=== PATIENT | male | born 1970 | race Caucasian/White ===

== ENCOUNTER 2021-07-03 19:33 | Inpatient (IN) ==
[2021-07-03] MEDS ORDERED: CEFEPIME 2,000 MG/20 ML VIAL IV STA (19:50)
[2021-07-03] MEDS ORDERED: dexAMETHasone**PF** 10 MG/ML VIAL IV ONE (19:50)
[2021-07-03] MEDS ORDERED: SODIUM CHLORIDE 0.9% 1000ML 1,000 ML IV SCH (20:00)
--- NOTE | 2021-07-03 20:04 | Emergency Department Note ---
History of Present Illness General Chief complaint: Shortness of Breath/Dyspnea Stated complaint: SATS IN 80S, COVID+, NOT EATING, DIZZY, SOB Time Seen by Provider: 07/03/21 19:40 History of Present Illness Maximum Pain Intensity: 6 50-year-old male presents to the ED with a chief complaint of increasing shortness of breath as well as some hemoptysis. The patient states that he originally started having symptoms around the . His was diagnosed with Covid but he came to the emergency department and his Covid test at that time was negative. He was otherwise feeling fine and he had minimal symptoms. He came back to the hospital yesterday with worsening symptoms. He had a CT scan of the chest that showed bilateral infiltrates consistent with Covid pneumonia. He did have a positive home Covid test on the . Yesterday was discharged on Zofran and prednisone. He also had Tessalon Perles and albuterol inhaler previously prescribed on the . He has progressively worsened and returns today for further evaluation. The patient had pulse ox of 74% oxygen saturation in triage on room air. He has not been eating or drinking well and has been feeling lightheaded.He is increasingly weak. His shortness of breath is worse with exertion. Home Medications Medication Instructions Recorded Confirmed Type albuterol sulfate 90 mcg/actuation 2 inh INHALATION Q6H #18 g 06/22/21 07/03/21 Rx aerosol inhaler benzonatate 200 mg capsule 200 mg PO TID PRN #60 cap 06/22/21 07/03/21 Rx acetaminophen 500 mg tablet 500 - 1,000 mg PO Q6H PRN 07/02/21 07/03/21 History doxylamine-dextromethorphan 6.25 15 ml PO Q4H PRN 07/02/21 07/03/21 History mg-15 mg/15 mL oral solution (Vicks NyQuil Cough) hydrocodone-homatropine 5 mg-1.5 5 - 10 ml PO Q6H PRN #100 ml 07/02/21 07/03/21 Rx mg/5 mL (5 mL) oral syrup (Hycodan) ibuprofen 200 mg tablet 400 mg PO Q6H PRN 07/02/21 07/03/21 History multivitamin with minerals-folic 2 tab PO DAILY 07/02/21 07/03/21 History acid 200 mcg chewable tablet (Men's Daily Gummies) ondansetron 4 mg disintegrating 4 mg PO Q6H PRN #20 tab 07/02/21 07/03/21 Rx tablet prednisone 50 mg tablet 50 mg PO DAILY 5 Days #5 tab 07/02/21 07/03/21 Rx Allergies Allergy/AdvReac Type Severity Reaction Status Date / Time No Known Allergies Allergy Verified 07/02/21 11:25 Past Med/Surg History Medical History No significant medical problems Surgical History No history of previous surgery Social History Smoking Status: Never smoker Preferred Language: Kazakh marital status: Current Living Situation: Family current occupational status: employed Feels Safe at Home: Yes Review of Systems A total of 10 systems reviewed and were otherwise negative Physical Exam Vital Signs Vital Signs - 24 hr 07/03/21 19:35 07/03/21 19:47 07/03/21 19:55 Temperature 36.6 C Temperature Source Temporal Artery Scan Pulse Rate 84 58 L Pulse Rate [Right Finger] Pulse Rate from SpO2 Sensor 58 L Pulse Rhythm Regular Pulse Strength Normal Respiratory Rate 18 22 Respiratory Effort / Characteristics Non-Labored Spontaneous Respiratory Depth Normal Respiratory Pattern Regular Blood Pressure 100/60 Blood Pressure [Right Arm] Blood Pressure Mean 73 Blood Pressure Mean [Right Arm] Blood Pressure Position Sitting Blood Pressure Position [Right Arm] Pulse Oximetry 74 L 92 97 Oxygen Delivery Method Room Air Oxymask Oxymask Oxygen Flow Rate 10 5 Sepsis Recent Fever Within 48 Hours Yes Sepsis New/Unexplained Change in Mental Status N/A Sepsis Action Taken by Nursing No Action Required 07/03/21 19:58 07/03/21 20:00 07/03/21 20:10 Temperature Temperature Source Pulse Rate 57 L 58 L 64 Pulse Rate [Right Finger] 59 L Pulse Rate from SpO2 Sensor 58 L 65 Pulse Rhythm Pulse Strength Respiratory Rate 24 20 20 Respiratory Effort / Characteristics Spontaneous Respiratory Depth Respiratory Pattern Blood Pressure 105/67 Blood Pressure [Right Arm] 105/67 Blood Pressure Mean 79 Blood Pressure Mean [Right Arm] 79 Blood Pressure Position Blood Pressure Position [Right Arm] Sitting Pulse Oximetry 98 98 95 Oxygen Delivery Method Oxymask Oxymask Oxymask Oxygen Flow Rate 10 5 4 Sepsis Recent Fever Within 48 Hours Sepsis New/Unexplained Change in Mental Status Sepsis Action Taken by Nursing 07/03/21 20:20 07/03/21 20:30 07/03/21 20:40 Temperature Temperature Source Pulse Rate 59 L 69 76 Pulse Rate [Right Finger] Pulse Rate from SpO2 Sensor 59 L 70 74 Pulse Rhythm Pulse Strength Respiratory Rate 22 20 20 Respiratory Effort / Characteristics Spontaneous Spontaneous Respiratory Depth Respiratory Pattern Blood Pressure 115/65 Blood Pressure [Right Arm] Blood Pressure Mean 81 Blood Pressure Mean [Right Arm] Blood Pressure Position Blood Pressure Position [Right Arm] Pulse Oximetry 96 96 95 Oxygen Delivery Method Oxymask Oxymask Oxymask Oxygen Flow Rate 4 4 4 Sepsis Recent Fever Within 48 Hours Sepsis New/Unexplained Change in Mental Status Sepsis Action Taken by Nursing 07/03/21 20:50 07/03/21 21:00 07/03/21 21:10 Temperature Temperature Source Pulse Rate 70 78 84 Pulse Rate [Right Finger] Pulse Rate from SpO2 Sensor 70 77 82 Pulse Rhythm Pulse Strength Respiratory Rate 20 20 22 Respiratory Effort / Characteristics Spontaneous Respiratory Depth Respiratory Pattern Blood Pressure 88/60 L Blood Pressure [Right Arm] Blood Pressure Mean 69 Blood Pressure Mean [Right Arm] Blood Pressure Position Blood Pressure Position [Right Arm] Pulse Oximetry 98 90 90 Oxygen Delivery Method Oxymask Oxymask Oxymask Oxygen Flow Rate 4 4 4 Sepsis Recent Fever Within 48 Hours Sepsis New/Unexplained Change in Mental Status Sepsis Action Taken by Nursing 07/03/21 21:20 07/03/21 21:26 07/03/21 21:30 Temperature Temperature Source Pulse Rate 70 70 69 Pulse Rate [Right Finger] Pulse Rate from SpO2 Sensor 70 71 68 Pulse Rhythm Pulse Strength Respiratory Rate 22 20 22 Respiratory Effort / Characteristics Spontaneous Respiratory Depth Respiratory Pattern Blood Pressure 101/63 101/63 Blood Pressure [Right Arm] Blood Pressure Mean 75 75 Blood Pressure Mean [Right Arm] Blood Pressure Position Blood Pressure Position [Right Arm] Pulse Oximetry 95 93 93 Oxygen Delivery Method Oxymask Oxymask Oxymask Oxygen Flow Rate 4 4 4 Sepsis Recent Fever Within 48 Hours Sepsis New/Unexplained Change in Mental Status Sepsis Action Taken by Nursing 07/03/21 21:34 07/03/21 21:40 07/03/21 21:50 Temperature Temperature Source Pulse Rate 72 71 68 Pulse Rate [Right Finger] Pulse Rate from SpO2 Sensor 73 72 69 Pulse Rhythm Pulse Strength Respiratory Rate Respiratory Effort / Characteristics Respiratory Depth Respiratory Pattern Blood Pressure 106/53 L Blood Pressure [Right Arm] Blood Pressure Mean 70 Blood Pressure Mean [Right Arm] Blood Pressure Position Blood Pressure Position [Right Arm] Pulse Oximetry 93 93 93 Oxygen Delivery Method Oxymask Oxymask Oxymask Oxygen Flow Rate 4 4 4 Sepsis Recent Fever Within 48 Hours Sepsis New/Unexplained Change in Mental Status Sepsis Action Taken by Nursing 07/03/21 22:00 Temperature Temperature Source Pulse Rate 68 Pulse Rate [Right Finger] Pulse Rate from SpO2 Sensor 71 Pulse Rhythm Pulse Strength Respiratory Rate 20 Respiratory Effort / Characteristics Respiratory Depth Respiratory Pattern Blood Pressure 103/67 Blood Pressure [Right Arm] Blood Pressure Mean 79 Blood Pressure Mean [Right Arm] Blood Pressure Position Blood Pressure Position [Right Arm] Pulse Oximetry 91 Oxygen Delivery Method Oxymask Oxygen Flow Rate 4 Sepsis Recent Fever Within 48 Hours Sepsis New/Unexplained Change in Mental Status Sepsis Action Taken by Nursing CONSTITUTIONAL/VITAL SIGNS: Reviewed / noted above. GENERAL: Non-toxic in appearance. INTEGUMENTARY: Warm, dry, and [place]. HEAD: Normocephalic. EYES: without scleral icterus or trauma. ENT/OROPHARYNX: clear and moist. LYMPHADENOPATHY/NECK: Is supple without lymphadenopathy or meningismus. RESPIRATORY: Coarse bilateral left less than right to auscultation bilaterally. Mild increased work of breathing. CARDIOVASCULAR: Regular rate and rhythm. GI/ABDOMEN: Soft and nontender. No organomegaly or pulsatile mass. EXTREMITIES: Warm and well perfused. BACK: No CVA tenderness. NEUROLOGICAL: Intact without focal deficits. PSYCHIATRIC: normal affect. MUSCULOSKELETAL: Normally developed with good muscle tone. TRIAGE NURSING DOCUMENTATION REVIEWED. Course Administered Medications Sodium Chloride (Nss 1000ml) 1,000 mls @ 999 mls/hr IV .Q1H1M ONE Stop: 07/03/21 22:19 Last Admin: 07/03/21 21:31 Dose: 999 mls/hr Documented by: [id number] Discontinued Medications Dexamethasone Sodium Phosphate (DexamethasonePf 10 Mg/Ml Vial) 10 mg IV NOW ONE Stop: 07/03/21 19:51 Last Admin: 07/03/21 20:21 Dose: 10 mg Documented by: [id number] Sodium Chloride (Nss 1000ml) 1,000 mls @ 999 mls/hr IV .Q1H1M GABINO Stop: 07/03/21 21:00 Last Infusion: 07/03/21 21:21 Dose: 0 mls/hr Documented by: [id number] Admin: 07/03/21 20:20 Dose: 999 mls/hr Documented by: [id number] Cefepime HCl (Maxipime) 2,000 mg in 20 mls @ 5 mls/min IV NOW STA; Protocol Stop: 07/03/21 19:53 Last Admin: 07/03/21 20:21 Dose: 5 mls/min Documented by: [id number] Sodium Chloride (Nss) 500 mls @ 999 mls/hr IV .Q31M ONE Stop: 07/03/21 21:49 Last Infusion: 07/03/21 22:03 Dose: 0 mls/hr Documented by: [id number] Admin: 07/03/21 21:31 Dose: 999 mls/hr Documented by: [id number] Critical Care Time Critical Care Time: Yes Total Critical Care Time: 30 I have personally spent 30 minutes of critical care time in the direct management of this patient. This includes bedside care, interpretation of diagnostic studies, and testing, discussion with consultants, patient, and family members, and other required patient management activities. This 30 m inutes is in excess of all separately billable procedures. Medical Decision Making Differential Diagnosis The differential was considered includes acute myocardial infarction, acute coronary syndrome, myocarditis, pericarditis, pericardial effusions /tamponad, esophageal perforation, pulmonary embolism, pneumonia, pneumothorax, cardiomyopathy, congestive heart, anemia , COPD/asthma exacerbation. Medical Records Attestation: I reviewed the patient's medical records. Home Medications Current Medication List: was personally reviewed by me Laboratory Data Attestation: I reviewed the patient's lab results. Result diagrams: 07/03/21 20:14 07/03/21 20:14 Lab Results 07/03/21 07/03/21 07/03/21 Range/Units 20:14 20:14 20:14 WBC 11.86 H (4.8-10.8) K/uL RBC 4.52 L (4.7-6.1) M/uL Hgb 14.2 (14.0-18.0) g/dL Hct 41.1 L (42-52) % MCV 90.9 (80-100) fL MCH 31.4 (25-34) pg MCHC 34.5 (32-36) g/dL RDW Std Deviation 42.8 (36.4-46.3) fL RDW Coeff of Slim 12.7 (11.5-14.5) % Plt Count 171 (130-400) K/uL MPV 10.2 (7.4-10.4) fL Immature Gran % (Auto) 0.2 % Neut % (Auto) 91.7 % Lymph % (Auto) 5.7 % Moore % (Auto) 2.4 % Eos % (Auto) 0.0 % Baso % (Auto) 0.0 % Neut # (Auto) 10.87 H (1.4-6.5) K/uL Lymph # (Auto) 0.68 L (1.2-3.4) K/uL Moore # (Auto) 0.29 (0.11-0.59) K/uL Eos # (Auto) 0.00 (0-0.5) K/uL Baso # (Auto) 0.00 (0-0.2) K/uL Immature Gran # (Auto) 0.02 (0.00-0.02) K/uL PT 9.9 (9.0-12.0) Seconds INR 1.0 (0.9-1.1) APTT 28.6 (21.0-31.0) Seconds PTT Ratio 1.1 Sodium 137 (136-145) mmol/L Potassium 3.9 (3.5-5.1) mmol/L Chloride 105 (98-107) mmol/L Carbon Dioxide 24 (21-32) mmol/L Anion Gap 8 (3-11) BUN 19 (6-23) mg/dl Creatinine 1.10 (0.6-1.4) mg/dl Est Cr Clr Drug Dosing 80.4 ml/min Est GFR ( Amer) 90.9 ml/min Est GFR (Non-Af Amer) 78.4 ml/min BUN/Creatinine Ratio 17.3 (10-20) Glucose 174 H (70-99(Fasting)) mg/dl Lactate (0.4-2.0) mmol/L Calcium 8.6 (8.5-10.1) mg/dl Magnesium 2.0 (1.7-2.4) mg/dl Total Bilirubin 0.7 (0.2-1.0) mg/dl AST 51 H (13-39) U/L ALT 83 H (7-52) U/L Alkaline Phosphatase 127 H (34-104) U/L Troponin I 0.03 (0-0.04) ng/ml C-Reactive Protein (0-0.5) mg/dl Total Protein 6.4 (6.0-8.3) gm/dl Albumin 3.5 (3.4-5.0) gm/dl Globulin 2.9 (2.5-4.0) gm/dl Albumin/Globulin Ratio 1.2 (0.9-2) Procalcitonin (0-0.5) ng/ml Adenovirus (PCR) (NotDetected) B. pertussis DNA (PCR) (NotDetected) B.parapertussis DNA PCR (NotDetected) C. pneumoniae DNA (PCR) (NotDetected) Coronavirus OC43 (PCR) (NotDetected) Coronavirus HKU1 (PCR) (NotDetected) Coronavirus 229E (PCR) (NotDetected) SARS-CoV-2 (PCR) (NotDetected) Coronavirus NL63 (PCR) (NotDetected) Human Metapneumovir PCR (NotDetected) Influenza Type A (PCR) (NotDetected) Influenza Type B (PCR) (NotDetected) M. pneumoniae (PCR) (NotDetected) Parainfluenza 1 (PCR) (NotDetected) Parainfluenza 2 (PCR) (NotDetected) Parainfluenza 3 (PCR) (NotDetected) Parainfluenza 4 (PCR) (NotDetected) RSV (PCR) (NotDetected) Entero/Rhino (PCR) (NotDetected) 07/03/21 07/03/21 07/03/21 Range/Units 20:14 20:14 20:14 WBC (4.8-10.8) K/uL RBC (4.7-6.1) M/uL Hgb (14.0-18.0) g/dL Hct (42-52) % MCV (80-100) fL MCH (25-34) pg MCHC (32-36) g/dL RDW Std Deviation (36.4-46.3) fL RDW Coeff of Slim (11.5-14.5) % Plt Count (130-400) K/uL MPV (7.4-10.4) fL Immature Gran % (Auto) % Neut % (Auto) % Lymph % (Auto) % Moore % (Auto) % Eos % (Auto) % Baso % (Auto) % Neut # (Auto) (1.4-6.5) K/uL Lymph # (Auto) (1.2-3.4) K/uL Moore # (Auto) (0.11-0.59) K/uL Eos # (Auto) (0-0.5) K/uL Baso # (Auto) (0-0.2) K/uL Immature Gran # (Auto) (0.00-0.02) K/uL PT (9.0-12.0) Seconds INR (0.9-1.1) APTT (21.0-31.0) Seconds PTT Ratio Sodium (136-145) mmol/L Potassium (3.5-5.1) mmol/L Chloride (98-107) mmol/L Carbon Dioxide (21-32) mmol/L Anion Gap (3-11) BUN (6-23) mg/dl Creatinine (0.6-1.4) mg/dl Est Cr Clr Drug Dosing ml/min Est GFR ( Amer) ml/min Est GFR (Non-Af Amer) ml/min BUN/Creatinine Ratio (10-20) Glucose (70-99(Fasting)) mg/dl Lactate 1.5 (0.4-2.0) mmol/L Calcium (8.5-10.1) mg/dl Magnesium (1.7-2.4) mg/dl Total Bilirubin (0.2-1.0) mg/dl AST (13-39) U/L ALT (7-52) U/L Alkaline Phosphatase (34-104) U/L Troponin I (0-0.04) ng/ml C-Reactive Protein (0-0.5) mg/dl Total Protein (6.0-8.3) gm/dl Albumin (3.4-5.0) gm/dl Globulin (2.5-4.0) gm/dl Albumin/Globulin Ratio (0.9-2) Procalcitonin 0.23 (0-0.5) ng/ml Adenovirus (PCR) Not Detected (NotDetected) B. pertussis DNA (PCR) Not Detected (NotDetected) B.parapertussis DNA PCR Not Detected (NotDetected) C. pneumoniae DNA (PCR) Not Detected (NotDetected) Coronavirus OC43 (PCR) Not Detected (NotDetected) Coronavirus HKU1 (PCR) Not Detected (NotDetected) Coronavirus 229E (PCR) Not Detected (NotDetected) SARS-CoV-2 (PCR) DETECTED A* (NotDetected) Coronavirus NL63 (PCR) Not Detected (NotDetected) Human Metapneumovir PCR Not Detected (NotDetected) Influenza Type A (PCR) Not Detected (NotDetected) Influenza Type B (PCR) Not Detected (NotDetected) M. pneumoniae (PCR) Not Detected (NotDetected) Parainfluenza 1 (PCR) Not Detected (NotDetected) Parainfluenza 2 (PCR) Not Detected (NotDetected) Parainfluenza 3 (PCR) Not Detected (NotDetected) Parainfluenza 4 (PCR) Not Detected (NotDetected) RSV (PCR) Not Detected (NotDetected) Entero/Rhino (PCR) Not Detected (NotDetected) 07/03/21 Range/Units 20:14 WBC (4.8-10.8) K/uL RBC (4.7-6.1) M/uL Hgb (14.0-18.0) g/dL Hct (42-52) % MCV (80-100) fL MCH (25-34) pg MCHC (32-36) g/dL RDW Std Deviation (36.4-46.3) fL RDW Coeff of Slim (11.5-14.5) % Plt Count (130-400) K/uL MPV (7.4-10.4) fL Immature Gran % (Auto) % Neut % (Auto) % Lymph % (Auto) % Moore % (Auto) % Eos % (Auto) % Baso % (Auto) % Neut # (Auto) (1.4-6.5) K/uL Lymph # (Auto) (1.2-3.4) K/uL Moore # (Auto) (0.11-0.59) K/uL Eos # (Auto) (0-0.5) K/uL Baso # (Auto) (0-0.2) K/uL Immature Gran # (Auto) (0.00-0.02) K/uL PT (9.0-12.0) Seconds INR (0.9-1.1) APTT (21.0-31.0) Seconds PTT Ratio Sodium (136-145) mmol/L Potassium (3.5-5.1) mmol/L Chloride (98-107) mmol/L Carbon Dioxide (21-32) mmol/L Anion Gap (3-11) BUN (6-23) mg/dl Creatinine (0.6-1.4) mg/dl Est Cr Clr Drug Dosing ml/min Est GFR ( Amer) ml/min Est GFR (Non-Af Amer) ml/min BUN/Creatinine Ratio (10-20) Glucose (70-99(Fasting)) mg/dl Lactate (0.4-2.0) mmol/L Calcium (8.5-10.1) mg/dl Magnesium (1.7-2.4) mg/dl Total Bilirubin (0.2-1.0) mg/dl AST (13-39) U/L ALT (7-52) U/L Alkaline Phosphatase (34-104) U/L Troponin I (0-0.04) ng/ml C-Reactive Protein 13.36 H (0-0.5) mg/dl Total Protein (6.0-8.3) gm/dl Albumin (3.4-5.0) gm/dl Globulin (2.5-4.0) gm/dl Albumin/Globulin Ratio (0.9-2) Procalcitonin (0-0.5) ng/ml Adenovirus (PCR) (NotDetected) B. pertussis DNA (PCR) (NotDetected) B.parapertussis DNA PCR (NotDetected) C. pneumoniae DNA (PCR) (NotDetected) Coronavirus OC43 (PCR) (NotDetected) Coronavirus HKU1 (PCR) (NotDetected) Coronavirus 229E (PCR) (NotDetected) SARS-CoV-2 (PCR) (NotDetected) Coronavirus NL63 (PCR) (NotDetected) Human Metapneumovir PCR (NotDetected) Influenza Type A (PCR) (NotDetected) Influenza Type B (PCR) (NotDetected) M. pneumoniae (PCR) (NotDetected) Parainfluenza 1 (PCR) (NotDetected) Parainfluenza 2 (PCR) (NotDetected) Parainfluenza 3 (PCR) (NotDetected) Parainfluenza 4 (PCR) (NotDetected) RSV (PCR) (NotDetected) Entero/Rhino (PCR) (NotDetected) ECG Data Attestation: I personally reviewed and interpreted this ECG as follows: Additional Comments: Twelve-lead EKG: Per my interpretation shows a normal sinus rhythm at a rate of 62. No ST elevation. No PVCs. Normal QTC. MDM Narrative Patient presents to the ED with a chief complaint of increasing shortness of breath. Home Covid test was positive on the . CT scan yesterday showed bilateral infiltrates and no PE. His pulse ox today showed 74% on room air. He is saturating 98% on 10 L via facemask. Lung sounds coarse right greater than left. Chest x-ray shows bilateral pneumonia. CBC and chemistry panel was unremarkable. Lactic acid was normal. EKG shows a normal sinus rhythm. There is a transaminitis. Troponin was negative. Glucose is 171. CRP is 13. The patient was empirically given IV fluids, 30 cc/kg. He was given IV Decadron on IV cefepime as well as albuterol. The patient was told the results. Patient will be seen by the hospitalist. Impression & Plan Bilateral pneumonia, Hypoxia Discharge Plan Visit Data Chief Complaint: Shortness of Breath/Dyspnea Stated Complaint: SATS IN 80S, COVID+, NOT EATING, DIZZY, SOB ED Provider: Jose Mar Discharge Problem: Bilateral pneumonia, Hypoxia Forms Stand Alone Forms: My [facility] [employer] Prescriptions Prescriptions: No Action albuterol sulfate 90 mcg/actuation HFA aerosol inhaler 2 inh inhalation Q6H Qty: 18 RF: 2 benzonatate 200 mg capsule 200 mg PO TID PRN (Reason: cough) Qty: 60 RF: 0 acetaminophen 500 mg Tablet 500 - 1,000 mg PO Q6H PRN (Reason: Pain) RF: 0 ibuprofen 200 mg Tablet 400 mg PO Q6H PRN (Reason: Pain) RF: 0 Vicks NyQuil Cough 6.25-15 mg/15 mL Solution 15 ml PO Q4H PRN (Reason: Cough) RF: 0 Men's Daily Gummies 200 mcg Tablet,Chewable 2 tab PO DAILY RF: 0 prednisone 50 mg tablet 50 mg PO DAILY 5 Days Qty: 5 RF: 0 ondansetron 4 mg tablet,disintegrating 4 mg PO Q6H PRN (Reason: nausea and vomiting) Qty: 20 RF: 0 hydrocodone-homatropine [Hycodan] 5-1.5 mg/5 mL (5 mL) syrup 5 - 10 ml PO Q6H PRN (Reason: cough) Qty: 100 RF: 0 Referrals Referrals: PCP,NO [Primary Care Provider] -
[2021-07-03 20:27] LABS: Hematocrit (blood only) 41.1 % (42-52); Hemoglobin 14.2 g/dL (14.0-18.0); Immature Granulocytes # (auto) 0.02 K/uL (0.00-0.02); Immature Granulocytes % (auto) 0.2 %; Lymphocytes # (auto) 0.68 K/uL (1.2-3.4); Lymphocytes % (auto) 5.7 %; Mean Corpuscular Hemoglobin 31.4 pg (25-34); Mean Corpuscular Hgb Conc 34.5 g/dL (32-36); Mean Corpuscular Volume 90.9 fL (80-100); Mean Platelet Volume 10.2 fL (7.4-10.4); Monocytes # (auto) 0.29 K/uL (0.11-0.59); Monocytes % (auto) 2.4 %; Neutrophils # (auto) 10.87 K/uL (1.4-6.5); Neutrophils % (auto) 91.7 %; Platelet Count 171 K/uL (130-400); RDW Coefficient of Variation 12.7 % (11.5-14.5); RDW Standard Deviation 42.8 fL (36.4-46.3); Red Blood Count 4.52 M/uL (4.7-6.1); White Blood Count 11.86 K/uL (4.8-10.8)
[2021-07-03 20:37] LABS: Partial Thromboplastin Ratio 1.1; Partial Thromboplastin Time 28.6 Seconds (21.0-31.0); Prothrombin Time 9.9 Seconds (9.0-12.0)
[2021-07-03 20:46] LABS: Albumin Globulin Ratio 1.2 (0.9-2); Albumin Level 3.5 gm/dl (3.4-5.0); BUN Creatinine Ratio 17.3 (10-20); Bilirubin,Total 0.7 mg/dl (0.2-1.0); Calcium 8.6 mg/dl (8.5-10.1); Creatinine Clr Calc Pharmacy 80.4 ml/min; Est GFR (African American) 90.9 ml/min; Est GFR (Non-African American) 78.4 ml/min; Globulin 2.9 gm/dl (2.5-4.0); Potassium 3.9 mmol/L (3.5-5.1); Total Protein 6.4 gm/dl (6.0-8.3)
[2021-07-03 20:48] LABS: Troponin I 0.03 ng/ml (0-0.04)
[2021-07-03 21:16] LABS: Adenovirus PCR Not Detected (NotDetected); Bordetella parapertussis PCR Not Detected (NotDetected); Bordetella pertussis PCR Not Detected (NotDetected); Chlamydia pneumoniae PCR Not Detected (NotDetected); Coronavirus 229E PCR Not Detected (NotDetected); Coronavirus HKU1 PCR Not Detected (NotDetected); Coronavirus NL63 PCR Not Detected (NotDetected); Coronavirus OC43PCR Not Detected (NotDetected); Human Metapneumovirus PCR Not Detected (NotDetected); Influenza A PCR Not Detected (NotDetected); Influenza B PCR Not Detected (NotDetected); Mycoplasma pneumoniae PCR Not Detected (NotDetected); Parainfluenza Virus 1 PCR Not Detected (NotDetected); Parainfluenza Virus 2 PCR Not Detected (NotDetected); Parainfluenza Virus 3 PCR Not Detected (NotDetected); Parainfluenza Virus 4 PCR Not Detected (NotDetected); Respiratory Syncytial VirusPCR Not Detected (NotDetected); Rhinovirus/Enterovirus PCR Not Detected (NotDetected)
[2021-07-03] MEDS ORDERED: SODIUM CHLORIDE 0.9% 500 ML IV ONE (21:19)
[2021-07-03] MEDS ORDERED: SODIUM CHLORIDE 0.9% 1000ML 1,000 ML IV ONE (21:19)
[2021-07-03 21:29] LABS: Coronavirus CoV-2 (COVID19)PCR DETECTED (NotDetected)
[2021-07-03] MEDS ORDERED: ALBUTEROL HFA 8 GM INHALER INH ONE (22:02)
[2021-07-03] MEDS ORDERED: BENZONATATE 100 MG CAPSULE PO ONE (23:30)
[2021-07-03] MEDS ORDERED: hydrOXYzine HCl 10 MG TAB PO STA (23:30)
--- NOTE | 2021-07-03 23:30 | History & Physical Report ---
Date of Service July 03, 2021 Assessment & Plan (1) Acute hypoxemic respiratory failure: Plan: Secondary to severe COVID-19 pneumonia superimposed bacterial infection Transaminitis Steroid-induced hyperglycemia rule out DM Medical telemetry Supplemental O2 Decadron for severe COVID-19 pneumonia. Neb treatment for bronchospasm causing hypoxemia Azithromycin for superimposed bacterial infection. Antitussives for hemoptysis Follow LFTs, liver ultrasound if with progression Pulmonary consult if without improvement Check hemoglobin A1c DVT prophylaxis SCDs Re: Hemoptysis Full code Total critical care time was 40 minutes. Patient requests for his to be updated of his progress. Ms. Alyson Ceja, contact #[phone]. Text document was generated using InfoRemate voice recognition software. It may contain grammatical or spelling errors. Kindly contact undersigned for clarification of any documentation item in question. History of Present Illness Chief Complaint: Worsening shortness of breath Primary Care Provider: NO PCP History obtained from patient and records. No significant medical history. Two prior ER visits for the month of June,. 3 weeks ago, patient had flulike symptoms with stuffy nose, headache sore throat, body aches, fatigue and diarrhea. Some shortness of breath with right- sided chest pain with coughing. Recent COVID-19 contacts. Patient has not received COVID-19 vaccination. Patient consulted ER 10 days ago. COVID-19 test was negative. Patient sent home after unremarkable work-up. 2 days ago, patient noted worsening junky cough symptoms with shortness of breath. Patient consulted ER. COVID-[address] chest showed viral pneumonia. No pulmonary embolism. IV Decadron given at the ER. Patient sent home on prednisone course. Patient returned to ER for worsening cough with hemoptysis symptoms. Achy headache and upper abdominal pain symptoms from coughing as per patient. O2 sats upon arrival at the ER 80s on room air. Patient received Cefepime and Decadron at the ER. 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 Allergies Allergy/AdvReac Type Severity Reaction Status Date / Time No Known Allergies Allergy Verified 07/02/21 11:25 Home Medications Medication Instructions Recorded Confirmed Type albuterol sulfate 90 mcg/actuation 2 inh INHALATION Q6H #18 g 06/22/21 07/03/21 Rx aerosol inhaler benzonatate 200 mg capsule 200 mg PO TID PRN #60 cap 06/22/21 07/03/21 Rx acetaminophen 500 mg tablet 500 - 1,000 mg PO Q6H PRN 07/02/21 07/03/21 History doxylamine-dextromethorphan 6.25 15 ml PO Q4H PRN 07/02/21 07/03/21 History mg-15 mg/15 mL oral solution (Vicks NyQuil Cough) hydrocodone-homatropine 5 mg-1.5 5 - 10 ml PO Q6H PRN #100 ml 07/02/21 07/03/21 Rx mg/5 mL (5 mL) oral syrup (Hycodan) ibuprofen 200 mg tablet 400 mg PO Q6H PRN 07/02/21 07/03/21 History multivitamin with minerals-folic 2 tab PO DAILY 07/02/21 07/03/21 History acid 200 mcg chewable tablet (Men's Daily Gummies) ondansetron 4 mg disintegrating 4 mg PO Q6H PRN #20 tab 07/02/21 07/03/21 Rx tablet prednisone 50 mg tablet 50 mg PO DAILY 5 Days #5 tab 07/02/21 07/03/21 Rx Past Med/Surg History Medical History No significant medical problems Surgical History No history of previous surgery Social History Smoking Status: Never smoker Hx Alcohol Use: No Hx Substance Use: No Preferred Language: Emirati Communication Ability: 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 Beliefs That Will Affect Care: None marital status: Current Living Situation: Spouse current occupational status: employed Feels Safe at Home: Yes Safety Concerns: Feels Safe At This Time Assistive Devices: Contacts and Glasses Assistive Devices Comment: pt has 1 contact in Review of Systems Review of Systems: As per HPI, all 10 systems reviewed, all other ROS negative Physical Exam Physical Exam: GENERAL: uncomfortable, respiratory distress, incessant coughing SKIN: Normal color, warm HEENT: Cobb palpebral conjunctivae, no ptosis, dry buccal mucosa, O2 mask in place NECK : Supple, no tenderness CHEST : CTA, no tenderness HEART : RRR, no obvious murmurs ABDOMEN: Some distention, nontender EXTREMITIES : No LE swelling/tenderness, no other conspicuous deformities noted NEUROLOGIC : Coherent, no facial asymmetry, no other gross focality Results & Data Results & Data ([facility]) Vital Signs (Past 12 Hours) Vital Signs Temp Pulse Pulse Resp BP BP Pulse Ox 07/03/21 22:40 81 15 94 07/03/21 22:30 81 22 111/67 95 07/03/21 22:20 75 38 H 89 L 07/03/21 22:10 71 41 H 90 07/03/21 22:00 68 22 103/67 91 07/03/21 21:50 68 22 93 07/03/21 21:40 71 22 93 07/03/21 21:34 72 22 106/53 L 93 07/03/21 21:30 69 22 93 07/03/21 21:26 70 20 101/63 93 07/03/21 21:20 70 22 101/63 95 07/03/21 21:10 84 22 90 07/03/21 21:00 78 20 88/60 L 90 07/03/21 20:50 70 20 98 07/03/21 20:40 76 20 95 07/03/21 20:30 69 20 115/65 96 07/03/21 20:20 59 L 22 96 07/03/21 20:10 64 20 95 07/03/21 20:00 58 L 59 L 20 105/67 105/67 98 07/03/21 19:58 57 L 24 98 07/03/21 19:55 58 L 22 97 07/03/21 19:47 92 07/03/21 19:35 36.6 C 84 18 100/60 74 L Laboratory Results Laboratory Results WBC 11.86 K/uL (4.8-10.8) H 07/03/21 20:14 RBC 4.52 M/uL (4.7-6.1) L 07/03/21 20:14 Hgb 14.2 g/dL (14.0-18.0) 07/03/21 20:14 Hct 41.1 % (42-52) L 07/03/21 20:14 MCV 90.9 fL (80-100) 07/03/21 20:14 MCH 31.4 pg (25-34) 07/03/21 20:14 MCHC 34.5 g/dL (32-36) 07/03/21 20:14 RDW Std Deviation 42.8 fL (36.4-46.3) 07/03/21 20:14 RDW Coeff of Lsim 12.7 % (11.5-14.5) 07/03/21 20:14 Plt Count 171 K/uL (130-400) 07/03/21 20:14 MPV 10.2 fL (7.4-10.4) 07/03/21 20:14 Immature Gran % (Auto) 0.2 % 07/03/21 20:14 Neut % (Auto) 91.7 % 07/03/21 20:14 Lymph % (Auto) 5.7 % 07/03/21 20:14 [place] % (Auto) 2.4 % 07/03/21 20:14 Eos % (Auto) 0.0 % 07/03/21 20:14 Baso % (Auto) 0.0 % 07/03/21 20:14 Neut # (Auto) 10.87 K/uL (1.4-6.5) H 07/03/21 20:14 Lymph # (Auto) 0.68 K/uL (1.2-3.4) L 07/03/21 20:14 [place] # (Auto) 0.29 K/uL (0.11-0.59) 07/03/21 20:14 Eos # (Auto) 0.00 K/uL (0-0.5) 07/03/21 20:14 Baso # (Auto) 0.00 K/uL (0-0.2) 07/03/21 20:14 Immature Gran # (Auto) 0.02 K/uL (0.00-0.02) 07/03/21 20:14 PT 9.9 Seconds (9.0-12.0) 07/03/21 20:14 INR 1.0 (0.9-1.1) 07/03/21 20:14 APTT 28.6 Seconds (21.0-31.0) 07/03/21 20:14 PTT Ratio 1.1 07/03/21 20:14 Sodium 137 mmol/L (136-145) 07/03/21 20:14 Potassium 3.9 mmol/L (3.5-5.1) 07/03/21 20:14 Chloride 105 mmol/L (98-107) 07/03/21 20:14 Carbon Dioxide 24 mmol/L (21-32) 07/03/21 20:14 Anion Gap 8 (3-11) 07/03/21 20:14 BUN 19 mg/dl (6-23) 07/03/21 20:14 Creatinine 1.10 mg/dl (0.6-1.4) 07/03/21 20:14 Est Cr Clr Drug Dosing 80.4 ml/min 07/03/21 20:14 Est GFR ( Amer) 90.9 ml/min 07/03/21 20:14 Est GFR (Non-Af Amer) 78.4 ml/min 07/03/21 20:14 BUN/Creatinine Ratio 17.3 (10-20) 07/03/21 20:14 Glucose 174 mg/dl (70-99(Fasting)) H 07/03/21 20:14 Lactate 1.5 mmol/L (0.4-2.0) 07/03/21 20:14 Calcium 8.6 mg/dl (8.5-10.1) 07/03/21 20:14 Magnesium 2.0 mg/dl (1.7-2.4) 07/03/21 20:14 Total Bilirubin 0.7 mg/dl (0.2-1.0) 07/03/21 20:14 AST 51 U/L (13-39) H 07/03/21 20:14 ALT 83 U/L (7-52) H 07/03/21 20:14 Alkaline Phosphatase 127 U/L (34-104) H 07/03/21 20:14 Troponin I 0.03 ng/ml (0-0.04) 07/03/21 20:14 C-Reactive Protein 13.36 mg/dl (0-0.5) H 07/03/21 20:14 Total Protein 6.4 gm/dl (6.0-8.3) 07/03/21 20:14 Albumin 3.5 gm/dl (3.4-5.0) 07/03/21 20:14 Globulin 2.9 gm/dl (2.5-4.0) 07/03/21 20:14 Albumin/Globulin Ratio 1.2 (0.9-2) 07/03/21 20:14 Procalcitonin 0.23 ng/ml (0-0.5) 07/03/21 20:14 Adenovirus (PCR) Not Detected (NotDetected) 07/03/21 20:14 B. pertussis DNA (PCR) Not Detected (NotDetected) 07/03/21 20:14 B.parapertussis DNA PCR Not Detected (NotDetected) 07/03/21 20:14 C. pneumoniae DNA (PCR) Not Detected (NotDetected) 07/03/21 20:14 Coronavirus OC43 (PCR) Not Detected (NotDetected) 07/03/21 20:14 Coronavirus HKU1 (PCR) Not Detected (NotDetected) 07/03/21 20:14 Coronavirus 229E (PCR) Not Detected (NotDetected) 07/03/21 20:14 SARS-CoV-2 (PCR) DETECTED (NotDetected) A* 07/03/21 20:14 Coronavirus NL63 (PCR) Not Detected (NotDetected) 07/03/21 20:14 Human Metapneumovir PCR Not Detected (NotDetected) 07/03/21 20:14 Influenza Type A (PCR) Not Detected (NotDetected) 07/03/21 20:14 Influenza Type B (PCR) Not Detected (NotDetected) 07/03/21 20:14 M. pneumoniae (PCR) Not Detected (NotDetected) 07/03/21 20:14 Parainfluenza 1 (PCR) Not Detected (NotDetected) 07/03/21 20:14 Parainfluenza 2 (PCR) Not Detected (NotDetected) 07/03/21 20:14 Parainfluenza 3 (PCR) Not Detected (NotDetected) 07/03/21 20:14 Parainfluenza 4 (PCR) Not Detected (NotDetected) 07/03/21 20:14 RSV (PCR) Not Detected (NotDetected) 07/03/21 20:14 Entero/Rhino (PCR) Not Detected (NotDetected) 07/03/21 20:[address] chest initial read: Interval increase in severe diffuse patchyinfiltrates including areaswith a ground-glass appearance consistent with COVID-19 related pneumonia, greatest within the lower lobeswith dense consolidations and air bronchograms. No central pulmonaryarteryfilling defects to suggest pulmonaryarterythrombosis. No thoracic aortic aneurysmor dissection is present. Heart is normal in size. No pericardial fluid or thickening. No pleural effusion or pneumothorax. No acute fracture is identified. Limited images of the upper abdomen are unremarkable. CT abdomen pelvis initial read: No acute abnormality. No bowel obstruction or ileus. Moderate stool throughout the colon. No evidence for appendicitis. No evidence for diverticulitis. No free fluid. Liver is unremarkable. Gallbladder unremarkable without gallstones. No biliaryductal dilation. Pancreas is partiallyfattyreplaced.. Spleen is unremarkable. No obstructive uropathy. Kidneys are unremarkable. Urinarybladder is unremarkable. EKG as per my interpretation: Rate 60, NSR, RAD, no ischemia
[2021-07-03] MEDS ORDERED: AZITHROMYCIN 500 MG in DEXTROSE 5% 250 ML IV STA (23:32)
[2021-07-03] MEDS ORDERED: levoFLOXacin/D5W 750 MG/150 ML BAG IV STA (23:32)
[2021-07-03] MEDS ORDERED: ALBUT/IPRATROP 3MG/0.5MG NEB 3 ML VIAL NEB STA (23:37)
[2021-07-03] MEDS ORDERED: LACTATED RINGER'S 1,000 ML IV ONE (23:46)
[2021-07-04 00:17] LABS: Base Excess ABG -3.7 mEq/L (-9-1.8); HCO3 ABG 21 mmol/L (19-24); Oxygen Saturation ABG 93.7 % (90-95); PCO2 ABG 35 mmHg (35-46); PO2 ABG 66 mmHg (80-95); pH ABG 7.39 (7.35-7.45)
[2021-07-04 00:39] LABS: Allen Test Pos (Pos)
[2021-07-04] MEDS ORDERED: OPTIRAY 320 100ml IV ONE (01:56)
[2021-07-04] MEDS ORDERED: LEVALBUTEROL 1.25MG/0.5ML NEB INH PRN (02:03)
[2021-07-04] MEDS ORDERED: XOPENEX/ATROVENT 1.25mg/0.5MG NEB COMBO NEB PRN (02:03)
[2021-07-04] MEDS ORDERED: BENZONATATE 100 MG CAPSULE PO PRN (02:03)
[2021-07-04] MEDS ORDERED: IPRATROPIUM BROMIDE NEB SOLN 0.02% 2.5 ML VIAL INH PRN (02:43)
[2021-07-04] MEDS: ACETAMINOPHEN 325 MG TAB PO PRN ×2 (02:53→14:32)
[2021-07-04] MEDS ORDERED: FUROSEMIDE 40 MG/4 ML VIAL IV ONE (06:29)
[2021-07-04] MEDS ORDERED: dexAMETHasone 6 MG in SYRINGE 0 ML IV ONE (07:19)
[2021-07-04] MEDS ORDERED: XOPENEX/ATROVENT 1.25mg/0.5MG NEB COMBO NEB STA (07:33)
[2021-07-04] MEDS ORDERED: IPRATROPIUM BROMIDE NEB SOLN 0.02% 2.5 ML VIAL INH ONE (07:35)
[2021-07-04] MEDS ORDERED: LEVALBUTEROL 1.25MG/0.5ML NEB INH ONE (07:35)
[2021-07-04 07:39] LABS: Estimated Average Glucose 117 mg/dl; Hemoglobin A1C 5.7 % (4.5-5.6)
[2021-07-04] MEDS ORDERED: DEXTROMETHORPHAN POLYMR COMPLX 30 MG/5 ML UDP PO PRN (07:43)
--- NOTE | 2021-07-04 07:58 | XRay Report ---
XR chest 1V portable CLINICAL HISTORY: SEPSIS. Follow-up bilateral airspace opacities COMPARISON STUDY: 07/02/2021 TECHNIQUE: 1 view of the chest FINDINGS: Single frontal view of the chest demonstrates the cardiomediastinal silhouette to be within normal li mits. Compared to previous examination, there has been significant worsening of bilateral interstitia l and alveolar opacities characteristic of a viral type pneumonitis and Covid pneumonia. There is no evidence for pleural effusion. There is no evidence for vascular congestion. There is no acute osseou s pathology. IMPRESSION: Worsening bilateral interstitial and alveolar opacities most characteristic of Covid pneu monia. ACT 112: Negative or not required by law. Electronically signed by: Carlos Cruz M.D. 07/04/2021 7:56 AM
--- NOTE | 2021-07-04 08:02 | Pulmonary Consultation ---
Date of Consultation July 04, 2021 Assessment & Plan (1) Acute hypoxemic respiratory failure: (2) Bilateral pneumonia: (3) Pneumonia due to COVID-19 virus: (4) Hemoptysis: CT chest 07/03/2021 personally reviewed: Diffuse alveolar opacities appreciated bilaterally more on the right side Mild mediastinal lymphadenopathy Significantly worsened compared to the CT chest done on 07/02/2021 --Acute hypoxic respiratory failure Secondary to multilobar COVID-19 pneumonia COVID-19 PCR positive 07/03/2021 CRP 13.36 Procalcitonin 0.23 Continue with O2 supplementation to keep oxygen saturation between 90-92%. Awake proning will be helpful Continue with incentive spirometry Continue with flutter valve. Recommend patient to be kept euvolemic to negative balance --Hemoptysis Likely from chronic coughing and pneumonia Try to suppress the cough as much as possible Plan: Continue with high flow with CPAP/BiPAP rotation. Patient is very claustrophobic and unable to tolerate the CPAP/BiPAP. I did explain to the patient that BiPAP/CPAP is the bridge to prevent intubation if he is not able to tolerate that then he might need to be intubated in the near future given no improvement in his respiratory status. Try to keep the patient negative balance. DC IV fluids Dose of Tocilizumab to be given today Patient is critical and the possibility of him being intubated in the next 24-48 hours is high I have personally spent 51 minutes of critical care time in the direct management of this patient. This is a life/limb threatening event. This includes time spent evaluating patient, direct bedside care, chart review, placing orders, interpretation of diagnostic studies, discussion with consultants, patient, and family members, as well as other required patient management activities. This time is exclusive of all separately billable procedures, and teaching time and separate from and in addition to any other critical care service time. Please note the above document was generated using voice recognition software. It may contain grammatical, syntax or spelling errors. History of Present Illness Attending Physician: Graeme Parish MD History of Present Illness 50-year-old male admitted to the hospital because of hypoxic respiratory failure patient was found to have Covid-19 pneumonia Patient has been having symptoms for approximately 10 days progressively getting worse in the last 3-4 days He has been complaining of shortness of breath and cough. He is having blood- tinged phlegm since last 2 days. Patient is not vaccinated against COVID-19 Patient's also had Covid but she is vaccinated Denies any chest pain at the time of examination He was on 40 L, 100% FiO2 saturating 91-92% Complains of mild headache, mild nausea and vomiting. Poor appetite. Patient did have diarrhea back at home but it has resolved since coming to the hospital. No hematuria, no hematochezia. Social history: Lifetime non-smoker, no alcohol Allergies Allergy/AdvReac Type Severity Reaction Status Date / Time No Known Allergies Allergy Verified 07/02/21 11:25 Home Medications Medication Instructions Recorded Confirmed Type albuterol sulfate 90 mcg/actuation 2 inh INHALATION Q6H #18 g 06/22/21 07/03/21 Rx aerosol inhaler benzonatate 200 mg capsule 200 mg PO TID PRN #60 cap 06/22/21 07/03/21 Rx acetaminophen 500 mg tablet 500 - 1,000 mg PO Q6H PRN 07/02/21 07/03/21 History doxylamine-dextromethorphan 6.25 15 ml PO Q4H PRN 07/02/21 07/03/21 History mg-15 mg/15 mL oral solution (Vicks NyQuil Cough) hydrocodone-homatropine 5 mg-1.5 5 - 10 ml PO Q6H PRN #100 ml 07/02/21 07/03/21 Rx mg/5 mL (5 mL) oral syrup (Hycodan) ibuprofen 200 mg tablet 400 mg PO Q6H PRN 07/02/21 07/03/21 History multivitamin with minerals-folic 2 tab PO DAILY 07/02/21 07/03/21 History acid 200 mcg chewable tablet (Men's Daily Gummies) ondansetron 4 mg disintegrating 4 mg PO Q6H PRN #20 tab 07/02/21 07/03/21 Rx tablet prednisone 50 mg tablet 50 mg PO DAILY 5 Days #5 tab 07/02/21 07/03/21 Rx Patient History Medical History No significant medical problems Surgical History No history of previous surgery Social History Smoking Status: Never smoker Hx Alcohol Use: No Hx Substance Use: No Preferred Language: Lithuanian Communication Ability: Effective 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 Beliefs That Will Affect Care: None marital status: Current Living Situation: Spouse current occupational status: employed Feels Safe at Home: Yes Safety Concerns: Feels Safe At This Time Assistive Devices: Glasses and Oxygen - Continuous Assistive Devices Comment: pt has 1 contact in Review of Systems Review of Systems: All systems reviewed & are unremarkable except as noted in HPI & below Physical Exam Physical Exam: Constitutional: No acute distress HEENT: EOMI, PERRLA Respiratory system: Decreased air entry bilaterally, no wheeze, rhonchi, positiv e crackles bilaterally CVS: S1-S2 positive, no murmurs or gallops Abdomen: Soft, nontender, nondistended, positive bowel sounds x4 Extremities: +2 pulses bilaterally radialis/ dorsalis pedis, no cyanosis, no edema Neuro: Awake alert oriented x3 Psych: Normal mood and affect G/U: No Harris Skin: no rashes, warm and dry Lymphatic: no cervical or axillary lymphadenopathy Results & Data Results & Data ([facility]) Vital Signs (Past 12 Hours) Vital Signs Temp Pulse Pulse Resp BP BP Pulse Ox 07/04/21 07:57 69 28 H 93 07/04/21 07:12 36.6 C 66 20 122/50 L 90 07/04/21 06:10 78 30 H 85 L 07/04/21 04:36 61 34 H 92 07/04/21 03:08 36.9 C 78 20 115/57 L 94 07/04/21 02:03 86 07/04/21 02:00 70 26 H 92 07/04/21 01:50 36.7 C 82 25 H 113/66 88 L 07/04/21 00:55 72 18 107/66 91 07/04/21 00:27 74 18 105/58 L 91 07/03/21 23:39 68 20 105/66 96 07/03/21 22:40 81 15 94 07/03/21 22:30 81 22 111/67 95 07/03/21 22:20 75 38 H 89 L 07/03/21 22:10 71 41 H 90 07/03/21 22:00 68 22 103/67 91 07/03/21 21:50 68 22 93 07/03/21 21:40 71 22 93 07/03/21 21:34 72 22 106/53 L 93 07/03/21 21:30 69 22 93 07/03/21 21:26 70 20 101/63 93 07/03/21 21:20 70 22 101/63 95 07/03/21 21:10 84 22 90 07/03/21 21:00 78 20 88/60 L 90 07/03/21 20:50 70 20 98 07/03/21 20:40 76 20 95 07/03/21 20:30 69 20 115/65 96 07/03/21 20:20 59 L 22 96 07/03/21 20:10 64 20 95 07/03/21 20:14 07/03/21 20:14 PG Care Time/CCT Total # of Minutes Spent Total Time Spent with Patient: Total time spent is greater than 50% in coordination of care (as documented) at patient's floor/unit and/or counseling patient: Coding Level of Care Code Critical Care 1st 30-74 mins Diagnoses Acute hypoxemic respiratory failure J96.01 Bilateral pneumonia J18.9 Pneumonia due to COVID-19 virus U07.1; J12.82 Hemoptysis R04.2 Time Spent (min) 51
[2021-07-04] MEDS: CEROVITE ADV FORMULA TAB PO SCH (08:13)
[2021-07-04] MEDS: AZITHROMYCIN 250 MG TAB PO SCH (08:13)
[2021-07-04] MEDS: hydrOXYzine HCl 10 MG TAB PO PRN ×2 (08:13→17:27)
--- NOTE | 2021-07-04 08:14 | CT Scan Report ---
CT abd pelvis IV con only CLINICAL HISTORY: ABD PAIN . Covid positive. COMPARISON STUDY: No previous studies for comparison. CT DOSE: TECHNIQUE: Standard CT of the Abdomen and Pelvis was performed with IV contrast. A dose lowering gilles hnique was utilized adhering to the principles of ALARA. Contrast Volume: Optiray 320, 94 ml. The patient did not receive oral contrast. FINDINGS: Lung base: There are marked interstitial and alveolar opacities present at the lung bases representin g Covid pneumonia. Abdominal cavity: There is no evidence for abdominal mass, adenopathy or ascites. Liver: There is homogeneous attenuation of the liver parenchyma. There is no evidence for enhancing m ass lesion. Spleen: There is homogeneous attenuation of the splenic parenchyma. There is no enhancing mass lesion . Pancreas: There is homogeneous attenuation of the pancreatic parenchyma. There is no evidence for mas s lesion or peripancreatic fluid collection. Gall Bladder: The gallbladder is well distended with no evidence for intraluminal calculi, wall thick ening or pericholecystic edema. Adrenal glands: The adrenal glands are normal in size and attenuation. There is no evidence for enhan cing mass lesion. Kidneys: There is homogeneous attenuation of the renal parenchyma bilaterally. There is no evidence f or renal calculus or hydronephrosis. There is no evidence for enhancing mass. Bowel: There is evidence for small sliding-type hiatal hernia. The bowel loops are normally placed wi thin the abdomen and pelvis without evidence for dilatation or obstruction. There is mild to moderate fecal stasis without evidence for impaction or obstruction. There are no inflammatory changes presen t. There is no evidence for free air. There is a normal appendix in the right lower quadrant. Bladder: The bladder is mildly distended with no evidence for focal mass, calculus or diverticulum. : There is no evidence for pelvic mass or adenopathy. There is no evidence for pelvic ascites. Vasculature: There is no evidence for aneurysmal dilatation of the abdominal aorta. Osseous structures: There is no acute osseous pathology. IMPRESSION: 1. No acute intra-abdominal or pelvic abnormality. 2. Mild to moderate fecal stasis without evidence for impaction or obstruction. 3. Covid pneumonia. ACT 112: Negative or not required by law. Electronically signed by: Carlos Cruz M.D. 07/04/2021 8:12 AM
[2021-07-04] MEDS ORDERED: TOCILIZUMAB 400 MG, TOCILIZUMAB 200 MG in 0.9 % SODIUM CHLORIDE 70 ML IV ONE (08:15)
[2021-07-04] MEDS: BENZONATATE 100 MG CAPSULE PO SCH ×3 (08:15→19:55)
[2021-07-04] MEDS: dexAMETHasone 10 MG in SYRINGE 0 ML IV SCH (08:16)
--- NOTE | 2021-07-04 08:18 | CT Scan Report ---
CT chest diagnostic w con CLINICAL HISTORY: Increasing shortness of breath. Low oxygen saturation. Covid positive. COMPARISON STUDY: 07/02/2021 CT DOSE: 772.23 mGy.cm TECHNIQUE: Standard CT of the Chest was performed with IV contrast. A dose lowering technique was u tilized adhering to the principles of ALARA. Contrast Volume: Optiray 320, 94 ml FINDINGS: Airway: The airway is clear. No endobronchial lesion is identified. Lungs: Compared to the previous examination, there has been marked interval worsening of of interstit ial and alveolar groundglass opacities characteristic of Covid pneumonia. Pleura: There is no evidence for pleural effusion. There is no evidence for pneumothorax. Mediastinum: There is no evidence for pathologic adenopathy. The heart size is within normal limits. The thoracic aorta is within normal limits. There is no evidence for pericardial effusion. Upper abdomen: The adrenal glands are normal bilaterally. Osseous structures: There is no acute osseous pathology. IMPRESSION: Marked interval worsening of interstitial and alveolar groundglass opacities representing Covid pneumonia. ACT 112: Negative or not required by law. Electronically signed by: Carlos Cruz M.D. 07/04/2021 8:16 AM
[2021-07-04] MEDS ORDERED: DOCUSATE SODIUM 100 MG CAP PO PRN (08:20)
[2021-07-04] MEDS ORDERED: POLYETHYLENE (MIRALAX) 17 GM PACK PO PRN (08:20)
--- NOTE | 2021-07-04 08:43 | XRay Report ---
XR chest 1V portable HISTORY: Hypoxia. Pneumonia. Follow-up. COMPARISON: Chest 07/03/2021. FINDINGS: Interval progression of the bilateral airspace opacities, right greater than left. The hear t remains mildly enlarged. No pleural effusions. No pneumothorax. IMPRESSION: Interval progression of bilateral airspace opacities consistent with a worsening pneumonia. ACT 112: Negative or not required by law. Electronically signed by: Henrique Melendez M.D. 07/04/2021 8:42 AM
[2021-07-04 08:52] LABS: Basophils # (auto) 0.01 K/uL (0-0.2); Basophils % (auto) 0.1 %; Hemoglobin 14.2 g/dL (14.0-18.0); Immature Granulocytes # (auto) 0.03 K/uL (0.00-0.02); Immature Granulocytes % (auto) 0.2 %; Lymphocytes # (auto) 0.31 K/uL (1.2-3.4); Lymphocytes % (auto) 2.5 %; Mean Corpuscular Hemoglobin 31.3 pg (25-34); Mean Corpuscular Hgb Conc 34.6 g/dL (32-36); Mean Corpuscular Volume 90.5 fL (80-100); Mean Platelet Volume 10.4 fL (7.4-10.4); Monocytes # (auto) 0.69 K/uL (0.11-0.59); Monocytes % (auto) 5.5 %; Neutrophils % (auto) 91.7 %; Platelet Count 176 K/uL (130-400); RDW Coefficient of Variation 12.9 % (11.5-14.5); RDW Standard Deviation 42.9 fL (36.4-46.3); Red Blood Count 4.53 M/uL (4.7-6.1); White Blood Count 12.54 K/uL (4.8-10.8)
[2021-07-04 08:58] LABS: Base Excess ABG 0.8 mEq/L (-9-1.8); HCO3 ABG 24 mmol/L (19-24); Oxygen Saturation ABG 95.1 % (90-95); PCO2 ABG 36 mmHg (35-46); PO2 ABG 69 mmHg (80-95); pH ABG 7.45 (7.35-7.45)
[2021-07-04] MEDS ORDERED: dexAMETHasone 6 MG in SYRINGE 0 ML IV SCH (09:00)
[2021-07-04] MEDS: guaiFENesin/DEXTROM SYRUP 200MG/20MG 10ML UDC PO SCH ×4 (09:04→23:34)
[2021-07-04] MEDS: PROMETHAZINE HCL 12.5 MG in SODIUM CHLORIDE 0.9% 50 ML IV PRN (09:04)
[2021-07-04 09:06] LABS: Allen Test Pos (Pos)
--- NOTE | 2021-07-04 09:26 | Electrocardiogram Report ---
Test Reason : Blood Pressure : / mmHG Vent. Rate : 062 BPM Atrial Rate : 062 BPM P-R Int : 116 ms QRS Dur : 098 ms QT Int : 414 ms P-R-T Axes : 016 090 034 degrees QTc Int : 420 ms Normal sinus rhythm Rightward axis Borderline ECG When compared with ECG of 02-JUL-2021 11:34, No significant change was found Confirmed by Beau Knight ([id number]) on 07/04/2021 9:25:53 AM Referred By: REFERRED SELF Confirmed By:Beau Knight
[2021-07-04 09:51] LABS: Albumin Globulin Ratio 1.2 (0.9-2); Albumin Level 3.3 gm/dl (3.4-5.0); BUN Creatinine Ratio 17.9 (10-20); Bilirubin,Total 0.7 mg/dl (0.2-1.0); C Reactive Protein 14.4 mg/dl (0-0.5); Calcium 8.1 mg/dl (8.5-10.1); Creatinine Clr Calc Pharmacy 104.9 ml/min; Est GFR (African American) 119.2 ml/min; Est GFR (Non-African American) 102.8 ml/min; Globulin 2.8 gm/dl (2.5-4.0); Total Protein 6.1 gm/dl (6.0-8.3)
--- NOTE | 2021-07-04 16:34 | Hospitalist Progress Note ---
Date of Service July 04, 2021 Assessment & Plan (1) Acute hypoxemic respiratory failure: Plan: Acute respiratory failure with hypoxia Multifocal COVID pneumonia COVID Screen:Positive CT Chest:Marked interval worsening of interstitial and alveolar groundglass opacities representing Covid pneumonia. Unvaccinated State Symptoms Onset: 3 weeks ago Procalcitonin: 0.23 CRP:14.4 Sputum/Blood Cultures pending Received Tocilizumab Continue dexamethasone Also on azithromycin Appreciate pulmonology input Isolation precautions--Airborne/Contact Lasix, Nebs PRN Continue Supplemental Oxygen DVT prophylaxis: SCDs Re: Hemoptysis Antitussives as needed Constipation Continue bowel regimen Advance diet as tolerated Transaminitis Secondary to CVOID Monitor Steroid-induced hyperglycemia Prediabetes HbA1C:5.7 DVT Px:SCDs Re: Hemoptysis Code Status Full code Admission and Anticipated Discharge Date Admission Date: July 03, 2021 Subjective Patient is seen and examined at bedside States feeling better when compared to the time of admission Dyspnea improved Currently on 30 l, 70% FiO2 high flow oxygen Diuresed well earlier today Reports nausea but no vomiting Also has cough Offers no other complaints Review of Systems Review of Systems: All systems reviewed & are unremarkable except as noted in Subjective Physical Exam Physical Exam: Physical Exam: Vitals signs as noted above General Appearance:Moderately built and nourished, no apparent distress Head: normocephalic, Atraumatic Eyes: normal inspection, EOMI Neck: supple, Trachea midline Respiratory/Chest: Decreased breath sounds, CTA, No accessory muscle use Cardiovascular: S1, S2, No murmur Abdomen/GI:Soft, Non tender, Bowel sounds present Extremities/Musculoskeletal:normal inspection, no edema Neurologic/Psych:AAOX3, grossly no focal neurological deficits Skin: normal color, warm Results & Data Results & Data ([facility]) Vital Signs (Past 12 Hours) Vital Signs Temp Pulse Pulse Resp BP Pulse Ox 07/04/21 14:58 79 24 92 07/04/21 10:49 59 L 22 93 07/04/21 08:31 78 42 H 90 07/04/21 07:57 69 28 H 93 07/04/21 07:12 36.6 C 66 20 122/50 L 90 07/04/21 06:10 78 30 H 85 L 07/04/21 04:36 61 34 H 92 Laboratory Results Short CBC 07/03/21 07/04/21 Range/Units 20:14 08:21 WBC 11.86 H 12.54 H (4.8-10.8) K/uL Hgb 14.2 14.2 (14.0-18.0) g/dL Hct 41.1 L 41.0 L (42-52) % Plt Count 171 176 (130-400) K/uL BMP 07/03/21 07/04/21 20:14 08:21 Sodium 137 141 Potassium 3.9 4.0 Chloride 105 108 H Carbon Dioxide 24 24 BUN 19 15 Creatinine 1.10 0.84 Glucose 174 H 162 H Calcium 8.6 8.1 L Cardiac Enzymes 07/03/21 Range/Units 20:14 Troponin I 0.03 (0-0.04) ng/ml Liver Function 07/03/21 07/04/21 Range/Units 20:14 08:21 Total Bilirubin 0.7 0.7 (0.2-1.0) mg/dl AST 51 H 47 H (13-39) U/L ALT 83 H 76 H (7-52) U/L Alkaline Phosphatase 127 H 113 H (34-104) U/L Albumin 3.5 3.3 L (3.4-5.0) gm/dl
[2021-07-05] MEDS: hydrOXYzine HCl 10 MG TAB PO PRN ×4 (03:19→22:15)
[2021-07-05] MEDS: ACETAMINOPHEN 325 MG TAB PO PRN (06:15)
[2021-07-05] MEDS: ONDANSETRON INJ 2 MG/ML 2 ML VIAL IV PRN ×3 (06:16→21:46)
[2021-07-05] MEDS: guaiFENesin/DEXTROM SYRUP 200MG/20MG 10ML UDC PO SCH ×3 (06:16→18:19)
[2021-07-05 07:05] LABS: Basophils # (auto) 0.01 K/uL (0-0.2); Basophils % (auto) 0.1 %; Hematocrit (blood only) 40.9 % (42-52); Hemoglobin 14.2 g/dL (14.0-18.0); Immature Granulocytes # (auto) 0.05 K/uL (0.00-0.02); Immature Granulocytes % (auto) 0.5 %; Lymphocytes # (auto) 0.73 K/uL (1.2-3.4); Lymphocytes % (auto) 7.1 %; Mean Corpuscular Hemoglobin 31.8 pg (25-34); Mean Corpuscular Hgb Conc 34.7 g/dL (32-36); Mean Corpuscular Volume 91.5 fL (80-100); Mean Platelet Volume 10.3 fL (7.4-10.4); Monocytes # (auto) 0.37 K/uL (0.11-0.59); Monocytes % (auto) 3.6 %; Neutrophils # (auto) 9.19 K/uL (1.4-6.5); Neutrophils % (auto) 88.7 %; Platelet Count 198 K/uL (130-400); RDW Coefficient of Variation 12.8 % (11.5-14.5); Red Blood Count 4.47 M/uL (4.7-6.1); White Blood Count 10.35 K/uL (4.8-10.8)
[2021-07-05 08:12] LABS: Albumin Globulin Ratio 1.2 (0.9-2); Albumin Level 3.1 gm/dl (3.4-5.0); BUN Creatinine Ratio 26.3 (10-20); Bilirubin,Total 0.7 mg/dl (0.2-1.0); C Reactive Protein 11.66 mg/dl (0-0.5); Calcium 8.4 mg/dl (8.5-10.1); Creatinine Clr Calc Pharmacy 109.6 ml/min; Est GFR (African American) 121.6 ml/min; Est GFR (Non-African American) 104.9 ml/min; Globulin 2.6 gm/dl (2.5-4.0); Magnesium 2.2 mg/dl (1.7-2.4); Potassium 3.7 mmol/L (3.5-5.1); Total Protein 5.7 gm/dl (6.0-8.3)
--- NOTE | 2021-07-05 08:36 | XRay Report ---
XR chest 1V portable CLINICAL HISTORY: covid. Follow-up bilateral airspace opacities COMPARISON STUDY: 07/04/2021 TECHNIQUE: 1 view of the chest FINDINGS: Single frontal view of the chest demonstrates the cardiomediastinal silhouette to be within normal li mits. Compared to the previous examination, bilateral interstitial and alveolar opacities are again s een and accounting for technique are not significantly changed. No new confluent alveolar opacities o r air bronchograms are seen. There is no evidence for pleural effusion. There is no evidence for vasc ular congestion. There is no acute osseous pathology. IMPRESSION: No significant interval change in bilateral interstitial and alveolar opacities, right gr eater than left. ACT 112: Negative or not required by law. Electronically signed by: Carlos Cruz M.D. 07/05/2021 8:35 AM
[2021-07-05] MEDS ORDERED: dexAMETHasone 6 MG in SYRINGE 0 ML IV SCH (09:00)
[2021-07-05] MEDS: AZITHROMYCIN 250 MG TAB PO SCH (09:39)
[2021-07-05] MEDS: PANTOprazole 40 MG in SYRINGE 0 ML IV SCH (09:39)
[2021-07-05] MEDS: dexAMETHasone 10 MG in SYRINGE 0 ML IV SCH (09:39)
[2021-07-05] MEDS: CEROVITE ADV FORMULA TAB PO SCH (09:39)
[2021-07-05] MEDS: ENOXAPARIN INJ 40 MG/0.4 ML SYR SQ SCH (09:39)
[2021-07-05] MEDS: BENZONATATE 100 MG CAPSULE PO SCH ×3 (09:42→20:00)
--- NOTE | 2021-07-05 13:06 | Pulmonology Progress Note ---
Date of Service July 05, 2021 Assessment & Plan (1) Acute hypoxemic respiratory failure: (2) Bilateral pneumonia: (3) Pneumonia due to COVID-19 virus: (4) Hemoptysis: Plan: CT chest 07/03/2021 personally reviewed: Diffuse alveolar opacities appreciated bilaterally more on the right side Mild mediastinal lymphadenopathy Significantly worsened compared to the CT chest done on 07/02/2021 --Acute hypoxic respiratory failure Secondary to multilobar COVID-19 pneumonia COVID-19 PCR positive 07/03/2021 CRP 13.36 Procalcitonin 0.23 Continue with O2 supplementation to keep oxygen saturation between 90-92%. Awake proning will be helpful Continue with incentive spirometry No flutter valve use secondary to hemoptysis Recommend patient to be kept euvolemic to negative balance --Hemoptysis Likely from chronic coughing and pneumonia Try to suppress the cough as much as possible Plan: Patient's respiratory rate has mellowed down compared to yesterday He still requiring high flow Given the patient is having hemoptysis he is very high risk for DVT as well as PE given that he has COVID-19 pneumonia and he got Tocilizumab I will start the patient on Lovenox. Hold flutter valve. Continue with incentive spirometry Advised the patient to keep on moving his leg even while he is on his bed CPAP/BiPAP as needed Patient is still critical and might need intubated in the next 24 hours. I have personally spent 35 minutes of critical care time in the direct management of this patient. This is a life/limb threatening event. This includes time spent evaluating patient, direct bedside care, chart review, placing orders, interpretation of diagnostic studies, discussion with consultants, patient, and family members, as well as other required patient management activities. This time is exclusive of all separately billable procedures, and teaching time and separate from and in addition to any other critical care service time. Please note the above document was generated using voice recognition software. It may contain grammatical, syntax or spelling errors. Admission and Anticipated Discharge Date Admission Date: July 03, 2021 Subjective Patient seen and examined at bedside. No acute distress. Patient was on 100% FiO2, 40 L at the time of examination He was in right decubitus position Saturating 92% but when he woke up and talk to me it went up to 98% I was able to go down on FiO2 to 80% He did complain of mild nausea. Poor appetite. No vomiting. Mild headache Has been afebrile Review of Systems Review of Systems: All systems reviewed & are unremarkable except as noted in Subjective Physical Exam Physical Exam: Constitutional: No acute distress HEENT: EOMI, PERRLA Respiratory system: Decreased air entry bilaterally, no wheeze, rhonchi, positive crackles bilaterally CVS: S1-S2 positive, no murmurs or gallops Abdomen: Soft, nontender, nondistended, positive bowel sounds x4 Extremities: +2 pulses bilaterally radialis/ dorsalis pedis, no cyanosis, no edema Neuro: Awake alert oriented x3 Psych: Normal mood and affect G/U: No Harris Skin: no rashes, warm and dry Lymphatic: no cervical or axillary lymphadenopathy Results & Data Results & Data ([facility]) Vital Signs (Past 12 Hours) Vital Signs Temp Pulse Resp BP Pulse Ox Pulse Ox 07/05/21 11:34 54 L 18 91 07/05/21 11:22 36.8 C 57 L 20 104/52 L 92 07/05/21 07:45 60 20 85 L 07/05/21 07:24 37.0 C 65 20 99/56 L 88 L 07/05/21 03:55 67 19 90 07/05/21 02:03 96 Laboratory Results 07/05/21 06:37 07/05/21 06:37 PG Care Time/CCT Total # of Minutes Spent Total Time Spent with Patient: Total time spent is greater than 50% in coordination of care (as documented) at patient's floor/unit and/or counseling patient: Coding Level of Care Code Critical Care 1st 30-74 mins Diagnoses Acute hypoxemic respiratory failure J96.01 Bilateral pneumonia J18.9 Pneumonia due to COVID-19 virus U07.1; J12.82 Hemoptysis R04.2 Time Spent (min) 35
--- NOTE | 2021-07-05 14:13 | Hospitalist Progress Note ---
Date of Service July 05, 2021 Assessment & Plan (1) Acute hypoxemic respiratory failure: Plan: Acute respiratory failure with hypoxia Multifocal pneumonia due to COVID-19 virus COVID Screen:Positive CT Chest:Marked interval worsening of interstitial and alveolar groundglass opacities representing Covid pneumonia. Unvaccinated State Symptoms Onset: 3 weeks ago Procalcitonin: 0.23,CRP:14.4 Sputum culture is growing moderate normal ethel and blood cultures are negative Received Tocilizumab,Continue dexamethasone Also on azithromycin Appreciate pulmonology input and recommendation Lasix, Nebs PRN Continue Supplemental Oxygen Antitussives as needed Remains stable clinically Constipation Continue bowel regimen Advance diet as tolerated Transaminitis Secondary to CVOID Monitor -remains stable Steroid-induced hyperglycemia Prediabetes HbA1C:5.7 Anxiety/depression Has been on Lexapro at home Holding Lexapro to avoid any drug interaction and QT prolongation DVT Px:SCDs Re: Hemoptysis Code Status Full code Admission and Anticipated Discharge Date Admission Date: July 03, 2021 Subjective 07/05/2021 The patient was seen and examined in telemetry unit and in the COVID room He has been feeling a little better Still requiring high flow oxygen to maintain saturation at a rate of 40 L with 80% FiO2 Denies any fever and/or chills, any nausea and/or vomiting Review of Systems Review of Systems: All systems reviewed and are unremarkable except as noted below Respiratory: Shortness of breath at rest Neurologic: Alert, awake and oriented x3. Generally very weak and lethargic Physical Exam Physical Exam: Lying in bed in prone position Constitutional: well developed, well nourished, + ill appearing and + obese Eyes: PERRL, conjunctivae normal, anicteric sclerae ENMT: external ear and nose normal, oropharynx normal Neck: trachea midline, no thyromegaly Respiratory: no respiratory distress Auscultation: + diminished lung sounds Cardiovascular: Rate/Rhythm: regular rate and regular rhythm; not tachycardic Heart Sounds: normal S1 and normal S2; no murmur Extremities: + edema (Trace edema bilaterally) Gastrointestinal (Abdomen): Inspection/Auscultation: abdomen not distended Percussion/Palpation: abdomen soft; abdomen nontender Musculoskeletal: No acute arthritis in any joint Neurologic: Alert, awake and oriented x3. Generally very weak and lethargic Results & Data Results & Data ([place]) Vital Signs (Past 12 Hours) Vital Signs Temp Pulse Resp BP Pulse Ox 07/05/21 11:34 54 L 18 91 07/05/21 11:22 36.8 C 57 L 20 104/52 L 92 07/05/21 07:45 60 20 85 L 07/05/21 07:24 37.0 C 65 20 99/56 L 88 L 07/05/21 03:55 67 19 90 Laboratory Results Short CBC 07/05/21 Range/Units 06:37 WBC 10.35 (4.8-10.8) K/uL Hgb 14.2 (14.0-18.0) g/dL Hct 40.9 L (42-52) % Plt Count 198 (130-400) K/uL BMP 07/05/21 06:37 Sodium 141 Potassium 3.7 Chloride 105 Carbon Dioxide 28 BUN 21 Creatinine 0.80 Glucose 123 H Calcium 8.4 L Liver Function 07/05/21 Range/Units 06:37 Total Bilirubin 0.7 (0.2-1.0) mg/dl AST 84 H (13-39) U/L ALT 102 H (7-52) U/L Alkaline Phosphatase 99 (34-104) U/L Albumin 3.1 L (3.4-5.0) gm/dl Medications Administered Current Inpatient Medications Acetaminophen (Acetaminophen 325 Mg Tab) 325 mg PO Q6H PRN PRN Reason: Mild Pain Stop: 08/03/21 02:02 Last Admin: 07/05/21 06:15 Dose: 325 mg Documented by: Azithromycin (Azithromycin 250 Mg Tab) 250 mg PO QAM [facility] Stop: 07/08/21 08:59 Last Admin: 07/05/21 09:39 Dose: 250 mg Documented by: Benzonatate (Benzonatate 100 Mg Capsule) 100 mg PO TID [facility] Stop: 08/03/21 08:59 Last Admin: 07/05/21 09:42 Dose: 100 mg Documented by: Dextromethorphan Polymer Complex (Dextromethorphan Polymr Complx 30 Mg/5 Ml Udp) 30 mg PO Q6H PRN PRN Reason: Cough Stop: 08/03/21 07:42 Docusate Sodium (Docusate Sodium 100 Mg Cap) 100 mg PO BID PRN PRN Reason: Constipation Stop: 08/03/21 08:59 Enoxaparin Sodium (Enoxaparin Inj 40 Mg/0.4 Ml Syr) 40 mg SQ QAM [facility] Stop: 08/04/21 08:59 Last Admin: 07/05/21 09:39 Dose: 40 mg Documented by: Guaifenesin/Dextromethorphan (Guaifenesin/Dextrom Syrup 200mg/20mg 10ml Udc) 10 ml PO Q6 [facility] Stop: 08/03/21 08:29 Last Admin: 07/05/21 13:23 Dose: 10 ml Documented by: Hydroxyzine HCl (Hydroxyzine Hcl 10 Mg Tab) 10 mg PO QID PRN PRN Reason: anxiety Stop: 08/03/21 02:02 Last Admin: 07/05/21 10:52 Dose: 10 mg Documented by: Promethazine HCl 12.5 mg/ (Sodium Chloride) 50.5 mls @ 202 mls/hr IV Q6H PRN PRN Reason: Nausea And Vomiting Stop: 08/03/21 02:02 Last Infusion: 07/04/21 09:22 Dose: Infused Documented by: Dexamethasone 10 mg/ Syringe 2.5 mls @ 1 mls/min IV DAILY [facility] Stop: 08/03/21 08:59 Last Admin: 07/05/21 09:39 Dose: 1 mls/min Documented by: Pantoprazole Sodium 40 mg/ (Syringe) 10 mls @ 5 mls/min IV DAILY@1100 [facility] Stop: 08/04/21 10:59 Last Admin: 07/05/21 09:39 Dose: 5 mls/min Documented by: Ipratropium [place] (Ipratropium [place] Neb Soln 0.02% 2.5 Ml Vial) 0.5 mg INH Q4H PRN PRN Reason: SOB, WHEEZE Stop: 08/03/21 02:42 Last Admin: 07/04/21 06:09 Dose: 0.5 mg Documented by: Levalbuterol HCl (Levalbuterol 1.25mg/0.5ml Neb) 1.25 mg INH Q4H PRN PRN Reason: SOB, WHEEZE Stop: 08/03/21 02:02 Last Admin: 07/04/21 06:09 Dose: 1.25 mg Documented by: Multivitamins/Minerals (Cerovite Adv Formula Tab) 1 tab PO DAILY [facility] Stop: 08/03/21 08:59 Last Admin: 07/05/21 09:39 Dose: 1 tab Documented by: Ondansetron HCl (Ondansetron Inj 2 Mg/Ml 2 Ml Vial) 4 mg IV Q4H PRN PRN Reason: Nausea Stop: 08/04/21 06:07 Last Admin: 07/05/21 06:16 Dose: 4 mg Documented by: Polyethylene Glycol (Polyethylene (Miralax) 17 Gm Pack) 17 gm PO DAILY PRN PRN Reason: Constipation Stop: 08/03/21 08:19
[2021-07-06] MEDS: guaiFENesin/DEXTROM SYRUP 200MG/20MG 10ML UDC PO SCH ×4 (00:30→17:16)
[2021-07-06] MEDS: hydrOXYzine HCl 10 MG TAB PO PRN ×4 (04:59→21:51)
[2021-07-06] MEDS: ONDANSETRON INJ 2 MG/ML 2 ML VIAL IV PRN ×3 (05:04→23:53)
[2021-07-06 07:21] LABS: Basophils # (auto) 0.01 K/uL (0-0.2); Basophils % (auto) 0.2 %; Eosinophils # (auto) 0.04 K/uL (0-0.5); Eosinophils % (auto) 0.7 %; Hematocrit (blood only) 40.8 % (42-52); Hemoglobin 13.8 g/dL (14.0-18.0); Immature Granulocytes # (auto) 0.07 K/uL (0.00-0.02); Immature Granulocytes % (auto) 1.2 %; Lymphocytes # (auto) 0.77 K/uL (1.2-3.4); Lymphocytes % (auto) 12.8 %; Mean Corpuscular Hemoglobin 30.9 pg (25-34); Mean Corpuscular Hgb Conc 33.8 g/dL (32-36); Mean Corpuscular Volume 91.5 fL (80-100); Mean Platelet Volume 10.5 fL (7.4-10.4); Monocytes # (auto) 0.16 K/uL (0.11-0.59); Monocytes % (auto) 2.7 %; Neutrophils # (auto) 4.96 K/uL (1.4-6.5); Neutrophils % (auto) 82.4 %; Platelet Count 185 K/uL (130-400); RDW Coefficient of Variation 12.6 % (11.5-14.5); RDW Standard Deviation 42.7 fL (36.4-46.3); Red Blood Count 4.46 M/uL (4.7-6.1); White Blood Count 6.01 K/uL (4.8-10.8)
[2021-07-06 07:50] LABS: Calcium 8.2 mg/dl (8.5-10.1); Creatinine Clr Calc Pharmacy 107.5 ml/min; Est GFR (African American) 124.8 ml/min; Est GFR (Non-African American) 107.7 ml/min; Magnesium 2.3 mg/dl (1.7-2.4); Potassium 3.9 mmol/L (3.5-5.1)
[2021-07-06] MEDS: CEROVITE ADV FORMULA TAB PO SCH (08:52)
[2021-07-06] MEDS: dexAMETHasone 10 MG in SYRINGE 0 ML IV SCH (08:52)
[2021-07-06] MEDS: AZITHROMYCIN 250 MG TAB PO SCH (08:52)
[2021-07-06] MEDS: ENOXAPARIN INJ 40 MG/0.4 ML SYR SQ SCH (08:52)
[2021-07-06] MEDS: BENZONATATE 100 MG CAPSULE PO SCH ×3 (08:54→21:52)
[2021-07-06] MEDS: PANTOprazole 40 MG in SYRINGE 0 ML IV SCH (11:31)
[2021-07-06] MEDS ORDERED: FUROSEMIDE 40 MG/4 ML VIAL IV ONE (11:57)
--- NOTE | 2021-07-06 12:24 | Hospitalist Progress Note ---
Date of Service July 06, 2021 Assessment & Plan (1) Acute hypoxemic respiratory failure: Plan: Acute respiratory failure with hypoxia Multifocal pneumonia due to COVID-19 virus COVID Screen:Positive CT Chest:Marked interval worsening of interstitial and alveolar groundglass opacities representing Covid pneumonia. Unvaccinated State Symptoms Onset: 3 weeks ago Procalcitonin: 0.23,CRP:14.4 Sputum culture is growing moderate normal ethel and blood cultures are negative Received Tocilizumab,Continue dexamethasone Also on azithromycin Appreciate pulmonology input and recommendation Feels better but he still requires high flow oxygen to maintain saturation Remains in positive balance cannot keep Lasix regularly due to low blood pressure We will continue current management and Lasix will be given when the blood pressure was up systolic more than 100 And need to be intubated if the condition deteriorates Constipation Continue bowel regimen Advance diet as tolerated Transaminitis Secondary to CVOID Monitor -remains stable Steroid-induced hyperglycemia Prediabetes HbA1C:5.7 Anxiety/depression Has been on Lexapro at home Holding Lexapro to avoid any drug interaction and QT prolongation DVT Px:SCDs Re: Hemoptysis Code Status Full code Admission and Anticipated Discharge Date Admission Date: July 03, 2021 Subjective 07/05/2021 The patient was seen and examined in telemetry unit and in the COVID room He has been feeling a little better Still requiring high flow oxygen to maintain saturation at a rate of 40 L with 80% FiO2 Denies any fever and/or chills, any nausea and/or vomiting 07/06/2021 The patient was seen and examined in telemetry unit and in the COVID room He has been feeling better but he still requires 40 L at 70% FiO2 to maintain saturation Denies any significant cough and shortness of breath at rest Review of Systems Review of Systems: All systems reviewed and are unremarkable except as noted below Respiratory: Minimal shortness of breath at rest Neurologic: Alert, awake and oriented x3. Generally very weak and lethargic Physical Exam Physical Exam: Lying in bed in prone position Constitutional: well developed, well nourished, + ill appearing and + obese Eyes: PERRL, conjunctivae normal, anicteric sclerae ENMT: external ear and nose normal, oropharynx normal Neck: trachea midline, no thyromegaly Respiratory: no respiratory distress Auscultation: + diminished lung sounds Cardiovascular: Rate/Rhythm: regular rate and regular rhythm; not tachycardic Heart Sounds: normal S1 and normal S2; no murmur Extremities: + edema (Trace edema bilaterally) Gastrointestinal (Abdomen): Inspection/Auscultation: abdomen not distended Percussion/Palpation: abdomen soft; abdomen nontender Musculoskeletal: No acute arthritis in any joint Neurologic: Alert, awake and oriented x3. Generally weak and lethargic Results & Data Results & Data ([facility]) Vital Signs (Past 12 Hours) Vital Signs Temp Pulse Pulse Resp BP Pulse Ox 07/06/21 07:30 52 L 22 92 07/06/21 07:14 36.8 C 56 L 18 89/49 L 95 07/06/21 04:00 36.9 C 56 L 16 101/54 L 93 07/06/21 03:15 49 L 28 H 90 07/06/21 00:24 36.9 C 52 L 16 111/62 96 Laboratory Results Short CBC 07/06/21 Range/Units 06:37 WBC 6.01 (4.8-10.8) K/uL Hgb 13.8 L (14.0-18.0) g/dL Hct 40.8 L (42-52) % Plt Count 185 (130-400) K/uL BMP 07/06/21 06:37 Sodium 140 Potassium 3.9 Chloride 105 Carbon Dioxide 29 BUN 24 H Creatinine 0.75 Glucose 117 H Calcium 8.2 L Medications Administered Current Inpatient Medications Acetaminophen (Acetaminophen 325 Mg Tab) 325 mg PO Q6H PRN PRN Reason: Mild Pain Stop: 08/03/21 02:02 Last Admin: 07/05/21 06:15 Dose: 325 mg Documented by: Azithromycin (Azithromycin 250 Mg Tab) 250 mg PO QAM [facility] Stop: 07/08/21 08:59 Last Admin: 07/06/21 08:52 Dose: 250 mg Documented by: Benzonatate (Benzonatate 100 Mg Capsule) 100 mg PO TID [facility] Stop: 08/03/21 08:59 Last Admin: 07/06/21 08:54 Dose: 100 mg Documented by: Dextromethorphan Polymer Complex (Dextromethorphan Polymr Complx 30 Mg/5 Ml Udp) 30 mg PO Q6H PRN PRN Reason: Cough Stop: 08/03/21 07:42 Docusate Sodium (Docusate Sodium 100 Mg Cap) 100 mg PO BID PRN PRN Reason: Constipation Stop: 08/03/21 08:59 Enoxaparin Sodium (Enoxaparin Inj 40 Mg/0.4 Ml Syr) 40 mg SQ QAM [facility] Stop: 08/04/21 08:59 Last Admin: 07/06/21 08:52 Dose: 40 mg Documented by: Guaifenesin/Dextromethorphan (Guaifenesin/Dextrom Syrup 200mg/20mg 10ml Udc) 10 ml PO Q6 [facility] Stop: 08/03/21 08:29 Last Admin: 07/06/21 11:41 Dose: 10 ml Documented by: Hydroxyzine HCl (Hydroxyzine Hcl 10 Mg Tab) 10 mg PO QID PRN PRN Reason: anxiety Stop: 08/03/21 02:02 Last Admin: 07/06/21 11:31 Dose: 10 mg Documented by: Promethazine HCl 12.5 mg/ (Sodium Chloride) 50.5 mls @ 202 mls/hr IV Q6H PRN PRN Reason: Nausea And Vomiting Stop: 08/03/21 02:02 Last Infusion: 07/04/21 09:22 Dose: Infused Documented by: Dexamethasone 10 mg/ Syringe 2.5 mls @ 1 mls/min IV DAILY [facility] Stop: 08/03/21 08:59 Last Admin: 07/06/21 08:52 Dose: 1 mls/min Documented by: Pantoprazole Sodium 40 mg/ (Syringe) 10 mls @ 5 mls/min IV DAILY@1100 [facility] Stop: 08/04/21 10:59 Last Admin: 07/06/21 11:31 Dose: 5 mls/min Documented by: Ipratropium [place] (Ipratropium [place] Neb Soln 0.02% 2.5 Ml Vial) 0.5 mg INH Q4H PRN PRN Reason: SOB, WHEEZE Stop: 08/03/21 02:42 Last Admin: 07/04/21 06:09 Dose: 0.5 mg Documented by: Levalbuterol HCl (Levalbuterol 1.25mg/0.5ml Neb) 1.25 mg INH Q4H PRN PRN Reason: SOB, WHEEZE Stop: 08/03/21 02:02 Last Admin: 07/04/21 06:09 Dose: 1.25 mg Documented by: Multivitamins/Minerals (Cerovite Adv Formula Tab) 1 tab PO DAILY [facility] Stop: 08/03/21 08:59 Last Admin: 07/06/21 08:52 Dose: 1 tab Documented by: Ondansetron HCl (Ondansetron Inj 2 Mg/Ml 2 Ml Vial) 4 mg IV Q4H PRN PRN Reason: Nausea Stop: 08/04/21 06:07 Last Admin: 07/06/21 05:04 Dose: 4 mg Documented by: Polyethylene Glycol (Polyethylene (Miralax) 17 Gm Pack) 17 gm PO DAILY PRN PRN Reason: Constipation Stop: 08/03/21 08:19
--- NOTE | 2021-07-06 13:41 | Pulmonology Progress Note ---
Date of Service July 06, 2021 Assessment & Plan (1) Acute hypoxemic respiratory failure: (2) Bilateral pneumonia: (3) Pneumonia due to COVID-19 virus: (4) Hemoptysis: Plan: CT chest 07/03/2021 personally reviewed: Diffuse alveolar opacities appreciated bilaterally more on the right side Mild mediastinal lymphadenopathy Significantly worsened compared to the CT chest done on 07/02/2021 --Acute hypoxic respiratory failure Secondary to multilobar COVID-19 pneumonia COVID-19 PCR positive 07/03/2021 CRP 13.36 Procalcitonin 0.23 Continue with O2 supplementation to keep oxygen saturation between 90-92%. Awake proning will be helpful Continue with incentive spirometry No flutter valve use secondary to hemoptysis Recommend patient to be kept euvolemic to negative balance --Hemoptysis Likely from chronic coughing and pneumonia Try to suppress the cough as much as possible Plan: In/out: +310, urine output 500 continue with the current management I personally showed the patient how to use incentive spirometry. Patient has been getting hydroxyzine for his anxiety. He has not been using CPAP. If there is any worsening then CPAP/BiPAP would be the next day. Case was discussed with ADAM simmons Please note the above document was generated using voice recognition software. It may contain grammatical, syntax or spelling errors.Any formal questions or concerns about the content, text or information contained within the body of this dictation should be directly addressed to the provider for clarification. Admission and Anticipated Discharge Date Admission Date: July 03, 2021 Subjective Patient was saturating 91-92% on 40 L, 75% of the time of examination he stated that he is feeling the same. There is no worsening in his breathing he is coughing but not bringing up any more blood denies any chest pain occasional nausea but no vomiting poor appetite Review of Systems Review of Systems: All systems reviewed & are unremarkable except as noted in Subjective Physical Exam Physical Exam: Constitutional: No acute distress HEENT: EOMI, PERRLA Respiratory system: Decreased air entry bilaterally, no wheeze, rhonchi, positive crackles bilaterally CVS: S1-S2 positive, no murmurs or gallops Abdomen: Soft, nontender, nondistended, positive bowel sounds x4 Extremities: +2 pulses bilaterally radialis/ dorsalis pedis, no cyanosis, no edema Neuro: Awake alert oriented x3 Psych: Normal mood and affect G/U: No Harris Skin: no rashes, warm and dry Lymphatic: no cervical or axillary lymphadenopathy Results & Data Results & Data ([facility]) Vital Signs (Past 12 Hours) Vital Signs Temp Pulse Pulse Resp BP BP Pulse Ox 07/06/21 13:14 66 102/62 07/06/21 11:45 60 20 92 07/06/21 11:39 36.9 C 61 22 105/66 90 07/06/21 07:30 52 L 22 92 07/06/21 07:14 36.8 C 56 L 18 89/49 L 95 07/06/21 04:00 36.9 C 56 L 16 101/54 L 93 07/06/21 03:15 49 L 28 H 90 Laboratory Results 07/06/21 06:37 07/06/21 06:37 PG Care Time/CCT Total # of Minutes Spent Total Time Spent with Patient: Total time spent is greater than 50% in coordination of care (as documented) at patient's floor/unit and/or counseling patient: Coding Level of Care Code 37053 Subseq Hosp Care Lvl 3 Diagnoses Acute hypoxemic respiratory failure J96.01 Bilateral pneumonia J18.9 Pneumonia due to COVID-19 virus U07.1; J12.82 Hemoptysis R04.2
[2021-07-06] MEDS: PROMETHAZINE HCL 12.5 MG in SODIUM CHLORIDE 0.9% 50 ML IV PRN (19:12)
[2021-07-07] MEDS: guaiFENesin/DEXTROM SYRUP 200MG/20MG 10ML UDC PO SCH ×4 (00:15→17:36)
[2021-07-07] MEDS: ACETAMINOPHEN 325 MG TAB PO PRN (00:16)
[2021-07-07] MEDS: LORazepam 0.25 MG/0.5 ML VIAL IV STA ×2 (03:37→03:43)
[2021-07-07] MEDS: CEROVITE ADV FORMULA TAB PO SCH (08:55)
[2021-07-07] MEDS: AZITHROMYCIN 250 MG TAB PO SCH (08:55)
[2021-07-07] MEDS: ENOXAPARIN INJ 40 MG/0.4 ML SYR SQ SCH (08:55)
[2021-07-07] MEDS: dexAMETHasone 10 MG in SYRINGE 0 ML IV SCH (08:56)
[2021-07-07] MEDS: BENZONATATE 100 MG CAPSULE PO SCH ×3 (09:01→19:52)
[2021-07-07] MEDS: hydrOXYzine HCl 10 MG TAB PO PRN ×2 (10:00→18:18)
--- NOTE | 2021-07-07 12:03 | Pulmonology Progress Note ---
Date of Service July 07, 2021 Assessment & Plan (1) Acute hypoxemic respiratory failure: (2) Bilateral pneumonia: (3) Pneumonia due to COVID-19 virus: (4) Hemoptysis: Plan: CT chest 07/03/2021 personally reviewed: Diffuse alveolar opacities appreciated bilaterally more on the right side Mild mediastinal lymphadenopathy Significantly worsened compared to the CT chest done on 07/02/2021 --Acute hypoxic respiratory failure Secondary to multilobar COVID-19 pneumonia COVID-19 PCR positive 07/03/2021 CRP 13.36 Procalcitonin 0.23 S/p Tocilizumab 07/04/2021 Continue with O2 supplementation to keep oxygen saturation between 90-92%. Awake proning will be helpful Continue with incentive spirometry No flutter valve use secondary to hemoptysis Recommend patient to be kept euvolemic to negative balance --Hemoptysis Likely from chronic coughing and pneumonia Try to suppress the cough as much as possible Plan: In/out: -1.3 L, urine output 2000 Continue with high flow. Unfortunately patient is very claustrophobic and cannot tolerate CPAP/BiPAP I do think he will benefit from CPAP/BiPAP on an intermittent basis. Complete the course of azithromycin for 5 days. Continue with guaifenesin DM [id number] Case discussed with RN Please note the above document was generated using voice recognition software. It may contain grammatical, syntax or spelling errors.Any formal questions or concerns about the content, text or information contained within the body of this dictation should be directly addressed to the provider for clarification. Admission and Anticipated Discharge Date Admission Date: July 03, 2021 Subjective Patient seen and examined at bedside. No acute distress, Patient was laying on his right side. He was saturating 93% on 6 L, percent FiO2 I was able to go down to 90%. Appetite has been poor. Does complain of mild nausea but no vomiting Patient is anxious. I did encourage him to be optimistic and do what we recommend him to do Review of Systems Review of Systems: All systems reviewed & are unremarkable except as noted in Subjective Physical Exam Physical Exam: Constitutional: No acute distress HEENT: EOMI, PERRLA Respiratory system: Decreased air entry bilaterally, no wheeze, rhonchi, positive crackles bilaterally CVS: S1-S2 positive, no murmurs or gallops Abdomen: Soft, nontender, nondistended, positive bowel sounds x4 Extremities: +2 pulses bilaterally radialis/ dorsalis pedis, no cyanosis, no edema Neuro: Awake alert oriented x3 Psych: Normal mood and affect G/U: No Harris Skin: no rashes, warm and dry Lymphatic: no cervical or axillary lymphadenopathy Results & Data Results & Data ([facility]) Vital Signs (Past 12 Hours) Vital Signs Temp Pulse Resp BP BP Pulse Ox 07/07/21 11:26 37.4 C 58 L 24 101/55 L 90 07/07/21 11:23 62 26 H 88 L 07/07/21 07:50 79 20 90 07/07/21 07:49 37.2 C 73 28 H 89/56 L 90 07/07/21 03:38 37.2 C 58 L 24 94/60 L 93 07/07/21 03:20 64 22 90 07/07/21 00:30 93 Laboratory Results 07/06/21 06:37 07/06/21 06:37 PG Care Time/CCT Total # of Minutes Spent Total Time Spent with Patient: Total time spent is greater than 50% in coordination of care (as documented) at patient's floor/unit and/or counseling patient: Coding Level of Care Code 07103 Subseq Hosp Care Lvl 3 Diagnoses Acute hypoxemic respiratory failure J96.01 Bilateral pneumonia J18.9 Pneumonia due to COVID-19 virus U07.1; J12.82 Hemoptysis R04.2
[2021-07-07] MEDS: PANTOprazole 40 MG in SYRINGE 0 ML IV SCH (12:36)
[2021-07-07] MEDS ORDERED: FUROSEMIDE 40 MG/4 ML VIAL IV ONE (14:57)
--- NOTE | 2021-07-07 17:12 | Hospitalist Progress Note ---
Date of Service July 07, 2021 Assessment & Plan (1) Acute hypoxemic respiratory failure: Plan: Acute respiratory failure with hypoxia Multifocal pneumonia due to COVID-19 virus COVID Screen:Positive CT Chest:Marked interval worsening of interstitial and alveolar groundglass opacities representing Covid pneumonia. Unvaccinated [place] Symptoms Onset: 3 weeks ago Procalcitonin: 0.23,CRP:14.4 Sputum culture is growing moderate normal ethel and blood cultures are negative Received Tocilizumab,Continue dexamethasone Also on azithromycin Appreciate pulmonology input and recommendation Feels better but he still requires high flow oxygen to maintain saturation Remains in positive balance cannot keep Lasix regularly due to low blood pressure We will continue current management and Lasix will be given when the blood pressure was up systolic more than 100 Clinically stable and feels a little better but is still requiring high flow oxygen We will give another dose of intravenous Lasix today Constipation Continue bowel regimen Advance diet as tolerated Transaminitis Secondary to CVOID Monitor -remains stable Steroid-induced hyperglycemia Prediabetes HbA1C:5.7 Anxiety/depression Has been on Lexapro at home Holding Lexapro to avoid any drug interaction and QT prolongation Has been able to tolerate CPAP or BiPAP DVT Px:SCDs Re: Hemoptysis Code Status Full code Admission and Anticipated Discharge Date Admission Date: July 03, 2021 Subjective 07/05/2021 The patient was seen and examined in telemetry unit and in the COVID room He has been feeling a little better Still requiring high flow oxygen to maintain saturation at a rate of 40 L with 80% FiO2 Denies any fever and/or chills, any nausea and/or vomiting 07/06/2021 The patient was seen and examined in telemetry unit and in the COVID room He has been feeling better but he still requires 40 L at 70% FiO2 to maintain saturation Denies any significant cough and shortness of breath at rest 07/07/2021 The patient was seen and examined in telemetry unit and in the COVID room He remained stable and is still requiring high flow oxygen to maintain saturation We will continue current management including intravenous Lasix to avoid intubation Review of Systems Review of Systems: All systems reviewed and are unremarkable except as noted below Respiratory: Minimal shortness of breath at rest Neurologic: Alert, awake and oriented x3. Generally very weak and lethargic Physical Exam 2 Physical Exam: Lying in bed in prone position Constitutional: well developed, well nourished, + ill appearing and + obese Eyes: PERRL, conjunctivae normal, anicteric sclerae ENMT: external ear and nose normal, oropharynx normal Neck: trachea midline, no thyromegaly Respiratory: no respiratory distress Auscultation: + diminished lung sounds Cardiovascular: Rate/Rhythm: regular rate and regular rhythm; not tachycardic Heart Sounds: normal S1 and normal S2; no murmur Extremities: + edema (Trace edema bilaterally) Gastrointestinal (Abdomen): Inspection/Auscultation: abdomen not distended Percussion/Palpation: abdomen soft; abdomen nontender Musculoskeletal: No acute arthritis in any joint Neurologic: Alert and awake Results & Data Results & Data ([facility]) Vital Signs (Past 12 Hours) Vital Signs Temp Pulse Pulse Resp BP BP Pulse Ox 07/07/21 15:31 37.0 C 60 24 85/52 L 96 07/07/21 15:23 68 24 94 07/07/21 15:00 58 L 07/07/21 11:26 37.4 C 58 L 24 101/55 L 90 07/07/21 11:23 62 26 H 88 L 07/07/21 11:00 71 07/07/21 07:50 79 20 90 07/07/21 07:49 37.2 C 73 28 H 89/56 L 90 Medications Administered Current Inpatient Medications Acetaminophen (Acetaminophen 325 Mg Tab) 325 mg PO Q6H PRN PRN Reason: Mild Pain Stop: 08/03/21 02:02 Last Admin: 07/07/21 00:16 Dose: 325 mg Documented by: Azithromycin (Azithromycin 250 Mg Tab) 250 mg PO QAM [facility] Stop: 07/08/21 08:59 Last Admin: 07/07/21 08:55 Dose: 250 mg Documented by: Benzonatate (Benzonatate 100 Mg Capsule) 100 mg PO TID [facility] Stop: 08/03/21 08:59 Last Admin: 07/07/21 15:25 Dose: 100 mg Documented by: Docusate Sodium (Docusate Sodium 100 Mg Cap) 100 mg PO BID PRN PRN Reason: Constipation Stop: 08/03/21 08:59 Enoxaparin Sodium (Enoxaparin Inj 40 Mg/0.4 Ml Syr) 40 mg SQ QAM [facility] Stop: 08/04/21 08:59 Last Admin: 07/07/21 08:55 Dose: 40 mg Documented by: Guaifenesin/Dextromethorphan (Guaifenesin/Dextrom Syrup 200mg/20mg 10ml Udc) 10 ml PO Q6 [facility] Stop: 08/03/21 08:29 Last Admin: 07/07/21 12:36 Dose: 10 ml Documented by: Hydroxyzine HCl (Hydroxyzine Hcl 10 Mg Tab) 10 mg PO QID PRN PRN Reason: anxiety Stop: 08/03/21 02:02 Last Admin: 07/07/21 10:00 Dose: 10 mg Documented by: Promethazine HCl 12.5 mg/ (Sodium Chloride) 50.5 mls @ 202 mls/hr IV Q6H PRN PRN Reason: Nausea And Vomiting Stop: 08/03/21 02:02 Last Infusion: 07/06/21 19:27 Dose: Infused Documented by: Dexamethasone 10 mg/ Syringe 2.5 mls @ 1 mls/min IV DAILY [facility] Stop: 08/03/21 08:59 Last Admin: 07/07/21 08:56 Dose: 1 mls/min Documented by: Pantoprazole Sodium 40 mg/ (Syringe) 10 mls @ 5 mls/min IV DAILY@1100 [facility] Stop: 08/04/21 10:59 Last Admin: 07/07/21 12:36 Dose: 5 mls/min Documented by: Ipratropium [place] (Ipratropium [place] Neb Soln 0.02% 2.5 Ml Vial) 0.5 mg INH Q4H PRN PRN Reason: SOB, WHEEZE Stop: 08/03/21 02:42 Last Admin: 07/04/21 06:09 Dose: 0.5 mg Documented by: Levalbuterol HCl (Levalbuterol 1.25mg/0.5ml Neb) 1.25 mg INH Q4H PRN PRN Reason: SOB, WHEEZE Stop: 08/03/21 02:02 Last Admin: 07/04/21 06:09 Dose: 1.25 mg Documented by: Multivitamins/Minerals (Cerovite Adv Formula Tab) 1 tab PO DAILY [facility] Stop: 08/03/21 08:59 Last Admin: 07/07/21 08:55 Dose: 1 tab Documented by: Ondansetron HCl (Ondansetron Inj 2 Mg/Ml 2 Ml Vial) 4 mg IV Q4H PRN PRN Reason: Nausea Stop: 08/04/21 06:07 Last Admin: 07/06/21 23:53 Dose: 4 mg Documented by: Polyethylene Glycol (Polyethylene (Miralax) 17 Gm Pack) 17 gm PO DAILY PRN PRN Reason: Constipation Stop: 08/03/21 08:19
[2021-07-07] MEDS ORDERED: LORazepam 0.5 MG TAB PO STA (21:49)
[2021-07-08] MEDS: ACETAMINOPHEN 325 MG TAB PO PRN (02:23)
[2021-07-08] MEDS: guaiFENesin/DEXTROM SYRUP 200MG/20MG 10ML UDC PO SCH ×2 (03:58→06:28)
[2021-07-08] MEDS ORDERED: LORazepam 0.5 MG TAB PO PRN (07:01)
[2021-07-08] MEDS: ENOXAPARIN INJ 40 MG/0.4 ML SYR SQ SCH (07:46)
[2021-07-08] MEDS: CEROVITE ADV FORMULA TAB PO SCH (07:46)
[2021-07-08] MEDS: dexAMETHasone 10 MG in SYRINGE 0 ML IV SCH (07:47)
[2021-07-08] MEDS: ONDANSETRON INJ 2 MG/ML 2 ML VIAL IV PRN (07:52)
[2021-07-08] MEDS: BENZONATATE 100 MG CAPSULE PO SCH ×3 (07:52→20:13)
[2021-07-08 08:13] LABS: BUN Creatinine Ratio 31.3 (10-20); Calcium 8.1 mg/dl (8.5-10.1); Creatinine Clr Calc Pharmacy 97.2 ml/min; Est GFR (African American) 119.7 ml/min; Est GFR (Non-African American) 103.3 ml/min; Magnesium 2.3 mg/dl (1.7-2.4); Potassium 3.7 mmol/L (3.5-5.1)
[2021-07-08] MEDS ORDERED: RAPID SEQUENCE INDUCTION BAG ONE (09:00)
[2021-07-08] MEDS ORDERED: PROPOFOL IV EMULSION 10 MG/ML 100 ML VIAL IV ONE (09:00)
[2021-07-08] MEDS ORDERED: NOREPINEPHRINE/D5W 8 MG/508 ML IV ONE (09:01)
--- NOTE | 2021-07-08 09:03 | Procedure Note ---
Procedure Note Date of Service July 08, 2021 Note INTUBATION PROCEDURE NOTE: Attending: Dr Zack Holliday MD Patient was evaluated and plan to intubate was made for ventilatory failure. Sedative agent used: Etomidate 20 mg, lidocaine 100 mg Paralysis agent used: Rocuronium 50 mg Emergent consent was implied given patients rapidly declining clinical status and need for airway protection. The patient was prepared in the appropriate fashion. The patient was easily pre-oxygenated by using [id number] ventilation. With help of CMAC grade 1 vocal cords were visualized and 8 [place] ETT was introduced on first attempt to 24 cm at the lip. The stylette was removed and balloon was inflated with 10mL of air. Appropriate Colorimetric change was appreciated for at least 10 breaths. Bilateral chest rise and breath sounds were appreciated without air sounds in the epigastrium. Patient tolerated the procedure well and there were no immediate complications. Chest Xray to follow for confirming placement. Coding CPT Codes Resuscitation - Resuscitation: 67532 Endotracheal Intubation, emergency ([id number]) [facility] [place] Codes (Charges) Resuscitation Resuscitation: 68426 Endotracheal Intubation, emergency
--- NOTE | 2021-07-08 09:04 | Procedure Note ---
Procedure Note Date of Service July 08, 2021 Note ARTERIAL LINE PROCEDURE NOTE: Procedure: Arterial Line Placement Attending: Dr. Zack Holliday MD Indication: ARDS Anesthesia: General anesthesia Emergent consent was applied A time-out was completed verifying correct patient, procedure, site, positioning, and implant(s) or special equipment if applicable. Allens test was performed to ensure adequate perfusion. Patients left wrist was prepped and draped in the usual sterile fashion. Ultrasound guidance was used to aid needle placement. A 20g Arrow arterial line was introduced into the left radial artery. Catheter was threaded, and the needle was removed with appropriate pulsatile blood return. Good waveform was observed on the monitor. The patient tolerated the procedure well. Confirmation of placement with ultrasound. Images saved to medical record. Complications: None Blood Loss: Less than 1 cc Coding CPT Codes Tubes, Drains, and Vasc Access - Tubes, Drains, and Vasc Access: [id number] Place Catheter In Artery ([id number]) Tubes, Drains, and Vasc Access - Tubes, Drains, and Vasc Access: [id number] Ultrasound Guidance For Vascular ([id number]) [facility] [place]Charges) Tubes, Drains, and Vasc Access Procedure 1: Tubes, Drains, and Vasc Access: [id number] Place Catheter In Artery Procedure 2: Tubes, Drains, and Vasc Access: [id number] Ultrasound Guidance For Vascular
--- NOTE | 2021-07-08 09:04 | Procedure Note ---
Procedure Note Date of Service July 08, 2021 Note Procedure: Inserting ultrasound-guided central fisher trot line: Dr. Zack Holliday Indication: ARDS Consent: Emergent consent was applied Anesthesia: 1% lidocaine without epinephrine local. Procedure: Consent was verified and timeout performed. Appropriate imaging studies were reviewed prior to the procedure. Under aseptic and sterile condition, right IJ vein was accessed under direct ultrasound guidance. Guidewire was confirmed to be within the lumen of vein with the help of ultrasound. Catheter was introduced via Seldinger technique. Guide a wire was removed. Good non-pulsatile blood flow was appreciated from all the ports. The catheter was placed at 16 cm and [address] in place. BioPatch was applied to the catheter and a sterile Tegaderm dressing was applied over the catheter with careful attention to sterility. Lung sliding was appreciated post procedure with the help ultrasound. Chest x-ray to follow Patient tolerated the procedure well. Blood loss: Less than 2 cc Complications: None Coding CPT Codes Tubes, Drains, and Vasc Access - Tubes, Drains, and Vasc Access: [id number] Place catheter in vein superior or inferior vena cava ([id number]) Tubes, Drains, and Vasc Access - Tubes, Drains, and Vasc Access: [id number] Ultrasound Guidance For Vascular ([id number]) [facility] [place] (Charges) Tubes, Drains, and Vasc Access Procedure 1: Tubes, Drains, and Vasc Access: [id number] Place catheter in vein superior or inferior vena cava Procedure 2: Tubes, Drains, and Vasc Access: [id number] Ultrasound Guidance For Vascular
[2021-07-08] MEDS ORDERED: fentaNYL citrate 2,500 MCG/250 ML BAG IV ONE (09:19)
[2021-07-08] MEDS ORDERED: STAT IV Infusion **Titration per Protocol STA ×4 (09:33→18:20)
[2021-07-08] MEDS: CISATRACURIUM BESYLATE 40 MG in DEXTROSE 5% 80 ML IV SCH ×5 (09:45→23:51)
--- NOTE | 2021-07-08 10:28 | Critical Care Progress Note ---
Date of Service July 08, 2021 Assessment & Plan (1) Acute hypoxemic respiratory failure: (2) Bilateral pneumonia: (3) Pneumonia due to COVID-19 virus: (4) Hemoptysis: Plan: CT chest 07/03/2021 personally reviewed: Diffuse alveolar opacities appreciated bilaterally more on the right side Mild mediastinal lymphadenopathy Significantly worsened compared to the CT chest done on 07/02/2021 Reason Critically Ill: 50-year-old male presented to the hospital with complaints of shortness of breath. Was found to be COVID-19 positive Was on high flow and required more noninvasive support. To intubation on 07/08/2021 Neuro - Anesthetic: Fentanyl Sedatives: Propofol Paralytics: Nimbex Cardiac - --Bradycardia Likely from hydroxyzine Need to be careful with propofol Respiratory - --Acute hypoxic respiratory failure Secondary to multilobar COVID-19 pneumonia COVID-19 PCR positive 07/03/2021 CRP 13.36 Procalcitonin 0.23 S/p Tocilizumab 07/04/2021 --Hemoptysis Likely from chronic coughing and pneumonia H&H stable GI - --Transaminitis Likely from COVID-19 Trending down Continue to monitor RENAL/LYTES - Monitor BUN/creatinine Replace electrolytes as per protocol ENDO - ICU hypoglycemia protocol HEME - No acute events ID - --COVID-19 pneumonia Continue with dexamethasone S/p Tocilizumab 07/04/2021 Complete the course of antibiotics --Prophylaxis VTE: Lovenox GI: Protonix Lines: Right IJ, left radial, positive ETT Diet: N.p.o. Plan: Follow-up ABG and chest x-ray We will start the patient on paralytics Patient will likely need to be proned We will see how he responds in the next couple of hours If there is no improvement in his oxygenation patient will benefit from ECMO Patient's blood pressure is on the lower side. I will start the patient on Levophed to keep MAP greater than 65 Patient's Alyson [phone] was called and updated regarding patient's current condition. I have personally spent 68 minutes of critical care time in the direct management of this patient. This is a life/limb threatening event. This includes time spent evaluating patient, direct bedside care, chart review, placing orders, interpretation of diagnostic studies, discussion with consultants, patient, and family members, as well as other required patient management activities. This time is exclusive of all separately billable procedures, and teaching time and separate from and in addition to any other critical care service time. Please note the above document was generated using voice recognition software. It may contain grammatical, syntax or spelling errors. Admission and Anticipated Discharge Date Admission Date: July 03, 2021 Subjective Patient seen and examined at bedside. Patient was on BiPAP at the time of examination breathing 38-39 100% FiO2 saturation 88-89 I changed to CPAP of 8 his respiratory rate went down to 35 but he was still in distress There has been progressive worsening in patient's need for oxygen. He did complain of mild chest tightness. He was anxious. I did consult him I discussed with the patient regarding intubation he was agreeable to it if need be Review of Systems Review of Systems: All systems reviewed & are unremarkable except as noted in Subjective Physical Exam Physical Exam: Constitutional: Respiratory distress HEENT: EOMI, PERRLA Respiratory system: Decreased air entry bilaterally, no wheeze, rhonchi, positive crackles bilaterally CVS: S1-S2 positive, no murmurs or gallops Abdomen: Soft, nontender, nondistended, positive bowel sounds x4 Extremities: +2 pulses bilaterally radialis/ dorsalis pedis, no cyanosis, no edema Neuro: Awake alert oriented x3 Psych: Normal mood and affect G/U: No Harris Skin: no rashes, warm and dry Lymphatic: no cervical or axillary lymphadenopathy Results & Data Results & Data ([facility]) Vital Signs (Past 12 Hours) Vital Signs Temp Pulse Pulse Pulse Resp BP Pulse Ox 07/08/21 09:24 109 H 30 H 90 07/08/21 08:44 74 34 H 90/49 L 89 L 07/08/21 07:41 75 22 86 L 07/08/21 03:26 36.9 C 59 L 24 88/51 L 93 07/08/21 03:25 68 22 92 07/07/21 23:25 60 24 90 07/07/21 23:01 36.9 C 56 L 22 95/56 L 93 Laboratory Results 07/06/21 06:37 07/08/21 07:10 Coding Level of Care Code Critical Care 1st 30-74 mins Diagnoses Acute hypoxemic respiratory failure J96.01 Bilateral pneumonia J18.9 Pneumonia due to COVID-19 virus U07.1; J12.82 Hemoptysis R04.2 Time Spent (min) 65
[2021-07-08] MEDS: ARTIFICIAL TEARS OP OINT 3.5 GM TUBE OP SCH ×4 (10:34→20:14)
--- NOTE | 2021-07-08 10:36 | XRay Report ---
SINGLE VIEW CHEST CLINICAL HISTORY: Respiratory failure. Intubation. FINDINGS: 2 AP, portable, semierect chest radiographs are compared to study dated 07/05/2021 a right in ternal jugular central venous catheter has been placed. The tip projects over the SVC. An endotrachea l tube has been placed. The tip projects approximately 5 cm above the vitaly.. An enteric tube has be en placed. The tip projects below the diaphragm over the mid to distal stomach. The cardiomediastinal silhouette is unremarkable. Multifocal airspace consolidation has not appreciably changed as compare d to 07/05/2021. No large pleural effusion or pneumothorax is seen. The bony thorax is grossly intact. There is minimal thoracic scoliosis. IMPRESSION: 1. Line and tube placement as above. 2. No pneumothorax is seen post procedure. 3. Multifocal airspace consolidation has not appreciably changed as compared to 07/05/2021. ACT 112: Negative or not required by law. Electronically signed by: Tony Varner M.D. 07/08/2021 10:35 AM
[2021-07-08] MEDS ORDERED: PROPOFOL BOLUS FROM BAG IV PRN (10:59)
[2021-07-08] MEDS ORDERED: ACETAMINOPHEN 1,000 MG/100 ML VIAL IV PRN (10:59)
[2021-07-08] MEDS: propofoL 1,000 MG/100 ML VIAL IV SCH ×2 (11:00→16:24)
[2021-07-08 11:08] LABS: iSTAT Arterial Blood Gas HCO3 27 meg/L (19-24); iSTAT Arterial Blood Gas pCO2 42 mmHg (35-46); iSTAT Arterial Blood Gas pH 7.41 (7.35-7.45); iSTAT Arterial Blood Gas pO2 119 mmHg (80-95); iSTAT Carbon Dioxide 28 mmol/L (24-31); iSTAT FiO2 100 %; iSTAT Site Art Line
[2021-07-08] MEDS: fentaNYL citrate 2,500 MCG/250 ML BAG IV SCH (11:51)
[2021-07-08] MEDS: PANTOprazole 40 MG in SYRINGE 0 ML IV SCH (12:17)
--- NOTE | 2021-07-08 13:08 | Hospitalist Progress Note ---
Date of Service July 08, 2021 Assessment & Plan (1) Acute hypoxemic respiratory failure: Plan: Acute respiratory failure with hypoxia Multifocal pneumonia due to COVID-19 virus COVID Screen:Positive CT Chest:Marked interval worsening of interstitial and alveolar groundglass opacities representing Covid pneumonia. Unvaccinated State Symptoms Onset: 3 weeks ago Procalcitonin: 0.23,CRP:14.4 Sputum culture is growing moderate normal ethel and blood cultures are negative Received Tocilizumab,Continue dexamethasone Also on azithromycin Appreciate pulmonology input and recommendation Feels better but he still requires high flow oxygen to maintain saturation Remains in positive balance cannot keep Lasix regularly due to low blood pressure We will continue current management and Lasix will be given when the blood pressure was up systolic more than 100 Clinically stable and feels a little better but is still requiring high flow oxygen We will give another dose of intravenous Lasix today Condition deteriorated and required urgent mechanical ventilation Remains stable on ventilator we will transfer the patient to ICU for continued care Constipation Continue bowel regimen Advance diet as tolerated Transaminitis Secondary to CVOID Monitor -remains stable Steroid-induced hyperglycemia Prediabetes HbA1C:5.7 Anxiety/depression Has been on Lexapro at home Holding Lexapro to avoid any drug interaction and QT prolongation Has been able to tolerate CPAP or BiPAP DVT Px:SCDs Re: Hemoptysis Has been on Lovenox Code Status Full code Discussed with the in detail Admission and Anticipated Discharge Date Admission Date: July 03, 2021 Subjective 07/05/2021 The patient was seen and examined in telemetry unit and in the COVID room He has been feeling a little better Still requiring high flow oxygen to maintain saturation at a rate of 40 L with 80% FiO2 Denies any fever and/or chills, any nausea and/or vomiting 07/06/2021 The patient was seen and examined in telemetry unit and in the COVID room He has been feeling better but he still requires 40 L at 70% FiO2 to maintain saturation Denies any significant cough and shortness of breath at rest 07/07/2021 The patient was seen and examined in telemetry unit and in the COVID room He remained stable and is still requiring high flow oxygen to maintain saturation We will continue current management including intravenous Lasix to avoid intubation 07/08/2021 The patient was seen and examined in telemetry unit and in the COVID room His condition deteriorated this morning and required urgent mechanical ventilation He remains sedated on ventilator during examination Review of Systems Review of Systems: Unobtainable due to endotracheal tube Physical Exam Physical Exam: Remains sedated on mechanical ventilator Constitutional: well developed, well nourished, + ill appearing and + obese Eyes: PERRL, conjunctivae normal, anicteric sclerae ENMT: external ear and nose normal, oropharynx normal Neck: trachea midline, no thyromegaly Respiratory: no respiratory distress Auscultation: + diminished lung sounds Cardiovascular: Rate/Rhythm: regular rate and regular rhythm; not tachycardic Heart Sounds: normal S1 and normal S2; no murmur Extremities: + edema (Trace edema bilaterally) Gastrointestinal (Abdomen): Inspection/Auscultation: abdomen not distended Percussion/Palpation: abdomen soft; abdomen nontender Neurologic: Remains sedated on mechanical ventilator Results & Data Results & Data ([facility]) Vital Signs (Past 12 Hours) Vital Signs Temp Pulse Pulse Pulse Resp BP BP 07/08/21 12:30 37.0 C 62 26 H 113/73 07/08/21 12:00 37.2 C 71 26 H 122/69 07/08/21 11:30 37.3 C 62 26 H 07/08/21 11:00 37.4 C 61 26 H 113/71 07/08/21 10:30 66 30 H 116/72 07/08/21 10:00 65 30 H 120/80 07/08/21 09:53 93 H 36 H 126/89 07/08/21 09:50 83 30 H 67/39 L 07/08/21 09:48 83 30 H 79/47 L 07/08/21 09:46 88 30 H 95/79 L 07/08/21 09:38 93 H 30 H 113/73 07/08/21 09:28 109 H 30 H 126/100 07/08/21 09:24 109 H 30 H 139/90 07/08/21 09:20 98 H 30 H 123/80 07/08/21 09:18 99 H 26 H 132/95 07/08/21 09:15 140/110 H 07/08/21 08:44 74 34 H 90/49 L 07/08/21 07:41 75 22 07/08/21 03:26 36.9 C 59 L 24 88/51 L 07/08/21 03:25 68 22 Pulse Ox 07/08/21 12:30 89 L 07/08/21 12:00 89 L 07/08/21 11:30 94 07/08/21 11:00 95 07/08/21 10:30 94 07/08/21 10:00 90 07/08/21 09:53 07/08/21 09:50 88 L 07/08/21 09:48 88 L 07/08/21 09:46 88 L 07/08/21 09:38 91 07/08/21 09:28 90 07/08/21 09:24 87 L 07/08/21 09:20 85 L 07/08/21 09:18 84 L 07/08/21 09:15 88 L 07/08/21 08:44 89 L 07/08/21 07:41 86 L 07/08/21 03:26 93 07/08/21 03:25 92 Laboratory Results BMP 07/08/21 07:10 Sodium 137 Potassium 3.7 Chloride 99 Carbon Dioxide 31 BUN 26 H Creatinine 0.83 Glucose 114 H Calcium 8.1 L Medications Administered Current Inpatient Medications Benzonatate (Benzonatate 100 Mg Capsule) 100 mg PO TID [facility] Stop: 08/03/21 08:59 Last Admin: 07/08/21 12:52 Dose: Not Given Documented by: Docusate Sodium (Docusate Sodium 100 Mg Cap) 100 mg PO BID PRN PRN Reason: Constipation Stop: 08/03/21 08:59 Enoxaparin Sodium (Enoxaparin Inj 40 Mg/0.4 Ml Syr) 40 mg SQ QAM [facility] Stop: 08/04/21 08:59 Last Admin: 07/08/21 07:46 Dose: 40 mg Documented by: Fentanyl Citrate (Fentanyl Bolus From Bag) 50 mcg IV Q60M PRN PRN Reason: Pain or Agitation Stop: 07/22/21 10:58 Dexamethasone 10 mg/ Syringe 2.5 mls @ 1 mls/min IV DAILY [facility] Stop: 08/03/21 08:59 Last Admin: 07/08/21 07:47 Dose: 1 mls/min Documented by: Pantoprazole Sodium 40 mg/ (Syringe) 10 mls @ 5 mls/min IV DAILY@1100 [facility] Stop: 08/04/21 10:59 Last Admin: 07/08/21 12:17 Dose: 5 mls/min Documented by: Cisatracurium Besylate 40 mg/ (Dextrose) 100 mls @ 28.71 mls/hr IV .Q3H29M [facility]; Protocol Stop: 08/07/21 09:44 Last Admin: 07/08/21 12:52 Dose: 3 mcg/kg/min, 28.7 mls/hr Documented by: Propofol (Diprivan) 1,000 mg in 100 mls @ 9.036 mls/hr IV .Q11H5M [facility]; Protocol Stop: 07/11/21 10:59 Last Admin: 07/08/21 11:00 Dose: 20 mcg/kg/min, 9 mls/hr Documented by: Acetaminophen (Ofirmev) 1,000 mg in 100 mls @ 400 mls/hr IV Q8H PRN PRN Reason: Fever/Mild Pain (Pain 1,2,3) Stop: 07/11/21 10:58 Fentanyl Citrate (Fentanyl Citrate) 2,500 mcg in 250 mls @ 2.5 mls/hr IV .Q96H [facility]; Protocol Stop: 07/22/21 10:59 Last Admin: 07/08/21 11:51 Dose: 100 mcg/hr, 10 mls/hr Documented by: Ipratropium [place] (Ipratropium [place] Neb Soln 0.02% 2.5 Ml Vial) 0.5 mg INH Q4H PRN PRN Reason: SOB, WHEEZE Stop: 08/03/21 02:42 Last Admin: 07/04/21 06:09 Dose: 0.5 mg Documented by: Levalbuterol HCl (Levalbuterol 1.25mg/0.5ml Neb) 1.25 mg INH Q4H PRN PRN Reason: SOB, WHEEZE Stop: 08/03/21 02:02 Last Admin: 07/04/21 06:09 Dose: 1.25 mg Documented by: Multi-Ingredient Cream (Artificial Tears Op Oint 3.5 Gm Tube) 1 appln OP Q4H [facility] Stop: 08/07/21 09:44 Last Admin: 07/08/21 12:17 Dose: 1 appln Documented by: Multivitamins/Minerals (Cerovite Adv Formula Tab) 1 tab PO DAILY [facility] Stop: 08/03/21 08:59 Last Admin: 07/08/21 07:46 Dose: 1 tab Documented by: Ondansetron HCl (Ondansetron Inj 2 Mg/Ml 2 Ml Vial) 4 mg IV Q4H PRN PRN Reason: Nausea Stop: 08/04/21 06:07 Last Admin: 07/08/21 07:52 Dose: 4 mg Documented by: Polyethylene Glycol (Polyethylene (Miralax) 17 Gm Pack) 17 gm PO DAILY PRN PRN Reason: Constipation Stop: 08/03/21 08:19 Propofol (Propofol Bolus From Bag) 20 mg IV Q5M PRN PRN Reason: Sedation Stop: 07/11/21 10:58
[2021-07-08] MEDS: NOREPINEPHRINE/D5W 8 MG/508 ML BAG IV SCH (13:15)
[2021-07-08] MEDS: MIDAZOLAM HCL 125 MG/250 ML BAG IV SCH (18:29)
[2021-07-08] MEDS ORDERED: ETOMIDATE 2 MG/ML 20 ML VIAL IV ONE (19:11)
[2021-07-08] MEDS ORDERED: ROCURONIUM BROMIDE 10 MG/ML 5 ML VIAL IV ONE (19:11)
[2021-07-08] MEDS ORDERED: LIDOCAINE 2% 20 MG/ML 5 ML SYR IV ONE (19:11)
[2021-07-09] MEDS: CISATRACURIUM BESYLATE 40 MG in DEXTROSE 5% 80 ML IV SCH ×6 (03:03→21:28)
[2021-07-09] MEDS: ARTIFICIAL TEARS OP OINT 3.5 GM TUBE OP SCH ×6 (03:04→21:55)
[2021-07-09] MEDS: fentaNYL citrate 2,500 MCG/250 ML BAG IV SCH ×2 (03:38→20:28)
[2021-07-09 04:12] LABS: iSTAT Arterial Blood Gas HCO3 26 meg/L (19-24); iSTAT Arterial Blood Gas pCO2 35 mmHg (35-46); iSTAT Arterial Blood Gas pH 7.48 (7.35-7.45); iSTAT Arterial Blood Gas pO2 59 mmHg (80-95); iSTAT Carbon Dioxide 27 mmol/L (24-31); iSTAT FiO2 60 %; iSTAT Site Art Line
[2021-07-09 08:17] LABS: Basophils # (auto) 0.01 K/uL (0-0.2); Basophils % (auto) 0.1 %; Eosinophils # (auto) 0.31 K/uL (0-0.5); Eosinophils % (auto) 3.5 %; Hematocrit (blood only) 43.3 % (42-52); Hemoglobin 14.9 g/dL (14.0-18.0); Immature Granulocytes # (auto) 0.07 K/uL (0.00-0.02); Immature Granulocytes % (auto) 0.8 %; Lymphocytes # (auto) 0.86 K/uL (1.2-3.4); Lymphocytes % (auto) 9.6 %; Mean Corpuscular Hemoglobin 30.7 pg (25-34); Mean Corpuscular Hgb Conc 34.4 g/dL (32-36); Mean Corpuscular Volume 89.1 fL (80-100); Mean Platelet Volume 10.2 fL (7.4-10.4); Monocytes # (auto) 0.11 K/uL (0.11-0.59); Monocytes % (auto) 1.2 %; Neutrophils # (auto) 7.57 K/uL (1.4-6.5); Neutrophils % (auto) 84.8 %; Platelet Count 188 K/uL (130-400); RDW Coefficient of Variation 12.4 % (11.5-14.5); RDW Standard Deviation 40.1 fL (36.4-46.3); Red Blood Count 4.86 M/uL (4.7-6.1); White Blood Count 8.93 K/uL (4.8-10.8)
[2021-07-09 08:36] LABS: Albumin Globulin Ratio 1.2 (0.9-2); Albumin Level 3.1 gm/dl (3.4-5.0); BUN Creatinine Ratio 43.3 (10-20); Bilirubin,Total 0.8 mg/dl (0.2-1.0); Creatinine Clr Calc Pharmacy 134.4 ml/min; Est GFR (African American) 136.8 ml/min; Est GFR (Non-African American) 118.1 ml/min; Globulin 2.5 gm/dl (2.5-4.0); Magnesium 2.4 mg/dl (1.7-2.4); Phosphorus 3.2 mg/dl (2.5-4.9); Potassium 3.9 mmol/L (3.5-5.1); Total Protein 5.6 gm/dl (6.0-8.3)
--- NOTE | 2021-07-09 08:50 | XRay Report ---
XR chest 1V portable CLINICAL HISTORY: Follow-up alveolar opacities. COMPARISON STUDY: 07/08/2021 TECHNIQUE: 1 view of the chest FINDINGS: Single frontal view of the chest demonstrates the cardiomediastinal silhouette to be within normal li mits. Tubes and catheters are unchanged. Compared to the previous examination, there has been partial resolution of bilateral alveolar opacities, right greater than left. There is no evidence for pleura l effusion. There is no evidence for vascular congestion. There is no acute osseous pathology. IMPRESSION: Interval improvement of bilateral interstitial and alveolar opacities, right greater than left. ACT 112: Negative or not required by law. Electronically signed by: Carlos Cruz M.D. 07/09/2021 8:49 AM
[2021-07-09] MEDS: dexAMETHasone 10 MG in SYRINGE 0 ML IV SCH (08:57)
[2021-07-09] MEDS: BENZONATATE 100 MG CAPSULE PO SCH ×3 (09:00→20:28)
[2021-07-09] MEDS: ENOXAPARIN INJ 40 MG/0.4 ML SYR SQ SCH (09:01)
--- NOTE | 2021-07-09 09:23 | Electrocardiogram Report ---
Test Reason : Blood Pressure : / mmHG Vent. Rate : 052 BPM Atrial Rate : 052 BPM P-R Int : 120 ms QRS Dur : 080 ms QT Int : 486 ms P-R-T Axes : -01 093 046 degrees QTc Int : 451 ms Sinus bradycardia Rightward axis Cannot rule out Anteroseptal infarct , age undetermined Abnormal ECG When compared with ECG of 03-JUL-2021 20:03, Minimal criteria for Anteroseptal infarct are now Present Confirmed by Rayo Hurtado ([id number]) on 07/09/2021 9:23:18 AM Referred By: REFERRED SELF Confirmed By:Rayo Hurtado
[2021-07-09] MEDS: CEROVITE ADV FORMULA TAB PO SCH (10:43)
[2021-07-09] MEDS: PANTOprazole 40 MG in SYRINGE 0 ML IV SCH (10:44)
--- NOTE | 2021-07-09 12:59 | Critical Care Progress Note ---
Date of Service July 09, 2021 Assessment & Plan (1) Acute hypoxemic respiratory failure: (2) Bilateral pneumonia: (3) Pneumonia due to COVID-19 virus: (4) Hemoptysis: Plan: CT chest 07/03/2021 personally reviewed: Diffuse alveolar opacities appreciated bilaterally more on the right side Mild mediastinal lymphadenopathy Significantly worsened compared to the CT chest done on 07/02/2021 Reason Critically Ill: 50-year-old male presented to the hospital with complaints of shortness of breath. Was found to be COVID-19 positive Was on high flow and required more noninvasive support. To intubation on 07/08/2021 Neuro - Anesthetic: Fentanyl Sedatives: Midazolam, propofol had to be discontinued because of bradycardic episodes Paralytics: Nimbex Cardiac - --Bradycardia Likely from hydroxyzine Need to be careful with propofol Respiratory - --Acute hypoxic respiratory failure Secondary to multilobar COVID-19 pneumonia Intubated 07/08/2021 COVID-19 PCR positive 07/03/2021 CRP 13.36 Procalcitonin 0.23 S/p Tocilizumab 07/04/2021 --Hemoptysis --> resolved Likely from chronic coughing and pneumonia H&H stable GI - --Transaminitis Likely from COVID-19 Trending down Continue to monitor RENAL/LYTES - Monitor BUN/creatinine Replace electrolytes as per protocol ENDO - ICU hypoglycemia protocol HEME - No acute events ID - --COVID-19 pneumonia Continue with dexamethasone S/p Tocilizumab 07/04/2021 Complete the course of antibiotics --Prophylaxis VTE: Lovenox GI: Protonix Lines: Right IJ, left radial, positive ETT Diet: N.p.o. Plan: In/out: +50, urine output 995 AB.48/35/59 on 10 of PEEP, 60% I decreased the respirated to 22 I did go up on PEEP to 12 and FiO2 60% while the patient was prone Continue with paralytics Patient's Alyson [phone] I have personally spent 38 minutes of critical care time in the direct manage ment of this patient. This is a life/limb threatening event. This includes time spent evaluating pa tient, direct bedside care, chart review, placing orders, interpretation of diagnostic studies, discussion with consultants, patient, and family members, as well as other required patient management activities. This time is exclusive of all separately billable procedures, and teaching time and separate from and in addition to any other critical care service time. Please note the above document was generated using voice recognition software. It may contain grammatical, syntax or spelling errors. Admission and Anticipated Discharge Date Admission Date: July 03, 2021 Subjective Patient seen and examined at bedside. No acute distress, no events overnight Patient was on 10 of PEEP, 50% of the time of examination saturating 87% I went up the PEEP to 12 Is on low-dose Levophed On midazolam 1 mg, fentanyl 150 Review of Systems Review of Systems: Unobtainable due to endotracheal tube Physical Exam Physical Exam: Constitutional: No acute distress HEENT: EOMI, PERRLA Respiratory system: Decreased air entry bilaterally, no wheeze, rhonchi, positive crackles bilaterally CVS: S1-S2 positive, no murmurs or gallops Abdomen: Soft, nontender, nondistended, positive bowel sounds x4 Extremities: +2 pulses bilaterally radialis/ dorsalis pedis, no cyanosis, no edema Neuro: Sedated and paralyzed Psych: Unable to assess G/U: Positive Harris Skin: no rashes, warm and dry Lymphatic: no cervical or axillary lymphadenopathy Results & Data Results & Data ([facility]) Vital Signs (Past 12 Hours) Vital Signs Temp Pulse Resp BP Pulse Ox Pulse Ox 07/09/21 12:30 75 22 118/68 07/09/21 12:15 73 22 119/67 07/09/21 12:00 65 22 108/60 07/09/21 11:45 67 22 105/64 07/09/21 11:30 70 22 107/61 07/09/21 11:15 75 22 07/09/21 11:00 80 24 88 L 07/09/21 10:55 67 26 H 93 07/09/21 10:45 37.1 C 66 26 H 97/61 L 91 07/09/21 10:30 37.1 C 69 26 H 91/54 L 88 L 07/09/21 10:15 37.1 C 66 26 H 95/58 L 90 07/09/21 10:00 37.1 C 74 26 H 108/79 91 07/09/21 09:45 37.1 C 72 26 H 93/59 L 89 L 07/09/21 09:30 37.1 C 80 26 H 100/66 91 07/09/21 09:15 37.0 C 75 26 H 102/64 93 07/09/21 09:00 37.0 C 73 26 H 103/70 92 07/09/21 08:45 37.0 C 67 26 H 90/57 L 89 L 07/09/21 08:30 36.9 C 71 26 H 92/61 L 89 L 07/09/21 08:15 36.9 C 70 26 H 95/59 L 91 07/09/21 08:00 36.9 C 63 26 H 96/65 L 90 07/09/21 07:45 36.9 C 70 26 H 104/70 92 07/09/21 07:31 36.9 C 73 26 H 86/60 L 92 07/09/21 07:30 36.9 C 71 26 H 93 07/09/21 07:24 67 26 H 95 07/09/21 07:15 36.9 C 68 26 H 92 07/09/21 07:00 36.9 C 69 26 H 89/61 L 93 07/09/21 05:15 26 H 07/09/21 05:00 36.7 C 61 26 H 120/71 95 07/09/21 04:00 36.8 C 63 26 H 115/75 94 07/09/21 03:30 57 L 26 H 91 07/09/21 03:00 36.8 C 57 L 26 H 114/74 93 07/09/21 02:00 36.8 C 55 L 25 H 114/76 94 93 07/09/21 01:00 36.8 C 54 L 26 H 110/72 93 Laboratory Results 07/09/21 07:28 07/09/21 07:28 Coding Level of Care Code Critical Care 1st 30-74 mins Diagnoses Acute hypoxemic respiratory failure J96.01 Bilateral pneumonia J18.9 Pneumonia due to COVID-19 virus U07.1; J12.82 Hemoptysis R04.2 Time Spent (min) 38
[2021-07-09] MEDS: MIDAZOLAM BOLUS FROM BAG IV PRN (13:25)
--- NOTE | 2021-07-09 13:32 | Hospitalist Progress Note ---
Date of Service July 09, 2021 Assessment & Plan (1) Acute hypoxemic respiratory failure: Plan: Acute respiratory failure with hypoxia Multifocal pneumonia due to COVID-19 virus COVID Screen:Positive CT Chest:Marked interval worsening of interstitial and alveolar groundglass opacities representing Covid pneumonia. Unvaccinated State Symptoms Onset: 3 weeks ago Procalcitonin: 0.23,CRP:14.4 Sputum culture is growing moderate normal ethel and blood cultures are negative Received Tocilizumab,Continue dexamethasone Also on azithromycin Appreciate pulmonology input and recommendation Feels better but he still requires high flow oxygen to maintain saturation Remains in positive balance cannot keep Lasix regularly due to low blood pressure We will continue current management and Lasix will be given when the blood pressure was up systolic more than 100 Clinically stable and feels a little better but is still requiring high flow oxygen We will give another dose of intravenous Lasix today Condition deteriorated and required urgent mechanical ventilation Remains stable on ventilator we will transfer the patient to ICU for continued care Remains ventilated and sedated-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 Requiring intravenous pressors to maintain blood pressure Constipation Continue bowel regimen Advance diet as tolerated Transaminitis Secondary to CVOID Monitor -remains stable on recheck Steroid-induced hyperglycemia Prediabetes HbA1C:5.7 Anxiety/depression Has been on Lexapro at home Holding Lexapro to avoid any drug interaction and QT prolongation Has been able to tolerate CPAP or BiPAP Medications on hold DVT Px:SCDs Re: Hemoptysis Has been on Lovenox Code Status Full code Discussed with the in detail on 07/08/2021 Admission and Anticipated Discharge Date Admission Date: July 03, 2021 Subjective 07/05/2021 The patient was seen and examined in telemetry unit and in the COVID room He has been feeling a little better Still requiring high flow oxygen to maintain saturation at a rate of 40 L with 80% FiO2 Denies any fever and/or chills, any nausea and/or vomiting 07/06/2021 The patient was seen and examined in telemetry unit and in the COVID room He has been feeling better but he still requires 40 L at 70% FiO2 to maintain saturation Denies any significant cough and shortness of breath at rest 07/07/2021 The patient was seen and examined in telemetry unit and in the COVID room He remained stable and is still requiring high flow oxygen to maintain saturation We will continue current management including intravenous Lasix to avoid intubation 07/08/2021 The patient was seen and examined in telemetry unit and in the COVID room His condition deteriorated this morning and required urgent mechanical ventilation He remains sedated on ventilator during examination 07/09/2021 The patient was seen and examined in telemetry unit and in the COVID room He remains intubated and on prone position during examination Remains stable and sedated Review of Systems Review of Systems: Unobtainable due to endotracheal tube Physical Exam Physical Exam: Remains sedated on mechanical ventilator Constitutional: well developed, well nourished, + ill appearing and + obese Eyes: PERRL, conjunctivae normal, anicteric sclerae ENMT: external ear and nose normal, oropharynx normal Neck: trachea midline, no thyromegaly Respiratory: no respiratory distress Auscultation: + diminished lung sounds Cardiovascular: Rate/Rhythm: regular rate and regular rhythm; not tachycardic Heart Sounds: normal S1 and normal S2; no murmur Extremities: + edema (Trace edema bilaterally) Gastrointestinal (Abdomen): Inspection/Auscultation: abdomen not distended Percussion/Palpation: abdomen soft; abdomen nontender Neurologic: Remains on mechanical ventilator Results & Data Results & Data ([facility]) Vital Signs (Past 12 Hours) Vital Signs Temp Pulse Resp BP Pulse Ox Pulse Ox 07/09/21 12:30 75 22 118/68 07/09/21 12:15 73 22 119/67 07/09/21 12:00 65 22 108/60 07/09/21 11:45 67 22 105/64 07/09/21 11:30 70 22 107/61 07/09/21 11:15 75 22 07/09/21 11:00 80 24 88 L 07/09/21 10:55 67 26 H 93 07/09/21 10:45 37.1 C 66 26 H 97/61 L 91 07/09/21 10:30 37.1 C 69 26 H 91/54 L 88 L 07/09/21 10:15 37.1 C 66 26 H 95/58 L 90 07/09/21 10:00 37.1 C 74 26 H 108/79 91 07/09/21 09:45 37.1 C 72 26 H 93/59 L 89 L 07/09/21 09:30 37.1 C 80 26 H 100/66 91 07/09/21 09:15 37.0 C 75 26 H 102/64 93 07/09/21 09:00 37.0 C 73 26 H 103/70 92 07/09/21 08:45 37.0 C 67 26 H 90/57 L 89 L 07/09/21 08:30 36.9 C 71 26 H 92/61 L 89 L 07/09/21 08:15 36.9 C 70 26 H 95/59 L 91 07/09/21 08:00 36.9 C 63 26 H 96/65 L 90 07/09/21 07:45 36.9 C 70 26 H 104/70 92 07/09/21 07:31 36.9 C 73 26 H 86/60 L 92 07/09/21 07:30 36.9 C 71 26 H 93 07/09/21 07:24 67 26 H 95 07/09/21 07:15 36.9 C 68 26 H 92 07/09/21 07:00 36.9 C 69 26 H 89/61 L 93 07/09/21 05:15 26 H 07/09/21 05:00 36.7 C 61 26 H 120/71 95 07/09/21 04:00 36.8 C 63 26 H 115/75 94 07/09/21 03:30 57 L 26 H 91 07/09/21 03:00 36.8 C 57 L 26 H 114/74 93 07/09/21 02:00 36.8 C 55 L 25 H 114/76 94 93 Laboratory Results Short CBC 07/09/21 Range/Units 07:28 WBC 8.93 (4.8-10.8) K/uL Hgb 14.9 (14.0-18.0) g/dL Hct 43.3 (42-52) % Plt Count 188 (130-400) K/uL BMP 07/09/21 07:28 Sodium 135 L Potassium 3.9 Chloride 100 Carbon Dioxide 26 BUN 26 H Creatinine 0.60 Glucose 109 H Calcium 8.0 L Liver Function 07/09/21 Range/Units 07:28 Total Bilirubin 0.8 (0.2-1.0) mg/dl AST 52 H (13-39) U/L ALT 89 H (7-52) U/L Alkaline Phosphatase 80 (34-104) U/L Albumin 3.1 L (3.4-5.0) gm/dl Medications Administered Current Inpatient Medications Benzonatate (Benzonatate 100 Mg Capsule) 100 mg PO TID [facility] Stop: 08/03/21 08:59 Last Admin: 07/09/21 09:00 Dose: Not Given Documented by: Docusate Sodium (Docusate Sodium 100 Mg Cap) 100 mg PO BID PRN PRN Reason: Constipation Stop: 08/03/21 08:59 Enoxaparin Sodium (Enoxaparin Inj 40 Mg/0.4 Ml Syr) 40 mg SQ QAM [facility] Stop: 08/04/21 08:59 Last Admin: 07/09/21 09:01 Dose: 40 mg Documented by: Fentanyl Citrate (Fentanyl Bolus From Bag) 50 mcg IV Q60M PRN PRN Reason: Pain or Agitation Stop: 07/22/21 10:58 Dexamethasone 10 mg/ Syringe 2.5 mls @ 1 mls/min IV DAILY [facility] Stop: 08/03/21 08:59 Last Admin: 07/09/21 08:57 Dose: 1 mls/min Documented by: Pantoprazole Sodium 40 mg/ (Syringe) 10 mls @ 5 mls/min IV DAILY@1100 [facility] Stop: 08/04/21 10:59 Last Admin: 07/09/21 10:44 Dose: 5 mls/min Documented by: Cisatracurium Besylate 40 mg/ (Dextrose) 100 mls @ 19.14 mls/hr IV .Q5H14M [facility]; Protocol Stop: 08/07/21 09:44 Last Admin: 07/09/21 11:07 Dose: 2 mcg/kg/min, 19.1 mls/hr Documented by: Acetaminophen (Ofirmev) 1,000 mg in 100 mls @ 400 mls/hr IV Q8H PRN PRN Reason: Fever/Mild Pain (Pain 1,2,3) Stop: 07/11/21 10:58 Fentanyl Citrate (Fentanyl Citrate) 2,500 mcg in 250 mls @ 15 mls/hr IV .R42O16H [facility]; Protocol Stop: 07/22/21 10:59 Last Titration: 07/09/21 07:20 Dose: 150 mcg/hr, 15 mls/hr Documented by: Norepinephrine Bitartrate (Levophed/D5w) 8 mg in 508 mls @ 0 mls/hr IV .Q0M [facility]; Protocol Stop: 08/07/21 13:14 Last Titration: 07/08/21 20:00 Dose: 0 mcg/kg/min, 0 mls/hr Documented by: Midazolam HCl (Versed) 125 mg in 250 mls @ 2 mls/hr IV .Q96H [facility]; Protocol Stop: 08/07/21 18:29 Last Titration: 07/09/21 07:20 Dose: 1 mg/hr, 2 mls/hr Documented by: Ipratropium [place] (Ipratropium [place] Neb Soln 0.02% 2.5 Ml Vial) 0.5 mg INH Q4H PRN PRN Reason: SOB, WHEEZE Stop: 08/03/21 02:42 Last Admin: 07/04/21 06:09 Dose: 0.5 mg Documented by: Levalbuterol HCl (Levalbuterol 1.25mg/0.5ml Neb) 1.25 mg INH Q4H PRN PRN Reason: SOB, WHEEZE Stop: 08/03/21 02:02 Last Admin: 07/04/21 06:09 Dose: 1.25 mg Documented by: Midazolam HCl (Midazolam Bolus From Bag) 2 mg IV Q60M PRN PRN Reason: Sedation Stop: 08/07/21 18:19 Multi-Ingredient Cream (Artificial Tears Op Oint 3.5 Gm Tube) 1 appln OP Q4H [facility] Stop: 08/07/21 09:44 Last Admin: 07/09/21 10:43 Dose: 1 appln Documented by: Multivitamins/Minerals (Cerovite Adv Formula Tab) 1 tab PO DAILY [facility] Stop: 08/03/21 08:59 Last Admin: 07/09/21 10:43 Dose: 1 tab Documented by: Ondansetron HCl (Ondansetron Inj 2 Mg/Ml 2 Ml Vial) 4 mg IV Q4H PRN PRN Reason: Nausea Stop: 08/04/21 06:07 Last Admin: 07/08/21 07:52 Dose: 4 mg Documented by: Polyethylene Glycol (Polyethylene (Miralax) 17 Gm Pack) 17 gm PO DAILY PRN PRN Reason: Constipation Stop: 08/03/21 08:19 Propofol (Propofol Bolus From Bag) 20 mg IV Q5M PRN PRN Reason: Sedation Stop: 07/11/21 10:58
[2021-07-10] MEDS: CISATRACURIUM BESYLATE 40 MG in DEXTROSE 5% 80 ML IV SCH ×6 (00:12→07:35)
[2021-07-10] MEDS: ARTIFICIAL TEARS OP OINT 3.5 GM TUBE OP SCH ×6 (03:14→21:38)
[2021-07-10 03:40] LABS: iSTAT Art Bld Gas pCO2 Correct 43 mmHg (35-46); iSTAT Art Bld Gas pH Corrected 7.427 (7.35-7.45); iSTAT Arterial Blood Gas HCO3 29 meg/L (19-24); iSTAT Arterial Blood Gas pCO2 44 mmHg (35-46); iSTAT Arterial Blood Gas pH 7.42 (7.35-7.45); iSTAT Arterial Blood Gas pO2 78 mmHg (80-95); iSTAT Arterial Blood Gas pO2 C 75; iSTAT Carbon Dioxide 30 mmol/L (24-31); iSTAT FiO2 45 %; iSTAT Hematocrit 39 % (42-52); iSTAT Hemoglobin 13.3 g/dl (14.0-18.0); iSTAT Potassium 4.1 mmol/L (3.3-5.0); iSTAT Site Art Line; iSTAT Sodium 134 mmol/L (135-144)
[2021-07-10] MEDS: fentaNYL citrate 2,500 MCG/250 ML BAG IV SCH ×5 (04:00→21:37)
[2021-07-10 06:26] LABS: Basophils # (auto) 0.01 K/uL (0-0.2); Basophils % (auto) 0.1 %; Eosinophils # (auto) 0.31 K/uL (0-0.5); Eosinophils % (auto) 3.5 %; Hematocrit (blood only) 41.7 % (42-52); Hemoglobin 14.5 g/dL (14.0-18.0); Immature Granulocytes # (auto) 0.09 K/uL (0.00-0.02); Lymphocytes # (auto) 0.57 K/uL (1.2-3.4); Lymphocytes % (auto) 6.4 %; Mean Corpuscular Hgb Conc 34.8 g/dL (32-36); Mean Corpuscular Volume 89.3 fL (80-100); Mean Platelet Volume 10.1 fL (7.4-10.4); Monocytes # (auto) 0.17 K/uL (0.11-0.59); Monocytes % (auto) 1.9 %; Neutrophils # (auto) 7.82 K/uL (1.4-6.5); Neutrophils % (auto) 87.1 %; Platelet Count 171 K/uL (130-400); RDW Coefficient of Variation 12.4 % (11.5-14.5); Red Blood Count 4.67 M/uL (4.7-6.1); White Blood Count 8.97 K/uL (4.8-10.8)
[2021-07-10 06:40] LABS: Calcium 7.8 mg/dl (8.5-10.1); Creatinine Clr Calc Pharmacy 158.1 ml/min; Est GFR (African American) 146.3 ml/min; Est GFR (Non-African American) 126.2 ml/min; Magnesium 2.3 mg/dl (1.7-2.4); Phosphorus 2.7 mg/dl (2.5-4.9); Potassium 3.8 mmol/L (3.5-5.1)
--- NOTE | 2021-07-10 07:29 | XRay Report ---
XR chest 1V portable HISTORY: Respiratory distress. Follow-up pneumonia. COMPARISON: Chest 07/09/2021. FINDINGS: Lines and tubes remain unchanged in position. No pneumothorax. No pleural effusions. The he art is normal in size. Patchy bilateral airspace opacities, right greater than left, persists. No horace dence for pulmonary edema. IMPRESSION: 1. Satisfactory support line placement. 2. No change in the patchy bilateral airspace opacities consistent with a pneumonia. ACT 112: Negative or not required by law. Electronically signed by: Henrique Melendez M.D. 07/10/2021 7:28 AM
[2021-07-10] MEDS: BENZONATATE 100 MG CAPSULE PO SCH (08:04)
[2021-07-10] MEDS: dexAMETHasone 10 MG in SYRINGE 0 ML IV SCH (08:04)
[2021-07-10] MEDS: CEROVITE ADV FORMULA TAB PO SCH (08:05)
[2021-07-10] MEDS: ENOXAPARIN INJ 40 MG/0.4 ML SYR SQ SCH (08:05)
[2021-07-10] MEDS ORDERED: VECURONIUM BROMIDE 10 MG VIAL IV PRN (10:04)
[2021-07-10] MEDS ORDERED: POTASSIUM CHLORIDE 20 MEQ/15 ML UDC NG ONE (10:15)
[2021-07-10] MEDS: MIDAZOLAM BOLUS FROM BAG IV PRN ×3 (10:33→14:51)
[2021-07-10] MEDS: PANTOprazole 40 MG in SYRINGE 0 ML IV SCH (10:52)
--- NOTE | 2021-07-10 10:56 | Critical Care Progress Note ---
Date of Service July 10, 2021 Assessment & Plan (1) Acute hypoxemic respiratory failure: (2) Bilateral pneumonia: (3) Pneumonia due to COVID-19 virus: (4) Hemoptysis: Plan: CT chest 07/03/2021 personally reviewed: Diffuse alveolar opacities appreciated bilaterally more on the right side Mild mediastinal lymphadenopathy Significantly worsened compared to the CT chest done on 07/02/2021 Reason Critically Ill: 50-year-old male presented to the hospital with complaints of shortness of breath. Was found to be COVID-19 positive Was on high flow and required more noninvasive support. To intubation on 07/08/2021 Neuro - Anesthetic: Fentanyl Sedatives: Low-dose Versed Paralytics: Nimbex discontinued. We will continue vecuronium pushes every 2 as needed for ventilator synchrony. Cardiac - --no further issues of bradycardia today. Respiratory - --Acute hypoxic respiratory failure with ARDS Secondary to multilobar COVID-19 pneumonia Intubated 07/08/2021 COVID-19 PCR positive 07/03/2021 CRP 13.36 Procalcitonin 0.23 S/p Tocilizumab 07/04/2021 --Hemoptysis --> resolved Likely from chronic coughing and pneumonia H&H stable GI - --Transaminitis Likely from COVID-19 Trending down Continue to monitor RENAL/LYTES - Monitor BUN/creatinine Replace electrolytes as per protocol ENDO - ICU hypoglycemia protocol HEME - No acute events ID - --COVID-19 pneumonia Continue with dexamethasone S/p Tocilizumab 07/04/2021 Complete the course of antibiotics --Prophylaxis VTE: Lovenox GI: Protonix Lines: Right IJ, left radial, positive ETT Diet: N.p.o. CRITICAL CARE TIME - I have personally spent 34 minutes of critical care time in the direct management of this patient. This is a life/limb threatening event. This includes time spent evaluating patient, direct bedside care, chart review, placing orders, interpretation of diagnostic studies, discussion with consultants, patient, and family members, as well as other required patient management activities. This time is exclusive of all separately billable procedures, and teaching time and separate from and in addition to any other critical care service time. Admission and Anticipated Discharge Date Admission Date: July 03, 2021 Subjective Patient seen and examined. Continues on continuous Versed, fentanyl and Nimbex infusions. Currently in a supine position. No significant events overnight. Place from prone to supine positioning around 5 AM. Currently on 40% FiO2 and a PEEP of 8 with saturations of 89%. Review of Systems Review of Systems: Unobtainable due to endotracheal tube Physical Exam Physical Exam: Constitutional: No acute distress HEENT: ET tube in place. No obvious deformities. Respiratory system: Decreased air entry bilaterally, no wheeze, rhonchi, positive crackles bilaterally CVS: S1-S2 positive, no murmurs or gallops Abdomen: Soft, nontender, nondistended, positive bowel sounds x4 Extremities: +2 pulses bilaterally radialis/ dorsalis pedis, no cyanosis, no edema Neuro: Sedated and paralyzed Psych: Unable to assess G/U: Positive Harris Skin: no rashes, warm and dry Results & Data Results & Data ([facility]) Vital Signs (Past 12 Hours) Vital Signs Temp Pulse Resp BP Pulse Ox 07/10/21 07:47 74 22 95 07/10/21 04:00 71 136/64 07/10/21 03:26 65 22 97 07/10/21 00:00 36.8 C 56 L 22 103/61 07/09/21 23:43 63 22 92 07/09/21 23:00 36.8 C 59 L 22 103/64 93 Coding Level of Care Code Critical Care 1st 30-74 mins Diagnoses Acute hypoxemic respiratory failure J96.01 Bilateral pneumonia J18.9 Pneumonia due to COVID-19 virus U07.1; J12.82 Hemoptysis R04.2 Time Spent (min) 34
[2021-07-10] MEDS: PEPTAMEN INTENSE VHP 1.0 CAL 1,000 ML BAG OG SCH (13:18)
[2021-07-10] MEDS: TUBE FEEDING WATER FLUSH OG SCH ×3 (13:19→21:37)
--- NOTE | 2021-07-10 13:55 | Hospitalist Progress Note ---
Date of Service July 10, 2021 Assessment & Plan (1) Acute hypoxemic respiratory failure: Plan: Acute respiratory failure with hypoxia Multifocal pneumonia due to COVID-19 virus COVID Screen:Positive CT Chest:Marked interval worsening of interstitial and alveolar groundglass opacities representing Covid pneumonia. Unvaccinated State Symptoms Onset: 3 weeks ago Procalcitonin: 0.23,CRP:14.4 Sputum culture is growing moderate normal ethel and blood cultures are negative Received Tocilizumab,Continue dexamethasone Also on azithromycin Appreciate pulmonology input and recommendation Feels better but he still requires high flow oxygen to maintain saturation Remains in positive balance cannot keep Lasix regularly due to low blood pressure We will continue current management and Lasix will be given when the blood pressure was up systolic more than 100 Clinically stable and feels a little better but is still requiring high flow oxygen We will give another dose of intravenous Lasix today Condition deteriorated and required urgent mechanical ventilation Remains stable on ventilator we will transfer the patient to ICU for continued care Remains ventilated and sedated-management as per barrel raiser helper Requiring intravenous pressors to maintain blood pressure Remains stable on mechanical vent-management as per barrel raiser helper Constipation Continue bowel regimen Advance diet as tolerated Transaminitis Secondary to CVOID Monitor -remains stable on recheck Steroid-induced hyperglycemia Prediabetes HbA1C:5.7 Anxiety/depression Has been on Lexapro at home Holding Lexapro to avoid any drug interaction and QT prolongation Has been able to tolerate CPAP or BiPAP Medications on hold DVT Px:SCDs Re: Hemoptysis Has been on Lovenox Code Status Full code Discussed with the in detail on 07/08/2021 Admission and Anticipated Discharge Date Admission Date: July 03, 2021 Subjective 07/05/2021 The patient was seen and examined in telemetry unit and in the COVID room He has been feeling a little better Still requiring high flow oxygen to maintain saturation at a rate of 40 L with 80% FiO2 Denies any fever and/or chills, any nausea and/or vomiting 07/06/2021 The patient was seen and examined in telemetry unit and in the COVID room He has been feeling better but he still requires 40 L at 70% FiO2 to maintain saturation Denies any significant cough and shortness of breath at rest 07/07/2021 The patient was seen and examined in telemetry unit and in the COVID room He remained stable and is still requiring high flow oxygen to maintain saturation We will continue current management including intravenous Lasix to avoid intubation 07/08/2021 The patient was seen and examined in telemetry unit and in the COVNY room His condition deteriorated this morning and required urgent mechanical ventilation He remains sedated on ventilator during examination 07/09/2021 The patient was seen and examined in telemetry unit and in the COVNY room He remains intubated and on prone position during examination Remains stable and sedated 07/10/2021 The patient was seen and examined in telemetry unit and in the COVNY room He remains intubated and sedated Review of Systems Review of Systems: All systems reviewed and are unremarkable except as noted below Respiratory: Minimal shortness of breath at rest Neurologic: Alert, awake and oriented x3. Generally very weak and lethargic Physical Exam Physical Exam: Remains sedated on mechanical ventilator Constitutional: well developed, well nourished, + ill appearing and + obese Eyes: PERRL, conjunctivae normal, anicteric sclerae ENMT: external ear and nose normal, oropharynx normal Neck: trachea midline, no thyromegaly Respiratory: no respiratory distress Auscultation: + diminished lung sounds Cardiovascular: Rate/Rhythm: regular rate and regular rhythm; not tachycardic Heart Sounds: normal S1 and normal S2; no murmur Extremities: + edema (Trace edema bilaterally) Gastrointestinal (Abdomen): Inspection/Auscultation: abdomen not distended Percussion/Palpation: abdomen soft; abdomen nontender Results & Data Results & Data ([facility]) Vital Signs (Past 12 Hours) Vital Signs Temp Pulse Resp BP Pulse Ox 07/10/21 11:30 65 22 92 07/10/21 11:15 37.2 C 65 22 101/64 92 07/10/21 11:00 37.2 C 71 22 119/75 91 07/10/21 10:45 37.2 C 77 21 113/64 90 07/10/21 10:30 37.2 C 76 21 124/78 92 07/10/21 10:15 37.1 C 76 22 129/78 91 07/10/21 10:00 37.1 C 60 22 101/62 90 07/10/21 09:45 37.1 C 59 L 22 104/66 90 07/10/21 09:30 37.1 C 62 22 103/63 90 07/10/21 09:15 37.1 C 66 22 99/65 L 90 07/10/21 09:00 37.1 C 75 22 117/83 91 07/10/21 08:45 37.1 C 68 22 101/63 89 L 07/10/21 08:30 37.0 C 81 22 113/76 91 07/10/21 08:15 37.0 C 77 22 113/69 91 07/10/21 08:00 36.9 C 73 22 114/75 94 07/10/21 07:47 74 22 95 07/10/21 07:45 36.8 C 75 22 142/93 H 97 07/10/21 07:30 36.9 C 56 L 22 155/86 H 93 07/10/21 07:15 36.9 C 62 22 115/77 92 07/10/21 07:10 36.9 C 86 22 104/65 87 L 07/10/21 07:09 36.9 C 84 22 79/53 L 89 L 07/10/21 07:00 36.9 C 63 22 86/49 L 88 L 07/10/21 06:45 36.9 C 68 22 88/56 L 88 L 07/10/21 06:30 37.0 C 69 22 87/54 L 91 07/10/21 06:15 37.0 C 66 22 101/67 92 07/10/21 06:00 37.0 C 73 22 106/69 92 07/10/21 05:45 36.9 C 85 22 105/63 93 07/10/21 04:00 71 136/64 07/10/21 03:26 65 22 97 Laboratory Results Short CBC 07/10/21 Range/Units 06:00 WBC 8.97 (4.8-10.8) K/uL Hgb 14.5 (14.0-18.0) g/dL Hct 41.7 L (42-52) % Plt Count 171 (130-400) K/uL BMP 07/10/21 06:00 Sodium 134 L Potassium 3.8 Chloride 99 Carbon Dioxide 27 BUN 26 H Creatinine 0.51 L Glucose 121 H Calcium 7.8 L Medications Administered Current Inpatient Medications Benzonatate (Benzonatate 100 Mg Capsule) 100 mg PO TID GABINO Stop: 08/03/21 08:59 Last Admin: 07/10/21 08:04 Dose: Not Given Documented by: Docusate Sodium (Docusate Sodium 100 Mg Cap) 100 mg PO BID PRN PRN Reason: Constipation Stop: 08/03/21 08:59 Enoxaparin Sodium (Enoxaparin Inj 40 Mg/0.4 Ml Syr) 40 mg SQ QAM GABINO Stop: 08/04/21 08:59 Last Admin: 07/10/21 08:05 Dose: 40 mg Documented by: Fentanyl Citrate (Fentanyl Bolus From Bag) 50 mcg IV Q60M PRN PRN Reason: Pain or Agitation Stop: 07/22/21 10:58 Last Admin: 07/10/21 11:53 Dose: 50 mcg Documented by: Dexamethasone 10 mg/ Syringe 2.5 mls @ 1 mls/min IV DAILY [facility] Stop: 08/03/21 08:59 Last Admin: 07/10/21 08:04 Dose: 1 mls/min Documented by: Pantoprazole Sodium 40 mg/ (Syringe) 10 mls @ 5 mls/min IV DAILY@1100 [facility] Stop: 08/04/21 10:59 Last Admin: 07/10/21 10:52 Dose: 5 mls/min Documented by: Acetaminophen (Ofirmev) 1,000 mg in 100 mls @ 400 mls/hr IV Q8H PRN PRN Reason: Fever/Mild Pain (Pain 1,2,3) Stop: 07/11/21 10:58 Fentanyl Citrate (Fentanyl Citrate) 2,500 mcg in 250 mls @ 15 mls/hr IV .[id number] [facility]; Protocol Stop: 07/22/21 10:59 Last Titration: 07/10/21 11:53 Dose: 150 mcg/hr, 15 mls/hr Documented by: Norepinephrine Bitartrate (Levophed/D5w) 8 mg in 508 mls @ 5.738 mls/hr IV .Q24H [facility]; Protocol Stop: 08/07/21 13:14 Last Titration: 07/10/21 07:35 Dose: 0.02 mcg/kg/min, 5.7 mls/hr Documented by: Midazolam HCl (Versed) 125 mg in 250 mls @ 8 mls/hr IV .[id number] [facility]; Protocol Stop: 08/07/21 18:29 Last Titration: 07/10/21 11:47 Dose: 4 mg/hr, 8 mls/hr Documented by: Ipratropium [place] (Ipratropium [place] Neb Soln 0.02% 2.5 Ml Vial) 0.5 mg INH Q4H PRN PRN Reason: SOB, WHEEZE Stop: 08/03/21 02:42 Last Admin: 07/04/21 06:09 Dose: 0.5 mg Documented by: Levalbuterol HCl (Levalbuterol 1.25mg/0.5ml Neb) 1.25 mg INH Q4H PRN PRN Reason: SOB, WHEEZE Stop: 08/03/21 02:02 Last Admin: 07/04/21 06:09 Dose: 1.25 mg Documented by: Midazolam HCl (Midazolam Bolus From Bag) 2 mg IV Q60M PRN PRN Reason: Sedation Stop: 08/07/21 18:19 Last Admin: 07/10/21 11:48 Dose: 2 mg Documented by: Miscellaneous (Icu Electrolyte Replacement Protocol) 1 ea N/A BID@18 [facility]; Protocol Stop: 07/17/21 17:59 Multi-Ingredient Cream (Artificial Tears Op Oint 3.5 Gm Tube) 1 appln OP Q4H [facility] Stop: 08/07/21 09:44 Last Admin: 07/10/21 10:44 Dose: Not Given Documented by: Multivitamins/Minerals (Multi Vit W/Minerals Liquid 15 Ml Udp) 15 ml NG QAM [facility] Stop: 08/10/21 08:59 Nutritional Formula (Peptamen Intense Vhp 1.0 Keo 1,000 Ml Bag) 1,000 ml OG UD [facility]; Protocol Stop: 08/09/21 11:59 Last Admin: 07/10/21 13:18 Dose: 1,000 ml Documented by: Ondansetron HCl (Ondansetron Inj 2 Mg/Ml 2 Ml Vial) 4 mg IV Q4H PRN PRN Reason: Nausea Stop: 08/04/21 06:07 Last Admin: 07/08/21 07:52 Dose: 4 mg Documented by: Polyethylene Glycol (Polyethylene (Miralax) 17 Gm Pack) 17 gm PO DAILY PRN PRN Reason: Constipation Stop: 08/03/21 08:19 Sterile Water (Tube Feeding Water Flush) 30 ml OG Q4H [facility] Stop: 08/09/21 11:59 Last Admin: 07/10/21 13:19 Dose: Not Given Documented by: Vecuronium [place] (Vecuronium [place] 10 Mg Vial) 6.4 mg 0.1 mg/kg (6.4 mg) IV Q2H PRN PRN Reason: SEE LABEL COMMENTS Stop: 08/09/21 10:14
[2021-07-10] MEDS: MIDAZOLAM HCL 125 MG/250 ML BAG IV SCH (15:17)
[2021-07-10] MEDS: ICU ELECTROLYTE REPLACEMENT PROTOCOL SCH (17:57)
[2021-07-11] MEDS: TUBE FEEDING WATER FLUSH OG SCH ×6 (03:41→19:39)
[2021-07-11] MEDS: ARTIFICIAL TEARS OP OINT 3.5 GM TUBE OP SCH ×6 (03:41→21:45)
[2021-07-11] MEDS: MIDAZOLAM HCL 125 MG/250 ML BAG IV SCH ×2 (03:41→18:33)
[2021-07-11 03:42] LABS: iSTAT Art Bld Gas pCO2 Correct 43 mmHg (35-46); iSTAT Art Bld Gas pH Corrected 7.449 (7.35-7.45); iSTAT Arterial Blood Gas HCO3 30 meg/L (19-24); iSTAT Arterial Blood Gas pCO2 43 mmHg (35-46); iSTAT Arterial Blood Gas pH 7.45 (7.35-7.45); iSTAT Arterial Blood Gas pO2 85 mmHg (80-95); iSTAT Arterial Blood Gas pO2 C 86; iSTAT Carbon Dioxide 31 mmol/L (24-31); iSTAT FiO2 50 %; iSTAT Hematocrit 38 % (42-52); iSTAT Hemoglobin 12.9 g/dl (14.0-18.0); iSTAT Potassium 4.5 mmol/L (3.3-5.0); iSTAT Site Art Line; iSTAT Sodium 133 mmol/L (135-144)
[2021-07-11 06:42] LABS: BUN Creatinine Ratio 48.1 (10-20); Calcium 7.9 mg/dl (8.5-10.1); Creatinine Clr Calc Pharmacy 161.4 ml/min; Est GFR (African American) 142.9 ml/min; Est GFR (Non-African American) 123.3 ml/min; Magnesium 2.3 mg/dl (1.7-2.4); Phosphorus 2.4 mg/dl (2.5-4.9); Potassium 4.2 mmol/L (3.5-5.1)
[2021-07-11] MEDS: fentaNYL citrate 2,500 MCG/250 ML BAG IV SCH ×4 (06:45→21:33)
[2021-07-11] MEDS ORDERED: SODIUM PHOSPHATE 3 MMOL/1 ML INFUSION IV STA (07:56)
--- NOTE | 2021-07-11 08:34 | XRay Report ---
XR chest 1V portable HISTORY: Respiratory distress. Follow-up. COMPARISON: Chest 07/10/2021. FINDINGS: No pneumothorax. No pleural effusions. Cardiac silhouette remains top normal in size. Lines and tubes remain unchanged in position. Patchy bilateral airspace opacities persist and are consiste nt with a viral pneumonia. IMPRESSION: 1. Satisfactory support line placement. 2. No change in the patchy bilateral airspace opacities consistent with a viral pneumonia. ACT 112: Negative or not required by law. Electronically signed by: Henrique Melendez M.D. 07/11/2021 8:33 AM
[2021-07-11] MEDS: ICU ELECTROLYTE REPLACEMENT PROTOCOL SCH ×2 (08:35→16:55)
[2021-07-11] MEDS: dexAMETHasone 10 MG in SYRINGE 0 ML IV SCH (08:35)
[2021-07-11] MEDS: ENOXAPARIN INJ 40 MG/0.4 ML SYR SQ SCH (08:38)
[2021-07-11] MEDS: MULTI VIT W/MINERALS LIQUID 15 ML UDP NG SCH (08:38)
[2021-07-11] MEDS ORDERED: SODIUM PHOSPHATE 15 MMOL in DEXTROSE 5% 250 ML IV ONE (09:00)
[2021-07-11] MEDS: PANTOprazole 40 MG in SYRINGE 0 ML IV SCH (11:33)
--- NOTE | 2021-07-11 12:07 | Critical Care Progress Note ---
Date of Service July 11, 2021 Assessment & Plan (1) Acute hypoxemic respiratory failure: (2) Bilateral pneumonia: (3) Pneumonia due to COVID-19 virus: (4) Hemoptysis: Plan: CT chest 07/03/2021 personally reviewed: Diffuse alveolar opacities appreciated bilaterally more on the right side Mild mediastinal lymphadenopathy Significantly worsened compared to the CT chest done on 07/02/2021 Reason Critically Ill: 50-year-old male presented to the hospital with complaints of shortness of breath. Was found to be COVID-19 positive Was on high flow and required more noninvasive support. Intubated 07/08 Neuro - Anesthetic: Fentanyl Sedatives: Low-dose Versed Paralytics: Nimbex discontinued. We will continue vecuronium pushes every 2 as needed for ventilator synchrony. Cardiac - Continue to maintain mean arterial pressures above 65 mmHg with as needed Levophed. Respiratory - --Acute hypoxic respiratory failure with ARDS Secondary to multilobar COVID-19 pneumonia Intubated 07/08/2021 COVID-19 PCR positive 07/03/2021 CRP 13.36 Procalcitonin 0.23 S/p Tocilizumab 07/04/2021 GI - --Transaminitis Likely from COVID-19 Trending down Continue to monitor Tube feeds initiated. RENAL/LYTES - Monitor BUN/creatinine Replace electrolytes as per protocol ENDO - ICU hyperglycemia protocol HEME - No acute events ID - --COVID-19 pneumonia Continue with dexamethasone S/p Tocilizumab 07/04/2021 No signs of bacterial infection at this time, but will repeat sputum cultures and procal --Prophylaxis VTE: Lovenox GI: Protonix Lines: Right IJ, left radial, positive ETT CRITICAL CARE TIME - I have personally spent 36 minutes of critical care time in the direct management of this patient. This is a life/limb threatening event. This includes time spent evaluating patient, direct bedside care, chart review, placing orders, interpretation of diagnostic studies, discussion with consultants, patient, and family members, as well as other required patient management activities. This time is exclusive of all separately billable procedures, and teaching time and separate from and in addition to any other critical care service time. Admission and Anticipated Discharge Date Admission Date: July 03, 2021 Subjective Patient seen and examined. Per nursing, he does follow commands intermittently when fentanyl and Versed infusions are decreased. No significant events overnight. Remains on low doses of Levophed to maintain mean arterial pressures above 65 mmHg. Currently on 50% FiO2 and a PEEP of 5. Review of Systems Review of Systems: Unobtainable due to endotracheal tube Physical Exam Physical Exam: Constitutional: No acute distress HEENT: ET tube in place. No obvious deformities. Respiratory system: Decreased air entry bilaterally, no wheeze, rhonchi, positive crackles bilaterally CVS: S1-S2 positive, no murmurs or gallops Abdomen: Soft, nontender, nondistended, positive bowel sounds x4 Extremities: +2 pulses bilaterally radialis/ dorsalis pedis, no cyanosis, no edema Neuro: Sedated Psych: Unable to assess G/U: Positive Harris Skin: no rashes, warm and dry Results & Data Results & Data ([facility]) Vital Signs (Past 12 Hours) Vital Signs Temp Pulse Resp BP Pulse Ox 07/11/21 10:41 60 22 89 L 07/11/21 07:22 73 23 90 07/11/21 06:00 37.3 C 60 22 104/64 93 07/11/21 05:00 37.5 C 62 22 125/80 90 07/11/21 04:00 37.4 C 60 22 114/68 93 07/11/21 03:30 62 28 H 89 L 07/11/21 03:00 37.3 C 61 97/84 L 93 07/11/21 02:00 37.4 C 61 22 112/67 93 07/11/21 01:00 37.4 C 59 L 22 109/67 93 Coding Level of Care Code Critical Care 1st 30-74 mins Diagnoses Acute hypoxemic respiratory failure J96.01 Bilateral pneumonia J18.9 Pneumonia due to COVID-19 virus U07.1; J12.82 Hemoptysis R04.2 Time Spent (min) 36
--- NOTE | 2021-07-11 16:36 | Hospitalist Progress Note ---
Date of Service July 11, 2021 Assessment & Plan (1) Acute hypoxemic respiratory failure: Plan: Acute respiratory failure with hypoxia Multifocal pneumonia due to COVID-19 virus COVID Screen:Positive CT Chest:Marked interval worsening of interstitial and alveolar groundglass opacities representing Covid pneumonia. Unvaccinated State Symptoms Onset: 3 weeks ago Procalcitonin: 0.23,CRP:14.4 Sputum culture is growing moderate normal ethel and blood cultures are negative Received Tocilizumab,Continue dexamethasone Also on azithromycin Appreciate pulmonology input and recommendation Feels better but he still requires high flow oxygen to maintain saturation Remains in positive balance cannot keep Lasix regularly due to low blood pressure We will continue current management and Lasix will be given when the blood pressure was up systolic more than 100 Clinically stable and feels a little better but is still requiring high flow oxygen We will give another dose of intravenous Lasix today Condition deteriorated and required urgent mechanical ventilation Remains stable on ventilator we will transfer the patient to ICU for continued care Remains ventilated and sedated-management as per general science teacher Condition remains stable and requiring very minimal dose of pressor present to maintain blood pressure Likely to be transferred to ICU Constipation Continue bowel regimen Advance diet as tolerated Transaminitis Secondary to CVOID Monitor -remains stable on recheck Steroid-induced hyperglycemia Prediabetes HbA1C:5.7 Anxiety/depression Has been on Lexapro at home Holding Lexapro to avoid any drug interaction and QT prolongation Has been able to tolerate CPAP or BiPAP Medications on hold DVT Px:SCDs Re: Hemoptysis Has been on Lovenox Code Status Full code Discussed with the in detail on 07/08/2021 Call the without any response but she has been updated by the nursing staff Admission and Anticipated Discharge Date Admission Date: July 03, 2021 Subjective 07/05/2021 The patient was seen and examined in telemetry unit and in the COVID room He has been feeling a little better Still requiring high flow oxygen to maintain saturation at a rate of 40 L with 80% FiO2 Denies any fever and/or chills, any nausea and/or vomiting 07/06/2021 The patient was seen and examined in telemetry unit and in the COVID room He has been feeling better but he still requires 40 L at 70% FiO2 to maintain saturation Denies any significant cough and shortness of breath at rest 07/07/2021 The patient was seen and examined in telemetry unit and in the COVID room He remained stable and is still requiring high flow oxygen to maintain saturation We will continue current management including intravenous Lasix to avoid intubation 07/08/2021 The patient was seen and examined in telemetry unit and in the [facility] room His condition deteriorated this morning and required urgent mechanical ventilati on He remains sedated on ventilator during examination 07/09/2021 The patient was seen and examined in telemetry unit and in the [facility] room He remains intubated and on prone position during examination Remains stable and sedated 07/10/2021 The patient was seen and examined in telemetry unit and in the [facility] room He remains intubated and sedated 07/11/2021 The patient was seen and examined in telemetry unit and in the [facility] room He remains intubated and sedated Review of Systems Review of Systems: All systems reviewed and are unremarkable except as noted below Respiratory: Minimal shortness of breath at rest Neurologic: Alert, awake and oriented x3. Generally very weak and lethargic Physical Exam Physical Exam: Remains sedated on mechanical ventilator Constitutional: well developed, well nourished, + ill appearing and + obese Eyes: PERRL, conjunctivae normal, anicteric sclerae ENMT: external ear and nose normal, oropharynx normal Neck: trachea midline, no thyromegaly Respiratory: no respiratory distress Auscultation: + diminished lung sounds Cardiovascular: Rate/Rhythm: regular rate and regular rhythm; not tachycardic Heart Sounds: normal S1 and normal S2; no murmur Extremities: + edema (Trace edema bilaterally) Gastrointestinal (Abdomen): Inspection/Auscultation: abdomen not distended Percussion/Palpation: abdomen soft; abdomen nontender Neurologic: Remains sedated Results & Data Results & Data ([facility]) Vital Signs (Past 12 Hours) Vital Signs Temp Pulse Resp BP Pulse Ox 07/11/21 14:29 88 24 91 07/11/21 14:15 70 07/11/21 10:41 60 22 89 L 07/11/21 08:00 62 07/11/21 07:22 73 23 90 07/11/21 06:00 37.3 C 60 22 104/64 93 07/11/21 05:00 37.5 C 62 22 125/80 90 Laboratory Results [facility] 07/11/21 05:20 Sodium 133 L Potassium 4.2 Chloride 99 Carbon Dioxide 29 BUN 26 H Creatinine 0.54 L Glucose 108 H Calcium 7.9 L Medications Administered Current Inpatient Medications Benzonatate (Benzonatate 100 Mg Capsule) 100 mg PO TID [facility] Stop: 08/03/21 08:59 Last Admin: 07/10/21 08:04 Dose: Not Given Documented by: Docusate Sodium (Docusate Sodium 100 Mg Cap) 100 mg PO BID PRN PRN Reason: Constipation Stop: 08/03/21 08:59 Enoxaparin Sodium (Enoxaparin Inj 40 Mg/0.4 Ml Syr) 40 mg SQ QAM [facility] Stop: 08/04/21 08:59 Last Admin: 07/11/21 08:38 Dose: 40 mg Documented by: Fentanyl Citrate (Fentanyl Bolus From Bag) 50 mcg IV Q60M PRN PRN Reason: Pain or Agitation Stop: 07/22/21 10:58 Last Admin: 07/10/21 14:51 Dose: 50 mcg Documented by: Pantoprazole Sodium 40 mg/ (Syringe) 10 mls @ 5 mls/min IV DAILY@1100 [facility] Stop: 08/04/21 10:59 Last Admin: 07/11/21 11:33 Dose: 5 mls/min Documented by: Fentanyl Citrate (Fentanyl Citrate) 2,500 mcg in 250 mls @ 17.5 mls/hr IV .[id number] [facility]; Protocol Stop: 07/22/21 10:59 Last Admin: 07/11/21 06:45 Dose: 175 mcg/hr, 17.5 mls/hr Documented by: Norepinephrine Bitartrate (Levophed/D5w) 8 mg in 508 mls @ 0 mls/hr IV .Q0M [facility]; Protocol Stop: 08/07/21 13:14 Last Titration: 07/11/21 11:55 Dose: 0 mcg/kg/min, 0 mls/hr Documented by: Midazolam HCl (Versed) 125 mg in 250 mls @ 6 mls/hr IV .[id number] [facility]; Protocol Stop: 08/07/21 18:29 Last Titration: 07/11/21 08:45 Dose: 3 mg/hr, 6 mls/hr Documented by: Dexamethasone 6 mg/ Syringe 1.5 mls @ 1 mls/min IV DAILY [facility] Stop: 07/13/21 09:02 Ipratropium Sumner (Ipratropium Sumner Neb Soln 0.02% 2.5 Ml Vial) 0.5 mg INH Q4H PRN PRN Reason: SOB, WHEEZE Stop: 08/03/21 02:42 Last Admin: 07/04/21 06:09 Dose: 0.5 mg Documented by: Levalbuterol HCl (Levalbuterol 1.25mg/0.5ml Neb) 1.25 mg INH Q4H PRN PRN Reason: SOB, WHEEZE Stop: 08/03/21 02:02 Last Admin: 07/04/21 06:09 Dose: 1.25 mg Documented by: Midazolam HCl (Midazolam Bolus From Bag) 2 mg IV Q60M PRN PRN Reason: Sedation Stop: 08/07/21 18:19 Last Admin: 07/10/21 14:51 Dose: 2 mg Documented by: Miscellaneous (Icu Electrolyte Replacement Protocol) 1 ea N/A BID@ [facility]; Protocol Stop: 07/17/21 17:59 Last Admin: 07/11/21 08:35 Dose: 1 ea Documented by: Multi-Ingredient Cream (Artificial Tears Op Oint 3.5 Gm Tube) 1 appln OP Q4H [facility] Stop: 08/07/21 09:44 Last Admin: 07/11/21 13:56 Dose: Not Given Documented by: Multivitamins/Minerals (Multi Vit W/Minerals Liquid 15 Ml Udp) 15 ml NG QAM [facility] Stop: 08/10/21 08:59 Last Admin: 07/11/21 08:38 Dose: 15 ml Documented by: Nutritional Formula (Peptamen Intense Vhp 1.0 Keo 1,000 Ml Bag) 1,000 ml OG UD [facility]; Protocol Stop: 08/09/21 11:59 Last Admin: 07/10/21 13:18 Dose: 1,000 ml Documented by: Ondansetron HCl (Ondansetron Inj 2 Mg/Ml 2 Ml Vial) 4 mg IV Q4H PRN PRN Reason: Nausea Stop: 08/04/21 06:07 Last Admin: 07/08/21 07:52 Dose: 4 mg Documented by: Polyethylene Glycol (Polyethylene (Miralax) 17 Gm Pack) 17 gm PO DAILY PRN PRN Reason: Constipation Stop: 08/03/21 08:19 Sterile Water (Tube Feeding Water Flush) 30 ml OG Q4H [facility] Stop: 08/09/21 11:59 Last Admin: 07/11/21 13:24 Dose: 30 ml Documented by: Vecuronium Sumner (Vecuronium Sumner 10 Mg Vial) 6.4 mg 0.1 mg/kg (6.4 mg) IV Q2H PRN PRN Reason: SEE LABEL COMMENTS Stop: 08/09/21 10:14
[2021-07-11] MEDS: PEPTAMEN INTENSE VHP 1.0 CAL 1,000 ML BAG OG SCH (18:34)
[2021-07-12] MEDS: TUBE FEEDING WATER FLUSH OG SCH ×5 (00:21→13:57)
[2021-07-12] MEDS: NOREPINEPHRINE/D5W 8 MG/508 ML BAG IV SCH ×2 (00:27→07:09)
[2021-07-12] MEDS: ARTIFICIAL TEARS OP OINT 3.5 GM TUBE OP SCH ×4 (01:45→13:57)
[2021-07-12 03:44] LABS: iSTAT Art Bld Gas pCO2 Correct 43 mmHg (35-46); iSTAT Art Bld Gas pH Corrected 7.441 (7.35-7.45); iSTAT Arterial Blood Gas HCO3 29 meg/L (19-24); iSTAT Arterial Blood Gas pCO2 42 mmHg (35-46); iSTAT Arterial Blood Gas pH 7.45 (7.35-7.45); iSTAT Arterial Blood Gas pO2 54 mmHg (80-95); iSTAT Arterial Blood Gas pO2 C 56; iSTAT Carbon Dioxide 30 mmol/L (24-31); iSTAT FiO2 45 %; iSTAT Hematocrit 40 % (42-52); iSTAT Hemoglobin 13.6 g/dl (14.0-18.0); iSTAT Site Art Line; iSTAT Sodium 134 mmol/L (135-144)
[2021-07-12 06:36] LABS: BUN Creatinine Ratio 43.6 (10-20); Calcium 7.7 mg/dl (8.5-10.1); Creatinine Clr Calc Pharmacy 158.8 ml/min; Est GFR (African American) 141.8 ml/min; Est GFR (Non-African American) 122.4 ml/min; Magnesium 2.2 mg/dl (1.7-2.4); Phosphorus 2.2 mg/dl (2.5-4.9); Potassium 3.9 mmol/L (3.5-5.1)
[2021-07-12] MEDS: ICU ELECTROLYTE REPLACEMENT PROTOCOL SCH ×2 (06:40→18:15)
--- NOTE | 2021-07-12 07:32 | XRay Report ---
XR chest 1V portable CLINICAL HISTORY: Follow-up airspace opacities. COMPARISON STUDY: 07/11/2021 TECHNIQUE: 1 view of the chest FINDINGS: Single frontal view of the chest demonstrates the cardiomediastinal silhouette to be within normal li mits. Tubes and catheters are unchanged. Compared to previous examination, there is slight interval i mprovement of bilateral interstitial and alveolar opacities. No new confluent alveolar opacities or a ir bronchograms are seen. There is no evidence for pleural effusion. There is no evidence for vascula r congestion. There is no acute osseous pathology. IMPRESSION: Slight interval improvement in bilateral interstitial and alveolar opacities. ACT 112: Negative or not required by law. Electronically signed by: Carlos Cruz M.D. 07/12/2021 7:31 AM
[2021-07-12] MEDS: dexAMETHasone 6 MG in SYRINGE 0 ML IV SCH (08:16)
[2021-07-12] MEDS: PANTOprazole 40 MG in SYRINGE 0 ML IV SCH (08:16)
[2021-07-12] MEDS: MULTI VIT W/MINERALS LIQUID 15 ML UDP NG SCH (08:17)
[2021-07-12] MEDS ORDERED: VANCOMYCIN HCL 1,500 MG in SODIUM CHLORIDE 0.9% 500 ML IV ONE (09:11)
[2021-07-12] MEDS ORDERED: VANCOMYCIN CONSULT ACTIVE PRN ×2 (09:11→09:12)
[2021-07-12] MEDS ORDERED: VANCOMYCIN HCL 1,250 MG in SODIUM CHLORIDE 0.9% 500 ML IV SCH (09:15)
--- NOTE | 2021-07-12 10:17 | Critical Care Progress Note ---
Date of Service July 12, 2021 Assessment & Plan (1) Acute hypoxemic respiratory failure: (2) Bilateral pneumonia: (3) Pneumonia due to COVID-19 virus: (4) Hemoptysis: Plan: Reason Critically Ill: 50-year-old male presented to the hospital with complaints of shortness of breath. Was found to be COVID-19 positive. Was on high flow and required more noninvasive support. Intubated 07/08 Neuro - Extubated. Will minimize sedation as able. Cardiac - No hemodynamic issues while off sedation. Respiratory - --Acute hypoxic respiratory failure with ARDS Secondary to multilobar COVID-19 pneumonia Intubated 07/08/2021. Extubated 07/12/2021. COVID-19 PCR positive 07/03/2021 S/p Tocilizumab 07/04/2021 GI - We will need swallow evaluation by speech. Mild transaminitis seen which is improving. RENAL/LYTES - Monitor BUN/creatinine Replace electrolytes as per protocol ENDO - ICU hyperglycemia protocol HEME - Stable ID - --COVID-19 pneumonia Continue with dexamethasone S/p Tocilizumab 07/04/2021 Staph species growing from sputum. Vancomycin started 07/12. MRSA screen pending. --Prophylaxis VTE: Lovenox GI: Protonix Lines: Right IJ, left radial. Can remove IJ and radial arterial line. Discussed on multidisciplinary rounds. CRITICAL CARE TIME - I have personally spent 32 minutes of critical care time in the direct management of this patient. This is a life/limb threatening event. This includes time spent evaluating patient, direct bedside care, chart review, placing orders, interpretation of diagnostic studies, discussion with consultants, patient, and family members, as well as other required patient management activities. This time is exclusive of all separately billable procedures, and teaching time and separate from and in addition to any other critical care service time. Admission and Anticipated Discharge Date Admission Date: July 03, 2021 Subjective Patient following commands today on spontaneous breathing trial. Very well with sedation vacation. Patient was extubated to high flow oxygen mask. Review of Systems Review of Systems: All systems reviewed & are unremarkable except as noted in HPI & below Physical Exam Physical Exam: Constitutional: No acute distress HEENT: ET tube in place. No obvious deformities. Respiratory system: Decreased air entry bilaterally, no wheeze, rhonchi, positive crackles bilaterally CVS: S1-S2 positive, no murmurs or gallops Abdomen: Soft, nontender, nondistended, positive bowel sounds x4 Extremities: +2 pulses bilaterally radialis/ dorsalis pedis, no cyanosis, no edema Neuro: Following commands. Moves all limbs spontaneously. Psych: Unable to assess G/U: Positive Harris Skin: no rashes, warm and dry Results & Data Results & Data ([facility]) Vital Signs (Past 12 Hours) Vital Signs Temp Pulse Resp BP Pulse Ox 07/12/21 08:41 14 90 07/12/21 07:45 64 22 94 07/12/21 04:00 139/69 07/12/21 03:30 91 H 24 90 07/12/21 01:00 37.3 C 57 L 22 135/82 92 07/12/21 00:00 37.3 C 63 22 104/57 L 90 07/11/21 23:00 37.2 C 66 22 114/61 88 L 07/11/21 22:25 57 L 22 91 Coding Level of Care Code Critical Care 1st 30-74 mins Diagnoses Acute hypoxemic respiratory failure J96.01 Bilateral pneumonia J18.9 Pneumonia due to COVID-19 virus U07.1; J12.82 Hemoptysis R04.2 Time Spent (min) 32
--- NOTE | 2021-07-12 10:23 | Pharmacy Report ---
Pharmacy Vanc AUC Short Note - Date of Service July 12, 2021 - Assessment & Plan Assessment 50 year old M receiving vancomycin for treatment of pulmonary infection. 07/11 sputum culture (+) Staph spp. MRSA nasal pending. Extubated this AM. Renal function stable. Day #1 of antimicrobial therapy. Plan Vancomycin * AUC/HERNANDO is the preferred PK/PD target for vancomycin * AUC guided dosing is effective and associated with decreased risk of nephrotoxicity compared to traditional trough targets * Trough level of 16.2 mcg/mL is predicted to achieve target AUC/HERNANDO of 400-600 mg/L.hr and may be associated with a 12 % risk of nephrotoxicity * Begin vancomycin 1500mg IV q12h * Will obtain trough level around steady state for AUC correlation if vancomycin continued. Pharmacy will continue to follow and will adjust dose/frequency as necessary. Thank you.
[2021-07-12] MEDS: ENOXAPARIN INJ 40 MG/0.4 ML SYR SQ SCH (10:55)
[2021-07-12] MEDS: VANCOMYCIN HCL 1,500 MG in SODIUM CHLORIDE 0.9% 500 ML IV SCH (15:44)
[2021-07-12] MEDS: CISATRACURIUM BESYLATE 40 MG in DEXTROSE 5% 80 ML IV SCH ×2 (16:26→16:27)
--- NOTE | 2021-07-12 18:07 | Hospitalist Progress Note ---
Date of Service July 12, 2021 Assessment & Plan (1) Acute hypoxemic respiratory failure: Plan: Acute hypoxic respiratory failure with ARDS Multifocal pneumonia due to COVID-19 virus COVID Screen:Positive CT Chest:Marked interval worsening of interstitial and alveolar groundglass opacities representing Covid pneumonia. Unvaccinated State Symptoms Onset: 3 weeks ago Procalcitonin: 0.23,CRP:14.4 Received Tocilizumab Condition deteriorated and required mechanical ventilation 07/08/21 S/P mechanical ventilation and extubated this morning (07/12/21) Sputum culture grew staphylococcus species. MRSA testing positive Started on Vancomycin Will consider ID consult Continue dexamethasone He has been off pressors and sedation Ok from hr assistant to transfer out of the ICU Constipation Continue bowel regimen Advance diet as tolerated Transaminitis Secondary to COVID 19 LFT are trending down Steroid-induced hyperglycemia Prediabetes HbA1C:5.7 Anxiety/depression Has been on Lexapro at home Holding Lexapro to avoid any drug interaction and QT prolongation Has been able to tolerate CPAP or BiPAP Medications on hold DVT Px:SCDs Re: Hemoptysis Has been on Lovenox Code Status Full code Disposition Will transfer out of the ICU Admission and Anticipated Discharge Date Admission Date: July 03, 2021 Subjective Patient was seen and examined for follow-up of shortness of breath status post extubation this morning, currently on 4L NC oxygen Pt said that he is afraid because he has MRSA Denies any chest pain, palpitation, dizziness and fever Review of Systems Review of Systems: All systems reviewed & are unremarkable except as noted in Subjective Physical Exam Physical Exam: General- No acute distress Head- atraumatic Eyes- PERRL, EOMI, ENT- oropharynx clear Neck- supple, no JVD Lungs +diminished BS Heart- regular rhythm; no murmur Abdomen- normal bowel sounds, soft, nontender Extremities- no calf tenderness Neuro- alert, oriented,PERRL, EOMI; no facial palsy; no dysarthria Skin- warm & dry Results & Data Results & Data ([facility]) Vital Signs (Past 12 Hours) Vital Signs Temp Pulse Resp BP Pulse Ox 07/12/21 15:00 37.5 C 94 H 25 H 94 07/12/21 14:52 37.5 C 97 H 21 117/74 92 07/12/21 14:00 37.5 C 102 H 31 H 93 07/12/21 13:52 37.5 C 105 H 17 123/78 90 07/12/21 13:00 37.6 C H 95 H 22 92 07/12/21 12:52 37.6 C H 97 H 30 H 126/82 96 07/12/21 12:00 37.6 C H 99 H 37 H 95 07/12/21 11:52 37.6 C H 99 H 16 123/76 96 07/12/21 11:27 126 H 125/62 07/12/21 11:00 37.6 C H 100 H 23 94 07/12/21 10:52 37.6 C H 117 H 23 122/75 91 07/12/21 10:00 37.6 C H 126 H 21 89 L 07/12/21 09:52 37.5 C 111 H 24 120/70 89 L 07/12/21 09:00 37.3 C 101 H 21 91 07/12/21 08:52 37.2 C 100 H 15 113/72 91 07/12/21 08:41 14 90 07/12/21 08:33 37.2 C 107 H 18 126/79 89 L 07/12/21 08:00 37.1 C 72 19 99/53 L 91 07/12/21 07:52 37.1 C 90 26 H 117/84 92 07/12/21 07:45 64 22 94 07/12/21 07:00 37.1 C 59 L 22 93 07/12/21 06:52 37.2 C 60 22 120/72 94 07/12/21 06:45 37.2 C 65 22 94
[2021-07-12] MEDS ORDERED: ACETAMINOPHEN 1,000 MG/100 ML VIAL IV STA (20:32)
[2021-07-13] MEDS: VANCOMYCIN HCL 1,500 MG in SODIUM CHLORIDE 0.9% 500 ML IV SCH ×2 (04:03→16:23)
[2021-07-13 05:49] LABS: Albumin Level 3.2 gm/dl (3.4-5.0); BUN Creatinine Ratio 39.6 (10-20); Bilirubin Direct 0.3 mg/dl (0-0.2); Calcium 8.3 mg/dl (8.5-10.1); Est GFR (Non-African American) 129.4 ml/min; Magnesium 2.3 mg/dl (1.7-2.4); Phosphorus 3.4 mg/dl (2.5-4.9); Potassium 4.3 mmol/L (3.5-5.1); Total Protein 5.6 gm/dl (6.0-8.3)
[2021-07-13] MEDS ORDERED: KETOROLAC TROMETHAMINE 15 MG/ML VIAL IV ONE (08:38)
[2021-07-13] MEDS: dexAMETHasone 6 MG in SYRINGE 0 ML IV SCH (09:06)
[2021-07-13] MEDS: ENOXAPARIN INJ 40 MG/0.4 ML SYR SQ SCH (09:06)
[2021-07-13] MEDS: MULTI VIT W/MINERALS LIQUID 15 ML UDP NG SCH ×2 (09:06→09:23)
[2021-07-13] MEDS: PANTOprazole 40 MG in SYRINGE 0 ML IV SCH (11:26)
[2021-07-13] MEDS: ONDANSETRON INJ 2 MG/ML 2 ML VIAL IV PRN (14:54)
[2021-07-13] MEDS: traMADol HCL 50 MG TABLET PO PRN ×2 (16:23→22:30)
--- NOTE | 2021-07-13 18:16 | Hospitalist Progress Note ---
Date of Service July 13, 2021 Assessment & Plan (1) Acute hypoxemic respiratory failure: Plan: Acute hypoxic respiratory failure with ARDS Multifocal pneumonia due to COVID-19 virus COVID Screen:Positive CT Chest:Marked interval worsening of interstitial and alveolar groundglass opacities representing Covid pneumonia. Unvaccinated [place] Symptoms Onset: 3 weeks ago Procalcitonin: 0.23,CRP:14.4 Received Tocilizumab Condition deteriorated and required mechanical ventilation 07/08/21 S/P mechanical ventilation and extubated on 07/12/21 Sputum culture grew staphylococcus species. MRSA testing positive Pt was starting on Vancomycin ID was consulted and recommended to PO Bactrim and Doxycycline to complete a total of 7 days course Completed 10 days course dexamethasone He has been off pressors and sedation Incentive spirometry and flutter valve Clinically stable Constipation Continue bowel regimen Advance diet as tolerated Transaminitis Secondary to COVID 19 LFT worsening with AST 80 and ALT 247 If LFT continue to get worst, will get an U/S Steroid-induced hyperglycemia Prediabetes HbA1C:5.7 Anxiety/depression Has been on Lexapro at home Holding Lexapro to avoid any drug interaction and QT prolongation Has been able to tolerate CPAP or BiPAP Medications on hold Will resume lexapro Consider to add a low dose Benzo DVT Px:SCDs Re: Hemoptysis Has been on Lovenox Code Status Full code Disposition Will discharge once medically stable Admission and Anticipated Discharge Date Admission Date: July 03, 2021 Subjective Patient was seen and examined for follow-up of shortness of breath Lying in bed with no acute distress Pt said that he feels his breathing seems to get a little worst because he is on 6L oxygen from 4L yesterday Spoke to outside his room and provided with update Denies any chest pain, palpitation, dizziness and fever Review of Systems Review of Systems: All systems reviewed & are unremarkable except as noted in Subjective Physical Exam Physical Exam: General- No acute distress Head- atraumatic Eyes- PERRL, EOMI, ENT- oropharynx clear Neck- supple, no JVD Lungs +diminished BS Heart- regular rhythm; no murmur Abdomen- normal bowel sounds, soft, nontender Extremities- no calf tenderness Neuro- alert, oriented,PERRL, EOMI; no facial palsy; no dysarthria Skin- warm & dry Results & Data Results & Data ([facility]) Vital Signs (Past 12 Hours) Vital Signs Temp Pulse Resp BP Pulse Ox 07/13/21 15:30 95 H 07/13/21 08:00 36.2 C L 96 H 33 H 118/75 93 07/13/21 07:00 36.3 C L 90 32 H 118/75 93
[2021-07-13] MEDS: MELATONIN 3 MG TAB PO PRN (21:52)
[2021-07-13] MEDS ORDERED: LORazepam 0.5 MG TAB PO PRN ×2 (23:47→23:49)
[2021-07-14] MEDS: ACETAMINOPHEN 325 MG TAB PO PRN (01:43)
[2021-07-14] MEDS ORDERED: COUGH DROP (SUGAR FREE) LOZ 24 LOZ/1 BOX BUCCAL ONE (01:48)
[2021-07-14] MEDS ORDERED: COUGH DROP (SUGAR FREE) LOZ 24 LOZ/1 BOX BUCCAL PRN ×2 (02:06→02:34)
[2021-07-14] MEDS ORDERED: VANCOMYCIN TROUGH ONE (03:30)
[2021-07-14] MEDS: VANCOMYCIN HCL 1,500 MG in SODIUM CHLORIDE 0.9% 500 ML IV SCH ×3 (04:21→20:41)
[2021-07-14 04:24] LABS: Albumin Globulin Ratio 1.3 (0.9-2); Albumin Level 3.2 gm/dl (3.4-5.0); Calcium 8.4 mg/dl (8.5-10.1); Creatinine Clr Calc Pharmacy 146.6 ml/min; Est GFR (African American) 141.8 ml/min; Est GFR (Non-African American) 122.4 ml/min; Globulin 2.5 gm/dl (2.5-4.0); Magnesium 2.4 mg/dl (1.7-2.4); Phosphorus 3.8 mg/dl (2.5-4.9); Potassium 4.1 mmol/L (3.5-5.1); Total Protein 5.7 gm/dl (6.0-8.3)
[2021-07-14] MEDS: ENOXAPARIN INJ 40 MG/0.4 ML SYR SQ SCH (07:49)
[2021-07-14] MEDS: MULTI VIT W/MINERALS LIQUID 15 ML UDP NG SCH (07:49)
[2021-07-14] MEDS: LORazepam 0.5 MG TAB PO PRN (12:29)
--- NOTE | 2021-07-14 12:42 | Pharmacy Report ---
Pharmacy [facility] Short Note - Date of Service July 14, 2021 - Assessment & Plan Assessment 50 year old M receiving vancomycin for treatment of MRSA pneumonia. Sputum culture (+) MRSA, MRSA nasal (+). Renal function stable (UOP not excessively high). Day # 3 of antimicrobial therapy. Plan Vancomycin * Trough level this AM drawn appropriately (~ 12hr level), and significantly subtherapeutic (less than 3mcg/mL). All previous doses charted as administered. * Unclear why level virtually undetectable while receiving 1500mg IV q12h (possible dose prepared incorrectly?). Will order a random level prior to this evening's dose to assess if there is a rise (and not to unsafe level), and plan for true trough in AM. * Dose adjusted to 1500mg IV q8h (Insight predicts 1250 q6h for 98% probability AUC 400-600mg/L.hr.) * Trough level of 12.2 mcg/mL is predicted to achieve target AUC/HERNANDO of 400- 600 mg/L.hr and may be associated with a 7 % risk of nephrotoxicity * Random level prior to this evening's dose AND trough tomorrow AM. * IF tonight's random level is rising (but still subtherapeutic), plan to cont. current dosing w/ a trough in AM. IF random level is >15mcg/mL, re-evaluate dosing regimen. * Vancomycin HERNANDO reported as 2 on sputum culture. Discussed with lab today -- requested sample re-run using turbidity method given that microscan over estimates vancomycin MICs. Will follow up on turbidity results tomorrow. Pharmacy will continue to follow and will adjust dose/frequency as necessary. Thank you.
[2021-07-14] MEDS: ESCITALOPRAM OXALATE 10 MG TAB PO SCH (15:18)
[2021-07-14] MEDS ORDERED: FUROSEMIDE INJ 20 MG/2 ML VIAL IV ONE (17:37)
[2021-07-14] MEDS: MELATONIN 3 MG TAB PO PRN (20:40)
[2021-07-14] MEDS: traMADol HCL 50 MG TABLET PO PRN (20:40)
--- NOTE | 2021-07-14 20:49 | Pharmacy Report ---
Pharmacy [facility] Short Note - Date of Service July 14, 2021 - Assessment & Plan Assessment 50 year old M receiving vancomycin for treatment of MRSA pneumonia. Sputum culture (+) MRSA, MRSA nasal (+). Renal function stable (UOP not excessively high). Day #3 of antimicrobial therapy. Plan Vancomycin * Trough level this evening prior to 2000 dose was 14.8 mcg/mL. Patient was switched to 1500 mg IV every 8 hours this morning and received a dose at 0400 and 1200 today. * Prior trough this AM was undetectable. Given the sharp increase in trough levels, believe that an erroneous lab collection or possibility of empty bag being administered could have played a role in this morning's trough. * Will change patient back to 1500 mg IV every 12 hours starting at midnight on 07/15. * Ordering trough prior to 1200 dose on 07/15 to ensure level is still therapeutic.
--- NOTE | 2021-07-14 22:55 | Hospitalist Progress Note ---
Date of Service July 14, 2021 Assessment & Plan (1) Acute hypoxemic respiratory failure: Plan: Acute hypoxic respiratory failure with ARDS Multifocal pneumonia due to COVID-19 virus COVID Screen:Positive CT Chest:Marked interval worsening of interstitial and alveolar groundglass opacities representing Covid pneumonia. Unvaccinated State Symptoms Onset: 3 weeks ago Procalcitonin: 0.23,CRP:14.4 Received Tocilizumab Condition deteriorated and required mechanical ventilation 07/08/21 S/P mechanical ventilation and extubated on 07/12/21 Sputum culture grew staphylococcus species. MRSA testing positive Pt was starting on Vancomycin ID was consulted and recommended to PO Bactrim and Doxycycline to complete a total of 7 days course Completed 10 days course dexamethasone He has been off pressors and sedation Continue incentive spirometry and flutter valve We will give Lasix 20 mg IV x1 Clinically stable Constipation Continue bowel regimen Advance diet as tolerated Transaminitis Secondary to COVID 19 Liver enzymes slightly decreased with AST from 80 to 54 and ALT from 247 to 232 If LFT continue to get worst, will get an U/S Continue monitor LFT Steroid-induced hyperglycemia Prediabetes HbA1C:5.7 Anxiety/depression Has been on Lexapro at home Holding Lexapro to avoid any drug interaction and QT prolongation Has been able to tolerate CPAP or BiPAP Lexapro resume Consider to add a low dose Benzo DVT Px:SCDs Re: Hemoptysis Has been on Lovenox Code Status Full code Disposition Continue PT/OT Will discharge once medically stable Admission and Anticipated Discharge Date Admission Date: July 03, 2021 Subjective Patient was seen and examined for follow-up of shortness of breath Lying in bed with no acute distress Patient has been very anxious He is very anxious to fall asleep because he felt that he will not be able to wake up Denies any chest pain, palpitation, dizziness and fever Review of Systems Review of Systems: All systems reviewed & are unremarkable except as noted in Subjective Physical Exam Physical Exam: General- No acute distress Head- atraumatic Eyes- PERRL, EOMI, ENT- oropharynx clear Neck- supple, no JVD Lungs +diminished BS Heart- regular rhythm; no murmur Abdomen- normal bowel sounds, soft, nontender Extremities- no calf tenderness Neuro- alert, oriented,PERRL, EOMI; no facial palsy; no dysarthria Skin- warm & dry Results & Data Results & Data ([facility]) Vital Signs (Past 12 Hours) Vital Signs Temp Pulse Resp BP Pulse Ox Pulse Ox Pulse Ox 07/14/21 20:52 36.8 C 85 18 92/64 L 94 07/14/21 16:00 79 07/14/21 14:56 93 93 07/14/21 14:41 94 07/14/21 12:00 36.8 C 100 H 33 H 91 07/14/21 11:53 36.1 C L 99 H 29 H 112/65 90 07/14/21 10:52 35.1 C L 91 H 41 H 118/72 92 Pulse Ox 07/14/21 20:52 07/14/21 16:00 07/14/21 14:56 85 L 07/14/21 14:41 07/14/21 12:00 07/14/21 11:53 07/14/21 10:52
[2021-07-15] MEDS ORDERED: VANCOMYCIN HCL 1,500 MG in SODIUM CHLORIDE 0.9% 500 ML IV SCH
[2021-07-15] MEDS ORDERED: VANCOMYCIN TROUGH ONE ×2 (03:30→11:30)
[2021-07-15 06:32] LABS: Albumin Globulin Ratio 1.4 (0.9-2); Albumin Level 3.3 gm/dl (3.4-5.0); Calcium 8.6 mg/dl (8.5-10.1); Creatinine Clr Calc Pharmacy 161.3 ml/min; Est GFR (African American) 147.5 ml/min; Est GFR (Non-African American) 127.3 ml/min; Globulin 2.4 gm/dl (2.5-4.0); Magnesium 2.4 mg/dl (1.7-2.4); Phosphorus 4.2 mg/dl (2.5-4.9); Potassium 3.6 mmol/L (3.5-5.1); Total Protein 5.7 gm/dl (6.0-8.3)
[2021-07-15] MEDS: PROMETHAZINE HCL 12.5 MG in SODIUM CHLORIDE 0.9% 50 ML IV PRN (08:23)
[2021-07-15] MEDS: DOXYCYCLINE HYCLATE 100 MG CAP PO SCH ×2 (08:24→22:15)
[2021-07-15] MEDS: ENOXAPARIN INJ 40 MG/0.4 ML SYR SQ SCH (08:24)
[2021-07-15] MEDS: ESCITALOPRAM OXALATE 10 MG TAB PO SCH (08:24)
[2021-07-15] MEDS: traMADol HCL 50 MG TABLET PO PRN ×2 (08:24→23:34)
[2021-07-15] MEDS: LORazepam 0.5 MG TAB PO PRN (17:45)
--- NOTE | 2021-07-15 20:52 | Hospitalist Progress Note ---
Date of Service July 15, 2021 Assessment & Plan (1) Acute hypoxemic respiratory failure: Plan: Acute hypoxic respiratory failure with ARDS Multifocal pneumonia due to COVID-19 virus COVID Screen:Positive CT Chest:Marked interval worsening of interstitial and alveolar groundglass opacities representing Covid pneumonia. Unvaccinated State Symptoms Onset: 3 weeks ago Procalcitonin: 0.23,CRP:14.4 Received Tocilizumab Condition deteriorated and required mechanical ventilation 07/08/21 S/P mechanical ventilation and extubated on 07/12/21 Sputum culture grew staphylococcus species. MRSA testing positive Pt was starting on Vancomycin ID was consulted and recommended to PO Bactrim and Doxycycline to complete a total of 7 days course Completed 10 days course dexamethasone He has been off pressors and sedation Continue incentive spirometry and flutter valve Continue wean her from the oxygen Clinically stable Constipation Continue bowel regimen Advance diet as tolerated Transaminitis Secondary to COVID 19 Liver enzymes slightly decreased with AST from 80 to 54 and ALT from 247 to 232 If LFT continue to get worst, will get an U/S Continue monitor LFT Steroid-induced hyperglycemia Prediabetes HbA1C:5.7 Anxiety/depression Has been on Lexapro at home Holding Lexapro to avoid any drug interaction and QT prolongation Has been able to tolerate CPAP or BiPAP Lexapro resume Continue low dose of Ativan prn DVT Px:SCDs Re: Hemoptysis Has been on Lovenox Code Status Full code Disposition Continue PT/OT Will discharge once medically stable Admission and Anticipated Discharge Date Admission Date: July 03, 2021 Subjective Patient was seen and examined for follow-up of shortness of breath Lying in bed with no acute distress Breathing is much better today Currently is on 3 L nasal cannula oxygen Denies any chest pain, palpitation, dizziness and fever Review of Systems Review of Systems: All systems reviewed & are unremarkable except as noted in Subjective Physical Exam Physical Exam: General- No acute distress Head- atraumatic Eyes- PERRL, EOMI, ENT- oropharynx clear Neck- supple, no JVD Lungs +diminished BS Heart- regular rhythm; no murmur Abdomen- normal bowel sounds, soft, nontender Extremities- no calf tenderness Neuro- alert, oriented,PERRL, EOMI; no facial palsy; no dysarthria Skin- warm & dry Results & Data Results & Data ([facility]) Vital Signs (Past 12 Hours) Vital Signs Temp Pulse Pulse Resp BP Pulse Ox 07/15/21 19:41 37.4 C 64 19 116/70 94 07/15/21 15:43 36.7 C 77 18 105/72 90 07/15/21 13:02 93 07/15/21 11:23 37.0 C 67 18 107/68 94
[2021-07-16 07:43] LABS: Albumin Globulin Ratio 1.3 (0.9-2); Albumin Level 3.4 gm/dl (3.4-5.0); Calcium 8.8 mg/dl (8.5-10.1); Creatinine Clr Calc Pharmacy 130.1 ml/min; Est GFR (Non-African American) 116.5 ml/min; Globulin 2.6 gm/dl (2.5-4.0); Magnesium 2.4 mg/dl (1.7-2.4); Phosphorus 3.2 mg/dl (2.5-4.9); Potassium 3.8 mmol/L (3.5-5.1)
[2021-07-16] MEDS: DOXYCYCLINE HYCLATE 100 MG CAP PO SCH ×2 (08:15→20:07)
[2021-07-16] MEDS: ESCITALOPRAM OXALATE 10 MG TAB PO SCH (08:15)
[2021-07-16] MEDS: ENOXAPARIN INJ 40 MG/0.4 ML SYR SQ SCH (08:16)
[2021-07-16] MEDS: ACETAMINOPHEN 325 MG TAB PO PRN (08:33)
[2021-07-16] MEDS: LORazepam 0.5 MG TAB PO PRN ×2 (12:12→21:10)
[2021-07-16] MEDS ORDERED: CHLORASEPTIC 1.4% SOLN 180 ML BTL MT PRN (16:16)
--- NOTE | 2021-07-16 16:44 | Hospitalist Progress Note ---
Date of Service July 16, 2021 Assessment & Plan (1) Acute hypoxemic respiratory failure: Plan: Acute hypoxic respiratory failure with ARDS Multifocal pneumonia due to COVID-19 virus COVID Screen:Positive CT Chest:Marked interval worsening of interstitial and alveolar groundglass opacities representing Covid pneumonia. Unvaccinated [place] Symptoms Onset: 3 weeks ago Procalcitonin: 0.23,CRP:14.4 Received Tocilizumab Condition deteriorated and required mechanical ventilation 07/08/21 S/P mechanical ventilation and extubated on 07/12/21 Sputum culture grew staphylococcus species. MRSA testing positive Pt was starting on Vancomycin ID was consulted and recommended PO Bactrim or Doxycycline to complete a total of 7 days course Completed 10 days course dexamethasone He has been off pressors and sedation Continue incentive spirometry and flutter valve Continue wean him from the oxygen Clinically improved Constipation Continue bowel regimen Advance diet as tolerated Transaminitis Secondary to COVID 19 Liver enzymes slightly decreased with AST from 80 to 54 and ALT from 247 to 232 If LFT continue to get worst, will get an U/S Liver enzymes continue to trend down with AST 31, ALT 156 and ALK 127 Continue monitor LFT Steroid-induced hyperglycemia Prediabetes HbA1C:5.7 Anxiety/depression Has been on Lexapro at home Holding Lexapro to avoid any drug interaction and QT prolongation Has been able to tolerate CPAP or BiPAP Continue Lexapro daily Continue low dose of Ativan prn DVT Px:SCDs Re: Hemoptysis Continue Lovenox Code Status Full code Disposition Continue PT/OT Will discharge once medically stable Admission and Anticipated Discharge Date Admission Date: July 03, 2021 Subjective Patient was seen and examined for follow-up of shortness of breath Lying in bed with no acute distress Pt said that he is having burning sensation in his throat Nurse said pt was sitting on the chair today He continues to be very anxious He said that today he was able to eat all the mash potato Denies any chest pain, palpitation, dizziness and fever Review of Systems Review of Systems: All systems reviewed & are unremarkable except as noted in Subjective Physical Exam Physical Exam: General- No acute distress Head- atraumatic Eyes- PERRL, EOMI, ENT- oropharynx clear Neck- supple, no JVD Lungs +diminished BS Heart- regular rhythm; no murmur Abdomen- normal bowel sounds, soft, nontender Extremities- no calf tenderness Neuro- alert, oriented,PERRL, EOMI; no facial palsy; no dysarthria Skin- warm & dry Results & Data Results & Data ([facility]) Vital Signs (Past 12 Hours) Vital Signs Temp Pulse Pulse Resp BP BP Pulse Ox 07/16/21 11:31 36.8 C 75 16 115/73 89 L 07/16/21 09:46 83 07/16/21 07:24 37 C 78 13 103/72 89 L
[2021-07-17] MEDS ORDERED: LORazepam 0.5 MG TAB PO STA (01:52)
[2021-07-17] MEDS: NYSTATIN SUSP 500,000 U/5 ML UDC PO SCH ×5 (02:03→20:05)
[2021-07-17] MEDS: traMADol HCL 50 MG TABLET PO PRN ×2 (04:55→20:04)
[2021-07-17 07:20] LABS: Hematocrit (blood only) 44.6 % (42-52); Hemoglobin 15.5 g/dL (14.0-18.0); Mean Corpuscular Hemoglobin 31.8 pg (25-34); Mean Corpuscular Hgb Conc 34.8 g/dL (32-36); Mean Corpuscular Volume 91.6 fL (80-100); Platelet Count 236 K/uL (130-400); RDW Coefficient of Variation 13.2 % (11.5-14.5); RDW Standard Deviation 43.6 fL (36.4-46.3); Red Blood Count 4.87 M/uL (4.7-6.1)
--- NOTE | 2021-07-17 07:32 | XRay Report ---
AP CHEST WITH LEFT-SIDED RIB SERIES CLINICAL HISTORY: Covid pneumonia. Left-sided chest wall pain FINDINGS: An AP upright chest radiograph with 4 additional views from a left-sided rib series is comp ared to study dated 07/12/2021. Correlation is made with chest CT dated 07/04/2021. An endotracheal tube, an enteric tube, and a right internal jugular central venous catheter have been removed. The cardiom ediastinal silhouette is top normal for projection. Multifocal airspace consolidation is again seen t hroughout both lungs. This has modestly worsened as compared to 07/12/2021. There are small pleural eff usions. No pneumothorax is seen. There is no radiographic evidence of acute/displaced left-sided rib fracture on the rib series. The remainder of the bony thorax is grossly intact. IMPRESSION: 1. Multifocal airspace consolidation has modestly worsened as compared to the 07/12/2021 examination. 2. Small pleural effusions. 3. There is no radiographic evidence of acute/displaced left-sided rib fracture on the rib series. ACT 112: Negative or not required by law. Electronically signed by: Tony Varner M.D. 07/17/2021 7:31 AM
[2021-07-17 07:47] LABS: Albumin Globulin Ratio 1.5 (0.9-2); Albumin Level 3.5 gm/dl (3.4-5.0); BUN Creatinine Ratio 47.4 (10-20); Calcium 8.7 mg/dl (8.5-10.1); Creatinine Clr Calc Pharmacy 141.5 ml/min; Est GFR (African American) 139.8 ml/min; Est GFR (Non-African American) 120.6 ml/min; Globulin 2.4 gm/dl (2.5-4.0); Magnesium 2.2 mg/dl (1.7-2.4); Phosphorus 3.1 mg/dl (2.5-4.9); Potassium 3.8 mmol/L (3.5-5.1); Total Protein 5.9 gm/dl (6.0-8.3)
[2021-07-17] MEDS: ACETAMINOPHEN 325 MG TAB PO PRN ×2 (08:01→16:17)
[2021-07-17] MEDS: ENOXAPARIN INJ 40 MG/0.4 ML SYR SQ SCH (09:01)
[2021-07-17] MEDS: DOXYCYCLINE HYCLATE 100 MG CAP PO SCH ×2 (09:01→20:04)
[2021-07-17] MEDS: ESCITALOPRAM OXALATE 10 MG TAB PO SCH (09:02)
[2021-07-17] MEDS ORDERED: FUROSEMIDE INJ 20 MG/2 ML VIAL IV ONE (09:31)
[2021-07-17] MEDS: LORazepam 0.5 MG TAB PO PRN ×2 (13:02→21:39)
--- NOTE | 2021-07-17 18:21 | Hospitalist Progress Note ---
Date of Service July 17, 2021 Assessment & Plan (1) Acute hypoxemic respiratory failure: Plan: Acute hypoxic respiratory failure with ARDS Multifocal pneumonia due to COVID-19 virus COVID Screen:Positive CT Chest:Marked interval worsening of interstitial and alveolar groundglass opacities representing Covid pneumonia. [place]vaccinated [place] Symptoms Onset: 3 weeks ago Procalcitonin: 0.23,CRP:14.4 Received Tocilizumab Condition deteriorated and required mechanical ventilation 07/08/21 S/P mechanical ventilation and extubated on 07/12/21 Sputum culture grew staphylococcus species. MRSA testing positive Pt was starting on Vancomycin ID was consulted and recommended PO Bactrim or Doxycycline to complete a total of 7 days course Completed 10 days course dexamethasone He has been off pressors and sedation Continue incentive spirometry and flutter valve Continue wean him from the oxygen Will start chest PT Constipation Continue bowel regimen Advance diet as tolerated Transaminitis Secondary to COVID 19 Liver enzymes slightly decreased with AST from 80 to 54 and ALT from 247 to 232 If LFT continue to get worst, will get an U/S Liver enzymes continue to trend down with AST 21, ALT 112 and ALK 110 Continue monitor LFT Steroid-induced hyperglycemia Prediabetes HbA1C:5.7 Anxiety/depression Has been on Lexapro at home Holding Lexapro to avoid any drug interaction and QT prolongation Has been able to tolerate CPAP or BiPAP Continue Lexapro daily Continue low dose of Ativan prn DVT Px:SCDs Re: Hemoptysis Continue Lovenox Code Status Full code Disposition Continue PT/OT Will discharge once medically stable Admission and Anticipated Discharge Date Admission Date: July 03, 2021 Subjective Patient was seen and examined for follow-up of shortness of breath Lying in bed with no acute distress He continues to be very anxious He said that his taste is getting better Denies any chest pain, palpitation, dizziness and fever Review of Systems Review of Systems: All systems reviewed & are unremarkable except as noted in Subjective Physical Exam Physical Exam: General- No acute distress Head- atraumatic Eyes- PERRL, EOMI, ENT- oropharynx clear Neck- supple, no JVD Lungs +diminished BS Heart- regular rhythm; no murmur Abdomen- normal bowel sounds, soft, nontender Extremities- no calf tenderness Neuro- alert, oriented,PERRL, EOMI; no facial palsy; no dysarthria Skin- warm & dry Results & Data Results & Data ([facility]) Vital Signs (Past 12 Hours) Vital Signs Temp Pulse Resp BP Pulse Ox 07/17/21 15:16 36.8 C 88 18 115/72 94 07/17/21 12:00 36.7 C 80 19 105/76 94 07/17/21 08:00 36.9 C 85 20 116/74 94
[2021-07-17] MEDS: guaiFENesin 200 MG TAB PO SCH (20:04)
[2021-07-18] MEDS: ACETAMINOPHEN 325 MG TAB PO PRN (00:29)
[2021-07-18] MEDS: guaiFENesin 200 MG TAB PO SCH ×3 (03:05→19:57)
[2021-07-18 06:24] LABS: Hematocrit (blood only) 46.4 % (42-52); Hemoglobin 16.1 g/dL (14.0-18.0); Mean Corpuscular Hemoglobin 31.6 pg (25-34); Mean Corpuscular Hgb Conc 34.7 g/dL (32-36); Mean Platelet Volume 9.8 fL (7.4-10.4); Platelet Count 215 K/uL (130-400); RDW Coefficient of Variation 13.2 % (11.5-14.5); RDW Standard Deviation 43.2 fL (36.4-46.3); White Blood Count 13.71 K/uL (4.8-10.8)
[2021-07-18 06:46] LABS: Albumin Globulin Ratio 1.4 (0.9-2); Albumin Level 3.6 gm/dl (3.4-5.0); BUN Creatinine Ratio 51.8 (10-20); Bilirubin,Total 1.1 mg/dl (0.2-1.0); Calcium 8.9 mg/dl (8.5-10.1); Est GFR (African American) 140.8 ml/min; Est GFR (Non-African American) 121.5 ml/min; Globulin 2.6 gm/dl (2.5-4.0); Potassium 3.8 mmol/L (3.5-5.1); Total Protein 6.2 gm/dl (6.0-8.3)
[2021-07-18] MEDS ORDERED: FUROSEMIDE INJ 20 MG/2 ML VIAL IV ONE (07:51)
[2021-07-18] MEDS: ESCITALOPRAM OXALATE 10 MG TAB PO SCH (09:24)
[2021-07-18] MEDS: traMADol HCL 50 MG TABLET PO PRN ×2 (09:24→19:56)
[2021-07-18] MEDS: DOXYCYCLINE HYCLATE 100 MG CAP PO SCH ×2 (09:24→19:57)
[2021-07-18] MEDS: NYSTATIN SUSP 500,000 U/5 ML UDC PO SCH ×4 (09:24→19:58)
[2021-07-18] MEDS: LORazepam 0.5 MG TAB PO PRN ×2 (09:24→16:49)
[2021-07-18] MEDS: ENOXAPARIN INJ 40 MG/0.4 ML SYR SQ SCH (09:33)
--- NOTE | 2021-07-18 23:22 | Hospitalist Progress Note ---
Date of Service July 18, 2021 Assessment & Plan (1) Acute hypoxemic respiratory failure: Plan: Acute hypoxic respiratory failure with ARDS Multifocal pneumonia due to COVID-19 virus COVID Screen:Positive CT Chest:Marked interval worsening of interstitial and alveolar groundglass opacities representing Covid pneumonia. [place]vaccinated [place] Symptoms Onset: 3 weeks ago Procalcitonin: 0.23,CRP:14.4 Received Tocilizumab Condition deteriorated and required mechanical ventilation 07/08/21 S/P mechanical ventilation and extubated on 07/12/21 Sputum culture grew staphylococcus species. MRSA testing positive Pt was starting on Vancomycin ID was consulted and recommended PO Bactrim or Doxycycline to complete a total of 7 days course Completed 10 days course dexamethasone He has been off pressors and sedation Continue incentive spirometry and flutter valve Continue wean him from the oxygen Continue chest PT Constipation Continue bowel regimen Advance diet as tolerated Transaminitis Secondary to COVID 19 Liver enzymes slightly decreased with AST from 80 to 54 and ALT from 247 to 232 If LFT continue to get worst, will get an U/S Liver enzymes continue to trend down with AST 17, ALT 87 and ALK 105 Continue monitor LFT Steroid-induced hyperglycemia Prediabetes HbA1C:5.7 Anxiety/depression Has been on Lexapro at home Holding Lexapro to avoid any drug interaction and QT prolongation Has been able to tolerate CPAP or BiPAP Continue Lexapro daily Continue low dose of Ativan prn We will consult psych as per family request DVT Px:SCDs Re: Hemoptysis Continue Lovenox Code Status Full code Disposition Continue PT/OT Will discharge once medically stable Admission and Anticipated Discharge Date Admission Date: July 03, 2021 Subjective Patient was seen and examined for follow-up of shortness of breath Lying in bed with no acute distress Earlier today he was sitting on the chair with no acute distress Denies any chest pain, palpitation, dizziness and fever Review of Systems Review of Systems: All systems reviewed & are unremarkable except as noted in Subjective Physical Exam Physical Exam: General- No acute distress Head- atraumatic Eyes- PERRL, EOMI, ENT- oropharynx clear Neck- supple, no JVD Lungs +diminished BS Heart- regular rhythm; no murmur Abdomen- normal bowel sounds, soft, nontender Extremities- no calf tenderness Neuro- alert, oriented,PERRL, EOMI; no facial palsy; no dysarthria Skin- warm & dry Results & Data Results & Data ([facility]) Vital Signs (Past 12 Hours) Vital Signs Temp Pulse Pulse Resp BP BP Pulse Ox 07/18/21 23:15 36.6 C 88 20 115/79 97 07/18/21 19:18 36.6 C 95 H 20 103/73 97 07/18/21 17:32 89 L 07/18/21 15:56 37.0 C 89 18 113/75 96 07/18/21 12:56 93 07/18/21 11:42 36.6 C 98 H 30 H 101/62 90
[2021-07-19] MEDS: LORazepam 0.5 MG TAB PO PRN ×2 (02:14→20:40)
[2021-07-19] MEDS: guaiFENesin 200 MG TAB PO SCH ×2 (02:14→10:52)
[2021-07-19] MEDS: ACETAMINOPHEN 325 MG TAB PO PRN (04:39)
[2021-07-19 06:34] LABS: Hematocrit (blood only) 46.5 % (42-52); Hemoglobin 16.3 g/dL (14.0-18.0); Mean Corpuscular Hemoglobin 31.8 pg (25-34); Mean Corpuscular Hgb Conc 35.1 g/dL (32-36); Mean Corpuscular Volume 90.8 fL (80-100); Platelet Count 233 K/uL (130-400); RDW Coefficient of Variation 13.1 % (11.5-14.5); RDW Standard Deviation 42.6 fL (36.4-46.3); Red Blood Count 5.12 M/uL (4.7-6.1); White Blood Count 11.13 K/uL (4.8-10.8)
[2021-07-19] MEDS: PROMETHAZINE HCL 12.5 MG in SODIUM CHLORIDE 0.9% 50 ML IV PRN (06:42)
[2021-07-19 06:47] LABS: Albumin Globulin Ratio 1.2 (0.9-2); Albumin Level 3.5 gm/dl (3.4-5.0); BUN Creatinine Ratio 50.8 (10-20); Bilirubin,Total 1.1 mg/dl (0.2-1.0); Creatinine Clr Calc Pharmacy 136.7 ml/min; Est GFR (African American) 137.8 ml/min; Est GFR (Non-African American) 118.9 ml/min; Globulin 2.9 gm/dl (2.5-4.0); Potassium 4.1 mmol/L (3.5-5.1); Total Protein 6.4 gm/dl (6.0-8.3)
[2021-07-19] MEDS: ESCITALOPRAM OXALATE 10 MG TAB PO SCH (08:25)
[2021-07-19] MEDS: NYSTATIN SUSP 500,000 U/5 ML UDC PO SCH ×4 (08:26→20:34)
[2021-07-19] MEDS: DOXYCYCLINE HYCLATE 100 MG CAP PO SCH ×2 (08:26→20:34)
[2021-07-19] MEDS: ENOXAPARIN INJ 40 MG/0.4 ML SYR SQ SCH (08:26)
--- NOTE | 2021-07-19 09:48 | Communication Note ---
Date of Service: July 19, 2021 Liaison attempted to round on patient, remains on COVID unit. Consult is seemingly for anxiety at request of the family. Will clarify when able to obtain ARI for . Multiple stressors as admit 07/03/21 for COVID pneumonia, intubated 07/08-07/12/21 and Lexapro held during that time, completed 10 day course of steroids which can also contribute to jitteriness along with breathing treatments and remains on Oxygen by mask 6L this am. Continue prn Ativan--appears to be using 0.5 mg BID without negative impact on respiratory status. Full consult to follow when clarify question, certainly anxiety would be normal adjustment reaction to COVID recovery, particularly given that hold Lexapro and received steroids. No additional recs at this time.
--- NOTE | 2021-07-19 12:29 | Hospitalist Progress Note ---
Date of Service July 19, 2021 Assessment & Plan (1) Acute hypoxemic respiratory failure: Plan: Acute hypoxic respiratory failure with ARDS Multifocal pneumonia due to COVID-19 virus Patient was unvaccinated Symptoms Onset: 3 weeks prior to presentation Found positive to COVID CT Chest:Marked interval worsening of interstitial and alveolar groundglass opacities representing Covid pneumonia. Procalcitonin: 0.23,CRP:14.4 Condition deteriorated and required mechanical ventilation 07/08/21 Extubated on 07/12/21 S/p Tocilizumab and completed 10 days of dexamethasone Sputum culture grew staphylococcus species. MRSA testing positive Pt was started on Vancomycin ID was consulted and recommended PO Bactrim or Doxycycline to complete a total of 7 days course Currently on doxycycline Continue incentive spirometry and flutter valve Continue wean him from the oxygen Continue chest PT Transaminitis Likely secondary to COVID 19 Liver enzymes improving Steroid-induced hyperglycemia Prediabetes HbA1C:5.7 Blood glucose controlled since off steroids Anxiety/depression Has been on Lexapro at home Lexapro was held briefly but has been resumed Continue low dose of Ativan prn Psych recs appreciated DVT PPx:Lovenox sq Code Status Full code Disposition Continue PT/OT Will discharge once medically stable Admission and Anticipated Discharge Date Admission Date: July 03, 2021 Subjective Patient seen and examined. Reports shortness of breath, cough occasionally productive of scant yellowish sputum. Reports some chest pain with coughing. Reports nausea and anxiety. Denies any fevers, chills Denies any abdominal pain, diarrhea Denies dysuria, frequency or urgency Asking about psych eval Physical Exam Constitutional: + well hydrated; no acute distress Eyes: PERRL, conjunctivae normal, anicteric sclerae ENMT: external ear and nose normal, oropharynx normal Respiratory: On oxygen mask at 8 L/min, diminished breath sounds globally Cardiovascular: Rate/Rhythm: regular rate and regular rhythm S1-S2 Gastrointestinal (Abdomen): normal bowel sounds, soft, nontender, no hepatosplenomegaly Musculoskeletal: no cyanosis or clubbing, extremities motor strength 5/5 Neurologic: PERRL, EOMI, accommodation nl, no face palsy, no dysarthria Results & Data Results & Data ([facility]) Vital Signs (Past 12 Hours) Vital Signs Temp Pulse Pulse Resp BP Pulse Ox 07/19/21 11:49 27 H 90 07/19/21 11:39 36.5 C 92 H 30 H 121/61 07/19/21 09:51 79 07/19/21 07:44 37.1 C 74 23 112/66 94 07/19/21 02:39 37 C 77 20 101/73 Laboratory Results Abnormal lab results 07/19/21 07/19/21 Range/Units 06:09 06:09 WBC 11.13 H (4.8-10.8) K/uL Sodium 134 L (136-145) mmol/L Chloride 97 L (98-107) mmol/L BUN 30 H (6-23) mg/dl Creatinine 0.59 L (0.6-1.4) mg/dl BUN/Creatinine Ratio 50.8 H (10-20) Glucose 116 H (70-99(Fasting)) mg/dl Total Bilirubin 1.1 H (0.2-1.0) mg/dl ALT 69 H (7-52) U/L
[2021-07-19] MEDS: guaiFENesin 600 MG TABCR PO SCH (20:33)
[2021-07-19] MEDS: BENZONATATE 100 MG CAPSULE PO PRN (20:40)
[2021-07-20] MEDS: traMADol HCL 50 MG TABLET PO PRN ×2 (00:22→20:47)
[2021-07-20 06:39] LABS: Hemoglobin 14.9 g/dL (14.0-18.0); Mean Corpuscular Hemoglobin 31.6 pg (25-34); Mean Corpuscular Hgb Conc 34.7 g/dL (32-36); Mean Corpuscular Volume 91.3 fL (80-100); Mean Platelet Volume 10.1 fL (7.4-10.4); Platelet Count 240 K/uL (130-400); RDW Coefficient of Variation 13.1 % (11.5-14.5); RDW Standard Deviation 43.5 fL (36.4-46.3); Red Blood Count 4.71 M/uL (4.7-6.1); White Blood Count 8.28 K/uL (4.8-10.8)
[2021-07-20 07:02] LABS: Albumin Globulin Ratio 1.3 (0.9-2); Albumin Level 3.4 gm/dl (3.4-5.0); BUN Creatinine Ratio 51.9 (10-20); Bilirubin,Total 0.9 mg/dl (0.2-1.0); Calcium 8.8 mg/dl (8.5-10.1); Creatinine Clr Calc Pharmacy 155.1 ml/min; Est GFR (African American) 145.1 ml/min; Est GFR (Non-African American) 125.2 ml/min; Globulin 2.7 gm/dl (2.5-4.0); Potassium 3.6 mmol/L (3.5-5.1); Total Protein 6.1 gm/dl (6.0-8.3)
[2021-07-20] MEDS: guaiFENesin 600 MG TABCR PO SCH ×2 (08:50→20:47)
[2021-07-20] MEDS: ENOXAPARIN INJ 40 MG/0.4 ML SYR SQ SCH (08:50)
[2021-07-20] MEDS: ESCITALOPRAM OXALATE 10 MG TAB PO SCH (08:50)
[2021-07-20] MEDS: NYSTATIN SUSP 500,000 U/5 ML UDC PO SCH ×4 (08:51→20:47)
--- NOTE | 2021-07-20 11:56 | Hospitalist Progress Note ---
Date of Service July 20, 2021 Assessment & Plan (1) Acute hypoxemic respiratory failure: Plan: Acute hypoxic respiratory failure with ARDS Multifocal pneumonia due to COVID-19 virus Patient was unvaccinated Symptoms Onset: 3 weeks prior to presentation Found positive to COVID CT Chest:Marked interval worsening of interstitial and alveolar groundglass opacities representing Covid pneumonia. Procalcitonin: 0.23,CRP:14.4 Condition deteriorated and required mechanical ventilation 07/08/21 Extubated on 07/12/21 S/p Tocilizumab and completed 10 days of dexamethasone Sputum culture grew staphylococcus species. MRSA testing positive Pt was started on Vancomycin ID was consulted and recommended PO Bactrim or Doxycycline to complete a total of 7 days course Completed doxycycline Patient has not been doing much of IS/flutter I educated patient on need for this Continue supportive therapy Continue to wean oxygen as tolerated Continue incentive spirometry and flutter valve Continue wean him from the oxygen Continue chest PT Transaminitis Likely secondary to COVID 19 Liver enzymes improving Steroid-induced hyperglycemia Prediabetes HbA1C:5.7 Blood glucose controlled since off steroids Anxiety/depression Per previous provider, patient was on lexapro at home Lexapro was held briefly but has been resumed Psych recs appreciated Continue lexapro Continue low dose of Ativan prn Trial of prazosin 1mg HS Check TSH DVT PPx:Lovenox sq Code Status Full code Disposition Continue PT/OT Will discharge once medically stable Admission and Anticipated Discharge Date Admission Date: July 03, 2021 Subjective Patient seen and examined. Reports shortness of breath, cough Reported some chest pain overnight with coughing. Denies nausea Denies any fevers, chills Denies any abdominal pain, diarrhea Denies dysuria, frequency or urgency Reports anxiety Physical Exam Constitutional: + well hydrated; no acute distress Eyes: PERRL, conjunctivae normal, anicteric sclerae ENMT: external ear and nose normal, oropharynx normal Respiratory: On oxymask at 6l/min, diminished breath sounds Cardiovascular: Rate/Rhythm: regular rate and regular rhythm S1 S2 Gastrointestinal (Abdomen): normal bowel sounds, soft, nontender, no hepatosplenomegaly Musculoskeletal: no cyanosis or clubbing, extremities motor strength 5/5 Neurologic: PERRL, EOMI, accommodation nl, no face palsy, no dysarthria Results & Data Results & Data ([facility]) Vital Signs (Past 12 Hours) Vital Signs Temp Pulse Resp BP Pulse Ox 07/20/21 07:57 36.6 C 82 27 H 108/73 92 07/20/21 03:57 36.8 C 88 16 110/77 94 Laboratory Results Abnormal lab results 07/20/21 Range/Units 05:48 Sodium 133 L (136-145) mmol/L BUN 27 H (6-23) mg/dl Creatinine 0.52 L (0.6-1.4) mg/dl BUN/Creatinine Ratio 51.9 H (10-20) Glucose 104 H (70-99(Fasting)) mg/dl ALT 64 H (7-52) U/L
--- NOTE | 2021-07-20 12:37 | Psychiatric Consultation ---
Date of Consultation July 20, 2021 Impression / Recommendations Impression 50 yo male with worsening anxiety due to acute stress disorder from acute respiratory failure secondary to COVID pneumonia. Jitteriness/subjective anxiety likely also triggered by recent steroids and respiratory status/ongoing treatments/02 requirement. (1) Acute stress disorder: he and are agreeable to outpatient referrals, liaison to assist and will schedule for 1 month out as may be stepping down to rehab. as far as labs, I do not see a thyroid panel Lexapro 10 mg for 1 month so could be increased in 5 mg increments to better target acute stress disorder though main complaint is nightmares. Prazosin 1 mg trial at hs could prove helpful in that regard if medically appropriate. Risk Factors Assessment Do You Have Access To A Gun?: No Telehealth Telehealth Options: Telephone only For the duration of the visit, provider was performing the assessment from: The same facility as the patient After establishing a telemedicine visit, patient was: Patient was verified with two unique identifiers, Patient/authorized rep acknowledged consent and understanding and Gave permission to continue telehealth session Total Time Spent (minutes): 15 Psych History Identifying Data 50 yo male from [place] admit 07/03/21 for COVID penumonia, complicated course and now increase in anxiety. Consult is per hospitalist service at request of family. Remains in respiratory isolation on COVID schwartz. Chief Complaint "I'm not paranoid any more but I do have nightmares". History of Present Illness Multiple stressors as admit 07/03/21 for COVID pneumonia, intubated 2/-07/12/21 and Lexapro held during that time, completed 10 day course of steroids which can also contribute to jitteriness along with breathing treatments and remains on Oxygen by mask 6L-8L. Doesn't feel prn Ativan is particularly beneficial, has been using BID. He states that he remembers feeling like a nurse was trying to kill him soon after coming off of the vent as she was making him cough/swallow to manage secretions. "I know this wasn't the case" and feels guilty for involving director nursing service. He reports sleeping 4 hrs a night as an improvement but has dreams about his ICU course, seems real too when in/out of napping. He is worried about ability to pay for rehab and how/when he will go back to work. 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 He reports appetite is improving and he denies ever having any suicidal thoughts. He started Lexapro about 1 month prior to getting sick as "I guess I've been feeling down and anxious on/off". confirms that the medication was from an old prescription that he never took and that currently he doesn't have a provider. Past Psychiatric History Previous Psych History: saw a prescriber at [facility] and maybe a therapist for a month. Outpatient Services: none Previous Psych Admissions: none Do You Have Access To A Gun?: No History of Previous Suicide Attempt: No Past Medication Trials: Prozac (helpful), Lexapro, Wellbutrin (maybe), Effexor (discontinuation syndrome) Allergies Allergy/AdvReac Type Severity Reaction Status Date / Time No Known Allergies Allergy Verified 07/02/21 11:25 Home Medications Medication Instructions Recorded Confirmed Type albuterol sulfate 90 mcg/actuation 2 inh INHALATION Q6H #18 g 06/22/21 07/03/21 Rx aerosol inhaler benzonatate 200 mg capsule 200 mg PO TID PRN #60 cap 06/22/21 07/03/21 Rx acetaminophen 500 mg tablet 500 - 1,000 mg PO Q6H PRN 07/02/21 07/03/21 History doxylamine-dextromethorphan 6.25 15 ml PO Q4H PRN 07/02/21 07/03/21 History mg-15 mg/15 mL oral solution (Vicks NyQuil Cough) hydrocodone-homatropine 5 mg-1.5 5 - 10 ml PO Q6H PRN #100 ml 07/02/21 07/03/21 Rx mg/5 mL (5 mL) oral syrup (Hycodan) ibuprofen 200 mg tablet 400 mg PO Q6H PRN 07/02/21 07/03/21 History multivitamin with minerals-folic 2 tab PO DAILY 07/02/21 07/03/21 History acid 200 mcg chewable tablet (Men's Daily Gummies) ondansetron 4 mg disintegrating 4 mg PO Q6H PRN #20 tab 07/02/21 07/03/21 Rx tablet prednisone 50 mg tablet 50 mg PO DAILY 5 Days #5 tab 07/02/21 07/03/21 Rx Family History none reported Personal History Beliefs That Will Affect Care: None Patient History Medical History No significant medical problems Surgical History No history of previous surgery Social History Smoking Status: Never smoker Hx Alcohol Use: No Hx Substance Use: No Preferred Language: Swazi Communication Ability: Effective Chief Gauger Required: No Beliefs That Will Affect Care: None marital status: Current Living Situation: Spouse current occupational status: employed Feels Safe at Home: Yes Safety Concerns: Feels Safe At This Time Assistive Devices: Oxygen - Continuous Assistive Devices Comment: pt has 1 contact in Physical Exam Psychiatric: Orientation: alert and oriented x 3 Speech: normal rate/rhythm/volume of speech Mood: + anxious mood Thought Process: goal directed thought process Thought Content: reality based without delusions Suicidal Thoughts: denies suicidal thoughts Homicidal Thoughts: denies homicidal thoughts Hallucinations: no auditory hallucinations and no visual hallucinations Cognition: attention grossly intact and language grossly intact Estimated Intelligence: consistent with education level Insight: + fair insight Judgement: + fair judgement Vital Signs (Past 24 Hours): Last Vital Signs Temp 36.5 C 07/20/21 11:59 Pulse 90 07/20/21 11:59 Resp 14 07/20/21 11:59 BP 109/63 07/20/21 11:59 Pulse Ox 92 07/20/21 11:59 Review of Systems All systems reviewed & are unremarkable except as noted in HPI & below (SOB and feeling of increased anxiety with change in position) Results & Data (PSY) Laboratory Results 07/20/21 07/20/21 Range/Units 05:48 05:48 WBC 8.28 (4.8-10.8) K/uL RBC 4.71 (4.7-6.1) M/uL Hgb 14.9 (14.0-18.0) g/dL Hct 43.0 (42-52) % MCV 91.3 (80-100) fL MCH 31.6 (25-34) pg MCHC 34.7 (32-36) g/dL RDW Std Deviation 43.5 (36.4-46.3) fL RDW Coeff of Slim 13.1 (11.5-14.5) % Plt Count 240 (130-400) K/uL MPV 10.1 (7.4-10.4) fL Sodium 133 L (136-145) mmol/L Potassium 3.6 (3.5-5.1) mmol/L Chloride 98 (98-107) mmol/L Carbon Dioxide 28 (21-32) mmol/L Anion Gap 7 (3-11) BUN 27 H (6-23) mg/dl Creatinine 0.52 L (0.6-1.4) mg/dl Est Cr Clr Drug Dosing 155.1 ml/min Est GFR ( Amer) 145.1 ml/min Est GFR (Non-Af Amer) 125.2 ml/min BUN/Creatinine Ratio 51.9 H (10-20) Glucose 104 H (70-99(Fasting)) mg/dl Calcium 8.8 (8.5-10.1) mg/dl Total Bilirubin 0.9 (0.2-1.0) mg/dl AST 22 (13-39) U/L ALT 64 H (7-52) U/L Alkaline Phosphatase 86 (34-104) U/L Total Protein 6.1 (6.0-8.3) gm/dl Albumin 3.4 (3.4-5.0) gm/dl Globulin 2.7 (2.5-4.0) gm/dl Albumin/Globulin Ratio 1.3 (0.9-2) Medications Administered Acetaminophen (Acetaminophen 325 Mg Tab) 325 mg PO Q6H PRN PRN Reason: Mild Pain Stop: 08/13/21 01:31 Last Admin: 07/19/21 04:39 Dose: 325 mg Documented by: [id number] Admin: 07/18/21 00:29 Dose: 325 mg Documented by: [id number] Admin: 07/17/21 16:17 Dose: 325 mg Documented by: [id number] Admin: 07/17/21 08:01 Dose: 325 mg Documented by: [id number] Admin: 07/16/21 08:33 Dose: 325 mg Documented by: [id number] Admin: 07/14/21 01:43 Dose: 325 mg Documented by: [id number] Benzonatate (Benzonatate 100 Mg Capsule) 100 mg PO TID [facility] Stop: 08/03/21 08:59 Last Admin: 07/10/21 08:04 Dose: Not Given Documented by: [id number] Admin: 07/09/21 20:28 Dose: Not Given Documented by: [id number] Admin: 07/09/21 13:21 Dose: Not Given Documented by: [id number] Admin: 07/09/21 09:00 Dose: Not Given Documented by: [id number] Admin: 07/08/21 20:13 Dose: Not Given Documented by: [id number] Admin: 07/08/21 12:52 Dose: Not Given Documented by: [id number] Admin: 07/08/21 07:52 Dose: 100 mg Documented by: [id number] Admin: 07/07/21 19:52 Dose: 100 mg Documented by: [id number] Admin: 07/07/21 15:25 Dose: 100 mg Documented by: [id number] Admin: 07/07/21 09:01 Dose: 100 mg Documented by: [id number] Admin: 07/06/21 21:52 Dose: 100 mg Documented by: [id number] Admin: 07/06/21 15:22 Dose: 100 mg Documented by: [id number] Admin: 07/06/21 08:54 Dose: 100 mg Documented by: [id number] Admin: 07/05/21 20:00 Dose: 100 mg Documented by: [id number] Admin: 07/05/21 15:38 Dose: 100 mg Documented by: [id number] Admin: 07/05/21 09:42 Dose: 100 mg Documented by: [id number] Admin: 07/04/21 19:55 Dose: 100 mg Documented by: [id number] Admin: 07/04/21 14:33 Dose: 100 mg Documented by: [id number] Admin: 07/04/21 08:15 Dose: 100 mg Documented by: [id number] Benzonatate (Benzonatate 100 Mg Capsule) 100 mg PO TID PRN PRN Reason: Cough Stop: 08/18/21 11:53 Last Admin: 07/19/21 20:40 Dose: 100 mg Documented by: [id number] Enoxaparin Sodium (Enoxaparin Inj 40 Mg/0.4 Ml Syr) 40 mg SQ QAM GABINO Stop: 08/04/21 08:59 Last Admin: 07/20/21 08:50 Dose: 40 mg Documented by: [id number] Admin: 07/19/21 08:26 Dose: 40 mg Documented by: [id number] Admin: 07/18/21 09:33 Dose: 40 mg Documented by: [id number] Admin: 07/17/21 09:01 Dose: 40 mg Documented by: [id number] Admin: 07/16/21 08:16 Dose: 40 mg Documented by: [id number] Admin: 07/15/21 08:24 Dose: 40 mg Documented by: [id number] Admin: 07/14/21 07:49 Dose: 40 mg Documented by: [id number] Admin: 07/13/21 09:06 Dose: 40 mg Documented by: [id number] Admin: 07/12/21 10:55 Dose: 40 mg Documented by: [id number] Admin: 07/11/21 08:38 Dose: 40 mg Documented by: [id number] Admin: 07/10/21 08:05 Dose: 40 mg Documented by: [id number] Admin: 07/09/21 09:01 Dose: 40 mg Documented by: [id number] Admin: 07/08/21 07:46 Dose: 40 mg Documented by: [id number] Admin: 07/07/21 08:55 Dose: 40 mg Documented by: [id number] Admin: 07/06/21 08:52 Dose: 40 mg Documented by: [id number] Admin: 07/05/21 09:39 Dose: 40 mg Documented by: [id number] Escitalopram Oxalate (Escitalopram Oxalate 10 Mg Tab) 10 mg PO QAM GABINO Stop: 08/13/21 13:44 Last Admin: 07/20/21 08:50 Dose: 10 mg Documented by: [id number] Admin: 07/19/21 08:25 Dose: 10 mg Documented by: [id number] Admin: 07/18/21 09:24 Dose: 10 mg Documented by: [id number] Admin: 07/17/21 09:02 Dose: 10 mg Documented by: [id number] Admin: 07/16/21 08:15 Dose: 10 mg Documented by: [id number] Admin: 07/15/21 08:24 Dose: 10 mg Documented by: [id number] Admin: 07/14/21 15:18 Dose: 10 mg Documented by: [id number] Guaifenesin (Guaifenesin 600 Mg Tabcr) 1,200 mg PO Q12 GABINO Stop: 08/18/21 20:59 Last Admin: 07/20/21 08:50 Dose: 1,200 mg Documented by: [id number] Admin: 07/19/21 20:33 Dose: 1,200 mg Documented by: [id number] Promethazine HCl 12.5 mg/ (Sodium Chloride) 50.5 mls @ 202 mls/hr IV Q6H PRN PRN Reason: Nausea And Vomiting Stop: 08/14/21 05:28 Last Infusion: 07/19/21 07:25 Dose: 0 mls/hr Documented by: [id number] Admin: 07/19/21 06:42 Dose: 202 mls/hr Documented by: [id number] Infusion: 07/15/21 10:46 Dose: 0 mls/hr Documented by: [id number] Admin: 07/15/21 08:23 Dose: 202 mls/hr Documented by: [id number] Ipratropium [place] (Ipratropium [place] Neb Soln 0.02% 2.5 Ml Vial) 0.5 mg INH Q4H PRN PRN Reason: SOB, WHEEZE Stop: 08/03/21 02:42 Last Admin: 07/04/21 06:09 Dose: 0.5 mg Documented by: [id number] Levalbuterol HCl (Levalbuterol 1.25mg/0.5ml Neb) 1.25 mg INH Q4H PRN PRN Reason: SOB, WHEEZE Stop: 08/03/21 02:02 Last Admin: 07/04/21 06:09 Dose: 1.25 mg Documented by: [id number] Lorazepam (Lorazepam 0.5 Mg Tab) 0.5 mg PO Q8H PRN PRN Reason: Anxiety Stop: 08/13/21 12:06 Last Admin: 07/19/21 20:40 Dose: 0.5 mg Documented by: [id number] Admin: 07/19/21 02:14 Dose: 0.5 mg Documented by: [id number] Admin: 07/18/21 16:49 Dose: 0.5 mg Documented by: [id number] Admin: 07/18/21 09:24 Dose: 0.5 mg Documented by: [id number] Admin: 07/17/21 21:39 Dose: 0.5 mg Documented by: [id number] Admin: 07/17/21 13:02 Dose: 0.5 mg Documented by: [id number] Admin: 07/16/21 21:10 Dose: 0.5 mg Documented by: [id number] Melatonin (Melatonin 3 Mg Tab) 3 mg PO HS PRN PRN Reason: Sleep Stop: 08/12/21 20:57 Last Admin: 07/14/21 20:40 Dose: 3 mg Documented by: [id number] Admin: 07/13/21 21:52 Dose: 3 mg Documented by: [id number] Nystatin (Nystatin Susp 500,000 U/5 Ml Udc) 5 ml PO QID GABINO Stop: 07/27/21 00:54 Last Admin: 07/20/21 12:34 Dose: Not Given Documented by: [id number] Admin: 07/20/21 08:51 Dose: 5 ml Documented by: [id number] Admin: 07/19/21 20:34 Dose: 5 ml Documented by: [id number] Admin: 07/19/21 18:22 Dose: Not Given Documented by: [id number] Admin: 07/19/21 12:33 Dose: Not Given Documented by: [id number] Admin: 07/19/21 08:26 Dose: 5 ml Documented by: [id number] Admin: 07/18/21 19:58 Dose: Not Given Documented by: [id number] Admin: 07/18/21 16:49 Dose: 5 ml Documented by: [id number] Admin: 07/18/21 14:36 Dose: 5 ml Documented by: [id number] Admin: 07/18/21 09:24 Dose: 5 ml Documented by: [id number] Admin: 07/17/21 20:05 Dose: 5 ml Documented by: [id number] Admin: 07/17/21 16:17 Dose: 5 ml Documented by: [id number] Admin: 07/17/21 13:02 Dose: 5 ml Documented by: [id number] Admin: 07/17/21 09:02 Dose: 5 ml Documented by: [id number] Admin: 07/17/21 02:03 Dose: 5 ml Documented by: [id number] Phenol (Chloraseptic 1.4% Soln 180 Ml Btl) 1 sprays MT Q4H PRN PRN Reason: sorethroat Stop: 08/15/21 16:15 Last Admin: 07/16/21 17:35 Dose: 1 sprays Documented by: [id number] Polyethylene Glycol (Polyethylene (Miralax) 17 Gm Pack) 17 gm PO DAILY PRN PRN Reason: Constipation Stop: 08/03/21 08:19 Last Admin: 07/20/21 09:41 Dose: 17 gm Documented by: [id number] Tramadol HCl (Tramadol Hcl 50 Mg Tablet) 50 mg PO BID PRN PRN Reason: pain Stop: 08/12/21 15:42 Last Admin: 07/20/21 00:22 Dose: 50 mg Documented by: [id number] Admin: 07/18/21 19:56 Dose: 50 mg Documented by: [id number] Admin: 07/18/21 09:24 Dose: 50 mg Documented by: [id number] Admin: 07/17/21 20:04 Dose: 50 mg Documented by: [id number] Admin: 07/17/21 04:55 Dose: 50 mg Documented by: [id number] Admin: 07/15/21 23:34 Dose: 50 mg Documented by: [id number] Admin: 07/15/21 08:24 Dose: 50 mg Documented by: [id number] Admin: 07/14/21 20:40 Dose: 50 mg Documented by: [id number] Admin: 07/13/21 22:30 Dose: 50 mg Documented by: [id number] Admin: 07/13/21 16:23 Dose: 50 mg Documented by: [id number] Coding Level of Care Code 31338 Inpt Consult Level 2 Diagnoses Acute stress disorder F43.0 Comment additional 20 min spent in chart review and coordination with .
[2021-07-20] MEDS: PRAZOSIN HCL 1 MG CAP PO SCH (20:48)
[2021-07-21 06:34] LABS: BUN Creatinine Ratio 47.2 (10-20); Creatinine Clr Calc Pharmacy 152.1 ml/min; Est GFR (Non-African American) 124.2 ml/min; Potassium 3.7 mmol/L (3.5-5.1)
[2021-07-21] MEDS: guaiFENesin 600 MG TABCR PO SCH ×2 (08:33→21:05)
[2021-07-21] MEDS: ESCITALOPRAM OXALATE 10 MG TAB PO SCH (08:33)
[2021-07-21] MEDS: NYSTATIN SUSP 500,000 U/5 ML UDC PO SCH ×4 (08:34→21:06)
[2021-07-21] MEDS: ENOXAPARIN INJ 40 MG/0.4 ML SYR SQ SCH (08:34)
--- NOTE | 2021-07-21 10:52 | Communication Note ---
Date of Service: July 21, 2021 Prazosin reportedly helping with nightmares, reports "solid" 5 hrs sleep last pm. Liaison assisting with therapy referrals in the [place] area.
--- NOTE | 2021-07-21 15:11 | Hospitalist Progress Note ---
Date of Service July 21, 2021 Assessment & Plan (1) Acute hypoxemic respiratory failure: Plan: Acute hypoxic respiratory failure with ARDS Multifocal pneumonia due to COVID-19 virus Patient was unvaccinated Symptoms Onset: 3 weeks prior to presentation Found positive to COVID CT Chest:Marked interval worsening of interstitial and alveolar groundglass opacities representing Covid pneumonia. Procalcitonin: 0.23,CRP:14.4 Condition deteriorated and required mechanical ventilation 07/08/21 Extubated on 07/12/21 S/p Tocilizumab and completed 10 days of dexamethasone Sputum culture grew staphylococcus species. MRSA testing positive Pt was started on Vancomycin ID was consulted and recommended PO Bactrim or Doxycycline to complete a total of 7 days course Completed doxycycline Patient has not been doing much of IS/flutter I educated patient on need for this Continue supportive therapy Continue to wean oxygen as tolerated Continue incentive spirometry and flutter valve Continue wean him from the oxygen Transaminitis Likely secondary to COVID 19 Liver enzymes improving Steroid-induced hyperglycemia Prediabetes HbA1C:5.7 Blood glucose controlled since off steroids Anxiety/depression Per previous provider, patient was on lexapro at home Lexapro was held briefly but has been resumed Psych recs appreciated Continue lexapro Continue low dose of Ativan prn Trial of prazosin 1mg HS Check TSH DVT PPx:Lovenox sq Code Status Full code Disposition Continue PT/OT Transfer to [facility] Discussed with infection control. D/C airborne precautions Admission and Anticipated Discharge Date Admission Date: July 03, 2021 Subjective Patient seen and examined. Reports shortness of breath is improving Still has cough Reported nausea earlier which she attributed to what he had for lunch but currently resolved Denies any fevers, chills Denies any abdominal pain, vomiting, diarrhea Denies dysuria, frequency or urgency Reported he had better sleep last night Physical Exam Constitutional: + well hydrated; no acute distress Eyes: PERRL, conjunctivae normal, anicteric sclerae ENMT: external ear and nose normal, oropharynx normal Respiratory: On oxymask at 4l/min, diminished breath sounds. no crackles Cardiovascular: Rate/Rhythm: regular rate and regular rhythm S1 S2 Gastrointestinal (Abdomen): normal bowel sounds, soft, nontender, no hepatosplenomegaly Musculoskeletal: no cyanosis or clubbing, extremities motor strength 5/5 Neurologic: PERRL, EOMI, accommodation nl, no face palsy, no dysarthria Psychiatric: A+Ox3, euthymic affect Results & Data Results & Data ([facility]) Vital Signs (Past 12 Hours) Vital Signs Temp Pulse Pulse Resp BP Pulse Ox 07/21/21 11:23 37.0 C 87 16 112/65 95 07/21/21 08:32 91 07/21/21 08:29 37.1 C 87 16 109/63 93 07/21/21 08:00 85 07/21/21 04:28 37.0 C 90 20 106/63 94 Laboratory Results Abnormal lab results 07/21/21 Range/Units 05:27 Sodium 135 L (136-145) mmol/L BUN 25 H (6-23) mg/dl Creatinine 0.53 L (0.6-1.4) mg/dl BUN/Creatinine Ratio 47.2 H (10-20) Glucose 114 H (70-99(Fasting)) mg/dl
[2021-07-21] MEDS: MELATONIN 3 MG TAB PO PRN (21:05)
[2021-07-21] MEDS: traMADol HCL 50 MG TABLET PO PRN (21:05)
[2021-07-21] MEDS: PRAZOSIN HCL 1 MG CAP PO SCH (21:05)
[2021-07-21] MEDS: LORazepam 0.5 MG TAB PO PRN (23:19)
[2021-07-22] MEDS: guaiFENesin 600 MG TABCR PO SCH ×2 (09:19→21:28)
[2021-07-22] MEDS: NYSTATIN SUSP 500,000 U/5 ML UDC PO SCH ×4 (09:19→21:29)
[2021-07-22] MEDS: ESCITALOPRAM OXALATE 10 MG TAB PO SCH (09:19)
[2021-07-22] MEDS: ENOXAPARIN INJ 40 MG/0.4 ML SYR SQ SCH (09:20)
[2021-07-22] MEDS: PROMETHAZINE HCL 12.5 MG in SODIUM CHLORIDE 0.9% 50 ML IV PRN (12:17)
--- NOTE | 2021-07-22 12:21 | Hospitalist Progress Note ---
Date of Service July 22, 2021 Assessment & Plan (1) Acute hypoxemic respiratory failure: Plan: Acute hypoxic respiratory failure with ARDS Multifocal pneumonia due to COVID-19 virus Patient was unvaccinated Symptoms Onset: 3 weeks prior to presentation Found positive to COVID CT Chest:Marked interval worsening of interstitial and alveolar groundglass opacities representing Covid pneumonia. Procalcitonin: 0.23,CRP:14.4 Condition deteriorated and required mechanical ventilation 07/08/21 Extubated on 07/12/21 S/p Tocilizumab and completed 10 days of dexamethasone Sputum culture grew staphylococcus species. MRSA testing positive ID was consulted and recommended po Bactrim or Doxycycline to complete a total of 7 days course Completed doxycycline Continue IS/flutter Continue supportive therapy Continue to wean oxygen as tolerated Transaminitis Likely secondary to COVID 19 Liver enzymes improved Steroid-induced hyperglycemia Prediabetes HbA1C:5.7 Blood glucose controlled since off steroids Anxiety/depression Per previous provider, patient was on lexapro at home Lexapro was held briefly but has been resumed Psych recs appreciated Continue lexapro Continue low dose of Ativan prn Continue prazosin 1mg HS TSH is normal DVT PPx:Lovenox sq Code Status Full code Disposition Continue PT/OT Discussed with CM who is working on placement Admission and Anticipated Discharge Date Admission Date: July 03, 2021 Subjective Patient seen and examined. Reports some nausea, stomach cramps and one episode of loose stool this morning Reported shortness of breath is improving Denies any fevers, chills Denies dysuria, frequency or urgency Physical Exam Constitutional: + well hydrated; no acute distress Eyes: PERRL, conjunctivae normal, anicteric sclerae ENMT: external ear and nose normal, oropharynx normal Respiratory: On 4l/min NC, diminished breath sounds, no crackles Cardiovascular: Rate/Rhythm: regular rate and regular rhythm S1 S2 Gastrointestinal (Abdomen): normal bowel sounds, soft, nontender, no hepatosplenomegaly Musculoskeletal: no cyanosis or clubbing, extremities motor strength 5/5 Neurologic: PERRL, EOMI, accommodation nl, no face palsy, no dysarthria Psychiatric: A+Ox3, euthymic affect Results & Data Results & Data ([facility]) Vital Signs (Past 12 Hours) Vital Signs Temp Pulse Resp BP Pulse Ox 07/22/21 11:34 37.0 C 75 20 107/68 95 02/19/22 08:08 36.7 C 90 27 H 120/68 93 07/22/21 03:45 36.8 C 86 20 107/65 93
[2021-07-22] MEDS: PRAZOSIN HCL 1 MG CAP PO SCH (21:28)
[2021-07-22] MEDS: traMADol HCL 50 MG TABLET PO PRN (21:29)
[2021-07-22] MEDS: LORazepam 0.5 MG TAB PO PRN (21:29)
[2021-07-23 06:21] LABS: Albumin Globulin Ratio 1.2 (0.9-2); Albumin Level 3.1 gm/dl (3.4-5.0); BUN Creatinine Ratio 29.7 (10-20); Bilirubin,Total 0.6 mg/dl (0.2-1.0); Calcium 8.6 mg/dl (8.5-10.1); Est GFR (African American) 133.3 ml/min; Globulin 2.6 gm/dl (2.5-4.0); Potassium 3.6 mmol/L (3.5-5.1); Total Protein 5.7 gm/dl (6.0-8.3)
[2021-07-23] MEDS: ACETAMINOPHEN 325 MG TAB PO PRN (06:43)
[2021-07-23] MEDS: traMADol HCL 50 MG TABLET PO PRN ×2 (07:20→21:33)
[2021-07-23] MEDS: ESCITALOPRAM OXALATE 10 MG TAB PO SCH (09:40)
[2021-07-23] MEDS: ENOXAPARIN INJ 40 MG/0.4 ML SYR SQ SCH (09:40)
--- NOTE | 2021-07-23 16:06 | Hospitalist Progress Note ---
Date of Service July 23, 2021 Assessment & Plan (1) Acute hypoxemic respiratory failure: Plan: Acute hypoxic respiratory failure with ARDS Multifocal pneumonia due to COVID-19 virus Patient was unvaccinated Symptoms Onset: 3 weeks prior to presentation Found positive to COVID CT Chest:Marked interval worsening of interstitial and alveolar groundglass opacities representing Covid pneumonia. Procalcitonin: 0.23,CRP:14.4 Condition deteriorated and required mechanical ventilation 07/08/21 Extubated on 07/12/21 S/p Tocilizumab and completed 10 days of dexamethasone Sputum culture grew staphylococcus species. MRSA testing positive ID was consulted and recommended po Bactrim or Doxycycline to complete a total of 7 days course Completed doxycycline Continue IS/flutter Continue supportive therapy Continue to wean oxygen as tolerated Transaminitis Likely secondary to COVID 19 Liver enzymes improved Steroid-induced hyperglycemia Prediabetes HbA1C:5.7 Blood glucose controlled since off steroids Anxiety/depression Per previous provider, patient was on lexapro at home Lexapro was held briefly but has been resumed Psych recs appreciated Continue lexapro even on discharge Continue low dose of Ativan prn Continue prazosin 1mg HS TSH is normal DVT PPx:Lovenox sq Code Status Full code Disposition Continue PT/OT Will f/u CM tomorrow about placement Admission and Anticipated Discharge Date Admission Date: July 03, 2021 Subjective Patient seen and examined. Reports nausea may be associated with medications Denied any abd pain or diarrhea today Reported shortness of breath with exertion is improving Denies any fevers, chills Denies dysuria, frequency or urgency Physical Exam Constitutional: + well hydrated; no acute distress Eyes: PERRL, conjunctivae normal, anicteric sclerae ENMT: external ear and nose normal, oropharynx normal Respiratory: On 2l/min NC, breath sounds improved, no crackles Cardiovascular: Rate/Rhythm: regular rate and regular rhythm S1 S2 Gastrointestinal (Abdomen): normal bowel sounds, soft, nontender, no hepatosplenomegaly Musculoskeletal: no cyanosis or clubbing, extremities motor strength 5/5 Neurologic: PERRL, EOMI, accommodation nl, no face palsy, no dysarthria Psychiatric: A+Ox3, euthymic affect Results & Data Results & Data ([facility]) Vital Signs (Past 12 Hours) Vital Signs Temp Pulse Pulse Resp BP Pulse Ox 07/23/21 15:32 36.7 C 71 19 95/62 L 98 07/23/21 07:31 36.8 C 85 18 105/68 97 Laboratory Results Abnormal lab results 07/23/21 Range/Units 05:49 BUN/Creatinine Ratio 29.7 H (10-20) Glucose 102 H (70-99(Fasting)) mg/dl ALT 60 H (7-52) U/L Total Protein 5.7 L (6.0-8.3) gm/dl Albumin 3.1 L (3.4-5.0) gm/dl
[2021-07-23] MEDS: PROMETHAZINE HCL 12.5 MG in SODIUM CHLORIDE 0.9% 50 ML IV PRN (16:56)
[2021-07-23] MEDS: LORazepam 0.5 MG TAB PO PRN (21:33)
[2021-07-23] MEDS: PRAZOSIN HCL 1 MG CAP PO SCH (21:34)
[2021-07-24] MEDS: ENOXAPARIN INJ 40 MG/0.4 ML SYR SQ SCH (08:36)
[2021-07-24] MEDS: ESCITALOPRAM OXALATE 10 MG TAB PO SCH (08:36)
[2021-07-24] MEDS: LORazepam 0.5 MG TAB PO PRN ×2 (09:55→20:15)
--- NOTE | 2021-07-24 14:04 | Hospitalist Progress Note ---
Date of Service July 24, 2021 Assessment & Plan (1) Acute hypoxemic respiratory failure: Plan: Acute hypoxic respiratory failure with ARDS Multifocal pneumonia due to COVID-19 virus Patient was unvaccinated Symptoms Onset: 3 weeks prior to presentation Found positive to COVID CT Chest:Marked interval worsening of interstitial and alveolar groundglass opacities representing Covid pneumonia. Procalcitonin: 0.23,CRP:14.4 Condition deteriorated and required mechanical ventilation 07/08/21 Extubated on 07/12/21 S/p Tocilizumab and completed 10 days of dexamethasone Sputum culture grew staphylococcus species. MRSA testing positive ID was consulted and recommended po Bactrim or Doxycycline to complete a total of 7 days course Completed doxycycline Continue IS/flutter Continue supportive therapy Continue to wean oxygen as tolerated Transaminitis Likely secondary to COVID 19 Liver enzymes improved Steroid-induced hyperglycemia Prediabetes HbA1C:5.7 Blood glucose controlled since off steroids Anxiety/depression Per previous provider, patient was on lexapro at home Lexapro was held briefly but has been resumed Psych on board Will follow up psych about his anxiety/panic episodes Continue lexapro even on discharge Continue low dose of Ativan prn Continue prazosin 1mg HS TSH is normal DVT PPx:Lovenox sq Code Status Full code Disposition Continue PT/OT CM working on placement Admission and Anticipated Discharge Date Admission Date: July 03, 2021 Subjective Patient seen and examined. Reports nausea is improved Denied any abd pain, diarrhea Reported shortness of breath with exertion continue to improve Denies any fevers, chills Denies dysuria, frequency or urgency Patient had a panic attack while moving BM Physical Exam Constitutional: + well hydrated; no acute distress Eyes: PERRL, conjunctivae normal, anicteric sclerae ENMT: external ear and nose normal, oropharynx normal Respiratory: Not in respiratory distress, good air entry bilaterally, no crackles Cardiovascular: Rate/Rhythm: regular rate and regular rhythm S1 S2 Gastrointestinal (Abdomen): normal bowel sounds, soft, nontender, no hepatosplenomegaly Musculoskeletal: no cyanosis or clubbing, extremities motor strength 5/5 Neurologic: PERRL, EOMI, accommodation nl, no face palsy, no dysarthria Psychiatric: A+Ox3, euthymic affect
[2021-07-24] MEDS: traMADol HCL 50 MG TABLET PO PRN (20:15)
[2021-07-24] MEDS: PRAZOSIN HCL 1 MG CAP PO SCH (20:15)
[2021-07-25] MEDS: BENZONATATE 100 MG CAPSULE PO PRN (04:27)
[2021-07-25] MEDS: ACETAMINOPHEN 325 MG TAB PO PRN (04:27)
[2021-07-25] MEDS: ESCITALOPRAM OXALATE 10 MG TAB PO SCH (08:00)
[2021-07-25] MEDS: ENOXAPARIN INJ 40 MG/0.4 ML SYR SQ SCH (08:00)
--- NOTE | 2021-07-25 10:33 | Psychiatric Progress Note ---
Date of Service July 25, 2021 Impression / Recommendations Impression 50 yo male with worsening anxiety due to acute stress disorder from acute respiratory failure secondary to COVID pneumonia. Jitteriness/subjective anxiety likely also triggered by recent steroids and respiratory status/ongoing treatments/02 requirement. 07/25/21: Slow progress, some panic attacks which seem largely driven by physiological oxygen requirement, panic attacks tend to occur when he using the bathroom and O2 requirement increases and he feels SOB/weakness. Discussed expectation that this should improve as his health/strength/breathing improves over time and with physical rehab. Option to continue using prn medications for panic attacks during this time period. If anxiety persists after one month and with decrease in O2 requirement recommend increasing lexapro to further target anxiety. Sleep has significantly improved with prazosin. No safety concerns, psychiatrically stable for subacute rehab. (1) Acute stress disorder: -Can continue to utilize lorazepam 0.5 mg BID prn for panic attacks and/or hydroxyzine 25 mg q6h prn for panic attacks/anxiety -Prazosin 1 mg qhs -Lexapro 10 mg for 1 month so could be increased in 5 mg increments to better target acute stress disorder though main complaint is nightmares. Risk Factors Assessment Do You Have Access To A Gun?: No Interval History Identifying Information 50 yo male from [place] admit 07/03/21 for COVID penumonia, complicated course and now increase in anxiety. Consult is per hospitalist service at request of family. Chief Complaint "I've had some panic attacks when going to the bathroom". Review of Systems Notes Stable sleep and appetite. Subjective Subjective Patient was seen & assessed and interval progress reviewed. He's no longer on COVID isolation. Feeling a bit better but continues to have weakness, SOB, cough. Endorses ongoing periods of anxiety and panic attacks especially related to going to the bathroom when he oxygen saturation drops. He remains hopeful things will improve with time. Provided psychoeducation on panic attacks, anxiet y and coping skills to try. Reviewed medications he's using. Continues to find prazosin helpful without any side effects. Physical Exam Psychiatric Orientation: alert and oriented x 3 Apperance: appropriately dressed and appropriately groomed Eye Contact: good eye contact Motor Behavior: no abnormal motor movements Speech: normal rate/rhythm/volume of speech Affect: euthymic affect Mood: + anxious mood; no depressed mood Thought Process: goal directed thought process Thought Content: reality based without delusions Suicidal Thoughts: denies suicidal thoughts Homicidal Thoughts: denies homicidal thoughts Hallucinations: no auditory hallucinations and no visual hallucinations Cognition: recent memory grossly intact, remote memory grossly intact, attention grossly intact and language grossly intact Estimated Intelligence: consistent with education level Insight: + fair insight Judgement: + fair judgement Vital Signs (Past 24 Hours) Last Vital Signs Temp 37 C 07/25/21 06:14 Pulse 78 07/25/21 06:14 Resp 20 07/25/21 06:14 BP 93/59 L 07/25/21 06:14 Pulse Ox 97 07/25/21 06:14 Results & Data ([facility]) Current Inpatient Medications Current Inpatient Medications: Current Inpatient Medications Acetaminophen (Acetaminophen 325 Mg Tab) 325 mg PO Q6H PRN PRN Reason: Mild Pain Stop: 08/13/21 01:31 Last Admin: 07/25/21 04:27 Dose: 325 mg Documented by: Benzonatate (Benzonatate 100 Mg Capsule) 100 mg PO TID PRN PRN Reason: Cough Stop: 08/18/21 11:53 Last Admin: 07/25/21 04:27 Dose: 100 mg Documented by: Docusate Sodium (Docusate Sodium 100 Mg Cap) 100 mg PO BID PRN PRN Reason: Constipation Stop: 08/03/21 08:59 Enoxaparin Sodium (Enoxaparin Inj 40 Mg/0.4 Ml Syr) 40 mg SQ [facility] Stop: 08/04/21 08:59 Last Admin: 07/25/21 08:00 Dose: 40 mg Documented by: Escitalopram Oxalate (Escitalopram Oxalate 10 Mg Tab) 10 mg PO QAM [facility] Stop: 08/13/21 13:44 Last Admin: 07/25/21 08:00 Dose: 10 mg Documented by: Promethazine HCl 12.5 mg/ (Sodium Chloride) 50.5 mls @ 202 mls/hr IV Q6H PRN PRN Reason: Nausea And Vomiting Stop: 08/14/21 05:28 Last Infusion: 07/23/21 17:16 Dose: Infused Documented by: Ipratropium [place] (Ipratropium [place] Neb Soln 0.02% 2.5 Ml Vial) 0.5 mg INH Q4H PRN PRN Reason: SOB, WHEEZE Stop: 08/03/21 02:42 Last Admin: 07/04/21 06:09 Dose: 0.5 mg Documented by: Levalbuterol HCl (Levalbuterol 1.25mg/0.5ml Neb) 1.25 mg INH Q4H PRN PRN Reason: SOB, WHEEZE Stop: 08/03/21 02:02 Last Admin: 07/04/21 06:09 Dose: 1.25 mg Documented by: Lorazepam (Lorazepam 0.5 Mg Tab) 0.5 mg PO Q8H PRN PRN Reason: Anxiety Stop: 08/13/21 12:06 Last Admin: 07/24/21 20:15 Dose: 0.5 mg Documented by: Melatonin (Melatonin 3 Mg Tab) 3 mg PO HS PRN PRN Reason: Sleep Stop: 08/12/21 20:57 Last Admin: 07/21/21 21:05 Dose: 3 mg Documented by: Menthol (Cough Drop (Sugar Free) Pramod 24 Pramod/1 Box) 1 pramod BUCCAL UD PRN PRN Reason: nursing decision Stop: 08/13/21 03:33 Phenol (Chloraseptic 1.4% Soln 180 Ml Btl) 1 sprays MT Q4H PRN PRN Reason: sorethroat Stop: 08/15/21 16:15 Last Admin: 07/16/21 17:35 Dose: 1 sprays Documented by: Polyethylene Glycol (Polyethylene (Miralax) 17 Gm Pack) 17 gm PO DAILY PRN PRN Reason: Constipation Stop: 08/03/21 08:19 Last Admin: 07/20/21 09:41 Dose: 17 gm Documented by: Prazosin HCl (Prazosin Hcl 1 Mg Cap) 1 mg PO HS GABINO Stop: 08/19/21 20:59 Last Admin: 07/24/21 20:15 Dose: 1 mg Documented by: Tramadol HCl (Tramadol Hcl 50 Mg Tablet) 50 mg PO BID PRN PRN Reason: pain Stop: 08/12/21 15:42 Last Admin: 07/24/21 20:15 Dose: 50 mg Documented by:
[2021-07-25] MEDS: LORazepam 0.5 MG TAB PO PRN (12:25)
--- NOTE | 2021-07-25 13:15 | Discharge Summary ---
Date of Service July 25, 2021 Admission HPI Per Admitting Provider History obtained from patient and records. No significant medical history. Two prior ER visits for the month of June,. 3 weeks ago, patient had flulike symptoms with stuffy nose, headache sore throat, body aches, fatigue and diarrhea. Some shortness of breath with right- sided chest pain with coughing. Recent COVID-19 contacts. Patient has not received COVID-19 vaccination. Patient consulted ER 10 days ago. COVID-19 test was negative. Patient sent home after unremarkable work-up. 2 days ago, patient noted worsening junky cough symptoms with shortness of breath. Patient consulted ER. COVID-[address] chest showed viral pneumonia. No pulmonary embolism. IV Decadron given at the ER. Patient sent home on prednisone course. Patient returned to ER for worsening cough with hemoptysis symptoms. Achy headache and upper abdominal pain symptoms from coughing as per patient. O2 sats upon arrival at the ER 80s on room air. Patient received Cefepime and Decadron at the ER. 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 Admission Exam Per Admitting Provider GENERAL: uncomfortable, respiratory distress, incessant coughing SKIN: Normal color, warm HEENT: [place] palpebral conjunctivae, no ptosis, dry buccal mucosa, O2 mask in place NECK : Supple, no tenderness CHEST : CTA, no tenderness HEART : RRR, no obvious murmurs ABDOMEN: Some distention, nontender EXTREMITIES : No LE swelling/tenderness, no other conspicuous deformities noted NEUROLOGIC : Coherent, no facial asymmetry, no other gross focality Principal Diagnosis Acute hypoxic respiratory failure due to COVID-19 pneumonia Discharge Exam Constitutional WD/WN, vitals as above no acute distress Respiratory normal respiratory effort; no respiratory distress Auscultation: + diminished lung sounds and + crackles (BL bases) on 3L oxymask Cardiovascular Rate/Rhythm: regular rate and regular rhythm Vessels: normal peripheral pulses Extremities: no edema Gastrointestinal (Abdomen) Percussion/Palpation: abdomen soft; abdomen nontender Skin no rashes, warm and dry Neurologic no focal motor deficits Psychiatric A+Ox3, euthymic affect Discharge Data Allergies Allergy/AdvReac Type Severity Reaction Status Date / Time No Known Allergies Allergy Verified 07/02/21 11:25 Consultations 07/04/21 07:57 Consult Pulmonology Routine 07/12/21 23:02 Consult Infectious Diseases Routine 07/18/21 23:26 Consult Psychiatry Routine Ordered Studies Laboratory Results WBC 8.28 K/uL (4.8-10.8) 07/20/21 05:48 RBC 4.71 M/uL (4.7-6.1) 07/20/21 05:48 Hgb 14.9 g/dL (14.0-18.0) 07/20/21 05:48 POC Hgb 13.6 g/dl (14.0-18.0) L 07/12/21 03:29 Hct 43.0 % (42-52) 07/20/21 05:48 POC Hct 40 % (42-52) L 07/12/21 03:29 MCV 91.3 fL (80-100) 07/20/21 05:48 MCH 31.6 pg (25-34) 07/20/21 05:48 MCHC 34.7 g/dL (32-36) 07/20/21 05:48 RDW Std Deviation 43.5 fL (36.4-46.3) 07/20/21 05:48 RDW Coeff of Slim 13.1 % (11.5-14.5) 07/20/21 05:48 Plt Count 240 K/uL (130-400) 07/20/21 05:48 MPV 10.1 fL (7.4-10.4) 07/20/21 05:48 Immature Gran % (Auto) 1.0 % 07/10/21 06:00 Neut % (Auto) 87.1 % 07/10/21 06:00 Lymph % (Auto) 6.4 % 07/10/21 06:00 [place] % (Auto) 1.9 % 07/10/21 06:00 Eos % (Auto) 3.5 % 07/10/21 06:00 Baso % (Auto) 0.1 % 07/10/21 06:00 Neut # (Auto) 7.82 K/uL (1.4-6.5) H 07/10/21 06:00 Lymph # (Auto) 0.57 K/uL (1.2-3.4) L 07/10/21 06:00 [place] # (Auto) 0.17 K/uL (0.11-0.59) 07/10/21 06:00 Eos # (Auto) 0.31 K/uL (0-0.5) 07/10/21 06:00 Baso # (Auto) 0.01 K/uL (0-0.2) 07/10/21 06:00 Immature Gran # (Auto) 0.09 K/uL (0.00-0.02) H 07/10/21 06:00 PT 9.9 Seconds (9.0-12.0) 07/03/21 20:14 INR 1.0 (0.9-1.1) 07/03/21 20:14 APTT 28.6 Seconds (21.0-31.0) 07/03/21 20:14 PTT Ratio 1.1 07/03/21 20:14 Sample Site Art Line 07/12/21 03:29 POC pH 7.45 (7.35-7.45) 07/12/21 03:29 POC pCO2 42 mmHg (35-46) 07/12/21 03:29 POC pO2 54 mmHg (80-95) L 07/12/21 03:29 POC HCO3 29 malathi/L (19-24) H 07/12/21 03:29 POC Total CO2 30 mmol/L (24-31) 07/12/21 03:29 POC Base Excess 5.0 malathi/L (-9-1.8) H 07/12/21 03:29 ABG pH 7.45 (7.35-7.45) 07/04/21 08:27 ABG pH (Temp Correct) 7.441 (7.35-7.45) 07/12/21 03:29 ABG pCO2 36 mmHg (35-46) 07/04/21 08:27 ABG pCO2 (Temp Corrct 43 mmHg (35-46) 07/12/21 03:29 ABG pO2 69 mmHg (80-95) L 07/04/21 08:27 POC ABG pO2 at Pt Temp 56 07/12/21 03:29 ABG HCO3 24 mmol/L (19-24) 07/04/21 08:27 POC ABG O2 Sat 89.0 % (90-95) L 07/12/21 03:29 ABG O2 Saturation 95.1 % (90-95) H 07/04/21 08:27 ABG Base Excess 0.8 mEq/L (-9-1.8) 07/04/21 08:27 Rock Test NA 07/12/21 03:29 Barometric Pressure 742.7 mm/Hg 07/04/21 08:27 Oxygen Given 40% 07/04/21 08:27 O2 Delivery Device Ventilator 07/12/21 03:29 POC O2 Rate 22 07/12/21 03:29 Minute Ventilation 8.4 07/12/21 03:29 POC FiO2 45 % 07/12/21 03:29 Tidal Volume 430 07/12/21 03:29 PEEP 5 07/12/21 03:29 POC Sodium 134 mmol/L (135-144) L 07/12/21 03:29 Sodium 137 mmol/L (136-145) 07/23/21 05:49 POC Potassium 4.0 mmol/L (3.3-5.0) 07/12/21 03:29 Potassium 3.6 mmol/L (3.5-5.1) 07/23/21 05:49 Chloride 101 mmol/L (98-107) 07/23/21 05:49 Carbon Dioxide 31 mmol/L (21-32) 07/23/21 05:49 Anion Gap 5 (3-11) 07/23/21 05:49 BUN 19 mg/dl (6-23) 07/23/21 05:49 Creatinine 0.64 mg/dl (0.6-1.4) 07/23/21 05:49 Est Cr Clr Drug Dosing 126.0 ml/min 07/23/21 05:49 Est GFR ( Amer) 133.3 ml/min 07/23/21 05:49 Est GFR (Non-Af Amer) 115.0 ml/min 07/23/21 05:49 BUN/Creatinine Ratio 29.7 (10-20) H 07/23/21 05:49 Glucose 102 mg/dl (70-99(Fasting)) H 07/23/21 05:49 POC Glucose 152 mg/dl (70-99) H 07/11/21 17:03 POC Glucose (other) 150 mg/dl (70-99) H 07/10/21 18:31 Estimat Average Glucose 117 mg/dl 07/03/21 23:59 Hemoglobin A1c 5.7 % (4.5-5.6) H 07/03/21 23:59 Lactate 1.5 mmol/L (0.4-2.0) 07/03/21 20:14 Calcium 8.6 mg/dl (8.5-10.1) 07/23/21 05:49 Phosphorus 3.1 mg/dl (2.5-4.9) 07/17/21 06:37 Magnesium 2.2 mg/dl (1.7-2.4) 07/17/21 06:37 Total Bilirubin 0.6 mg/dl (0.2-1.0) 07/23/21 05:49 Direct Bilirubin 0.3 mg/dl (0-0.2) H 07/13/21 04:43 AST 25 U/L (13-39) 07/23/21 05:49 ALT 60 U/L (7-52) H 07/23/21 05:49 Alkaline Phosphatase 71 U/L (34-104) 07/23/21 05:49 Troponin I 0.03 ng/ml (0-0.04) 07/03/21 20:14 C-Reactive Protein 11.66 mg/dl (0-0.5) H 07/05/21 06:37 Total Protein 5.7 gm/dl (6.0-8.3) L 07/23/21 05:49 Albumin 3.1 gm/dl (3.4-5.0) L 07/23/21 05:49 Globulin 2.6 gm/dl (2.5-4.0) 07/23/21 05:49 Albumin/Globulin Ratio 1.2 (0.9-2) 07/23/21 05:49 Procalcitonin 0.09 ng/ml (0-0.5) 07/11/21 05:22 TSH 1.089 uIu/ml (0.300-4.500) 07/21/21 05:27 Nasal Screen MRSA (PCR) Positive (Negative) A 07/12/21 09:14 Vancomycin Trough < 3.0 mcg/ml (10-20) L 07/14/21 03:49 Random Vancomycin 14.8 mcg/ml (10-20) 07/14/21 19:16 Adenovirus (PCR) Not Detected (NotDetected) 07/03/21 20:14 B. pertussis DNA (PCR) Not Detected (NotDetected) 07/03/21 20:14 B.parapertussis DNA PCR Not Detected (NotDetected) 07/03/21 20:14 C. pneumoniae DNA (PCR) Not Detected (NotDetected) 07/03/21 20:14 Coronavirus OC43 (PCR) Not Detected (NotDetected) 07/03/21 20:14 Coronavirus HKU1 (PCR) Not Detected (NotDetected) 07/03/21 20:14 Coronavirus 229E (PCR) Not Detected (NotDetected) 07/03/21 20:14 SARS-CoV-2 (PCR) DETECTED (NotDetected) A* 07/03/21 20:14 Coronavirus NL63 (PCR) Not Detected (NotDetected) 07/03/21 20:14 Human Metapneumovir PCR Not Detected (NotDetected) 07/03/21 20:14 Influenza Type A (PCR) Not Detected (NotDetected) 07/03/21 20:14 Influenza Type B (PCR) Not Detected (NotDetected) 07/03/21 20:14 M. pneumoniae (PCR) Not Detected (NotDetected) 07/03/21 20:14 Parainfluenza 1 (PCR) Not Detected (NotDetected) 07/03/21 20:14 Parainfluenza 2 (PCR) Not Detected (NotDetected) 07/03/21 20:14 Parainfluenza 3 (PCR) Not Detected (NotDetected) 07/03/21 20:14 Parainfluenza 4 (PCR) Not Detected (NotDetected) 07/03/21 20:14 RSV (PCR) Not Detected (NotDetected) 07/03/21 20:14 Entero/Rhino (PCR) Not Detected (NotDetected) 07/03/21 20:14 Impressions Abdomen/Pelvis CT 07/03/21 23:31 CT abd pelvis IV con only CLINICAL HISTORY: ABD PAIN . Covid positive. COMPARISON STUDY: No previous studies for comparison. CT DOSE: TECHNIQUE: Standard CT of the Abdomen and Pelvis was performed with IV contrast. A dose lowering technique was utilized adhering to the principles of ALARA. Contrast Volume: Optiray 320, 94 ml. The patient did not receive oral contrast. FINDINGS: Lung base: There are marked interstitial and alveolar opacities present at the lung bases representing Covid pneumonia. Abdominal cavity: There is no evidence for abdominal mass, adenopathy or ascites. Liver: There is homogeneous attenuation of the liver parenchyma. There is no evidence for enhancing mass lesion. Spleen: There is homogeneous attenuation of the splenic parenchyma. There is no enhancing mass lesion. Pancreas: There is homogeneous attenuation of the pancreatic parenchyma. There is no evidence for mass lesion or peripancreatic fluid collection. Gall Bladder: The gallbladder is well distended with no evidence for intraluminal calculi, wall thickening or pericholecystic edema. Adrenal glands: The adrenal glands are normal in size and attenuation. There is no evidence for enhancing mass lesion. Kidneys: There is homogeneous attenuation of the renal parenchyma bilaterally. There is no evidence for renal calculus or hydronephrosis. There is no evidence for enhancing mass. Bowel: There is evidence for small sliding-type hiatal hernia. The bowel loops are normally placed within the abdomen and pelvis without evidence for dilatation or obstruction. There is mild to moderate fecal stasis without evidence for impaction or obstruction. There are no inflammatory changes present. There is no evidence for free air. There is a normal appendix in the right lower quadrant. Bladder: The bladder is mildly distended with no evidence for focal mass, calculus or diverticulum. : There is no evidence for pelvic mass or adenopathy. There is no evidence for pelvic ascites. Vasculature: There is no evidence for aneurysmal dilatation of the abdominal aorta. Osseous structures: There is no acute osseous pathology. IMPRESSION: 1. No acute intra-abdominal or pelvic abnormality. 2. Mild to moderate fecal stasis without evidence for impaction or obstruction. 3. Covid pneumonia. ACT 112: Negative or not required by law. Electronically signed by: Carlos Cruz M.D. 07/04/2021 8:[address] 07/03/21 23:40 CT chest diagnostic w con CLINICAL HISTORY: Increasing shortness of breath. Low oxygen saturation. Covid positive. COMPARISON STUDY: 07/02/2021 CT DOSE: 772.23 mGy.cm TECHNIQUE: Standard CT of the Chest was performed with IV contrast. A dose lowering technique was utilized adhering to the principles of ALARA. Contrast Volume: Optiray 320, 94 ml FINDINGS: Airway: The airway is clear. No endobronchial lesion is identified. Lungs: Compared to the previous examination, there has been marked interval worsening of of interstitial and alveolar groundglass opacities characteristic of Covid pneumonia. Pleura: There is no evidence for pleural effusion. There is no evidence for pneumothorax. Mediastinum: There is no evidence for pathologic adenopathy. The heart size is within normal limits. The thoracic aorta is within normal limits. There is no evidence for pericardial effusion. Upper abdomen: The adrenal glands are normal bilaterally. Osseous structures: There is no acute osseous pathology. IMPRESSION: Marked interval worsening of interstitial and alveolar groundglass opacities representing Covid pneumonia. ACT 112: Negative or not required by law. Electronically signed by: Carlos Cruz M.D. 07/04/2021 8:16 AM Chest X-Ray 07/12/21 07:00 XR chest 1V portable CLINICAL HISTORY: Follow-up airspace opacities. COMPARISON STUDY: 07/11/2021 TECHNIQUE: 1 view of the chest FINDINGS: Single frontal view of the chest demonstrates the cardiomediastinal silhouette to be within normal limits. Tubes and catheters are unchanged. Compared to previous examination, there is slight interval improvement of bilateral interstitial and alveolar opacities. No new confluent alveolar opacities or air bronchograms are seen. There is no evidence for pleural effusion. There is no evidence for vascular congestion. There is no acute osseous pathology. IMPRESSION: Slight interval improvement in bilateral interstitial and alveolar opacities. ACT 112: Negative or not required by law. Electronically signed by: Carlos Cruz M.D. 07/12/2021 7:31 AM Ribs w/Chest X-Ray 07/17/21 05:10 AP CHEST WITH LEFT-SIDED RIB SERIES CLINICAL HISTORY: Covid pneumonia. Left-sided chest wall pain FINDINGS: An AP upright chest radiograph with 4 additional views from a left- sided rib series is compared to study dated 07/12/2021. Correlation is made with chest CT dated 07/04/2021. An endotracheal tube, an enteric tube, and a right internal jugular central venous catheter have been removed. The cardiomediastinal silhouette is top normal for projection. Multifocal airspace consolidation is again seen throughout both lungs. This has modestly worsened as compared to 07/12/2021. There are small pleural effusions. No pneumothorax is seen. There is no radiographic evidence of acute/displaced left-sided rib fracture on the rib series. The remainder of the bony thorax is grossly intact. IMPRESSION: 1. Multifocal airspace consolidation has modestly worsened as compared to the 07/12/2021 examination. 2. Small pleural effusions. 3. There is no radiographic evidence of acute/displaced left-sided rib fracture on the rib series. ACT 112: Negative or not required by law. Electronically signed by: Tony Varner M.D. 07/17/2021 7:31 AM Hospital Course (1) Acute hypoxemic respiratory failure: Acute hypoxic respiratory failure with ARDS Multifocal pneumonia due to COVID-19 virus Patient was unvaccinated Symptoms Onset: 3 weeks prior to presentation COVID + on 07/03/21 CT Chest:Marked interval worsening of interstitial and alveolar groundglass opacities representing Covid pneumonia. Procalcitonin: 0.23,CRP:13.36 Condition deteriorated and required mechanical ventilation 07/08/21, Extubated on 07/12/21 S/p Tocilizumab and completed 10 days of dexamethasone Sputum culture grew MRSA ID was consulted and recommended po Bactrim or Doxycycline to complete a total of 7 days course Completed doxycycline Currently stable on 3 L of oxygen via oxygen mask Transaminitis Likely secondary to COVID 19 Liver enzymes improved Steroid-induced hyperglycemia Prediabetes HbA1C:5.7 Blood glucose controlled since off steroids Anxiety/depression Per previous provider, patient was on lexapro at home Psych consulted: Lexapro 10 mg for 1 month so could be increased in 5 mg increments to better target acute stress disorder though main complaint is nightmares Prazosin 1 mg qhs Can continue to utilize lorazepam 0.5 mg BID prn for panic attacks and/or hydroxyzine 25 mg q6h prn for panic attacks/anxiety Total Time Total Time Spent Total Time Spent (In Minutes): 35 Discharge Plan Discharge Items Patient Disposition: Transfer Inpatient Rehab Fac Reason For Visit: Shortness of breath Discharge Diagnosis: Acute hypoxic respiratory failure due to COVID-19 pneumonia Activity: As commented below Activity Comment: as per PT/OT Non-emergency contact: Primary Care Provider Call non-emergency contact if: you have any medication questions, your symptoms worsen, your pain is not controlled and you have a fever Follow-up/Referrals: [facility] [Other] - 09/14/21 12:00 pm (Appointment is for Medication Management) [facility] [Other] - 09/01/21 12:30 pm (Appointment for Counseling) PCP,NO [Primary Care Provider] - Diet: Regular Addtl Attending Provider Instructions: Patient presented to the hospital with worsening shortness of breath. Tested positive for COVID-19. Found to have acute hypoxic respiratory failure due to COVID-19 pneumonia. Required intubation and mechanical ventilation 07/08 through 07/12. Currently stable on 3 L of oxygen via OxiMax. Completed courses of Tocilizumab and dexamethasone. Sputum culture grew Staphylococcus species. MRSA testing positive. Completed a 7-day course of doxycycline per ID. Developed severe anxiety while admitted. Started on Lexapro and prazosin. Psychiatry recommending as needed lorazepam or hydroxyzine. Pending Studies at Discharge: No Stand-Alone Forms: [facility] Skilled Items Patient informed of condition?: Yes DNR: No Discharge Level of Care: Acute rehab Communicable Disease: No Discharge Prognosis: Improving Lines: None Urinary Catheter: No Medications and DC Order Prescriptions: New prazosin 1 mg Capsule 1 mg PO HS Qty: 1 RF: 0 melatonin 3 mg Tablet 3 mg PO HS PRN (Reason: insomnia) Qty: 1 RF: 0 tramadol 50 mg Tablet 50 mg PO BID PRN (Reason: pain) Qty: 1 RF: 0 lorazepam 0.5 mg Tablet 0.5 mg PO Q8H PRN (Reason: anxiety) Qty: 1 RF: 0 benzonatate 100 mg Capsule 100 mg PO TID PRN (Reason: cough) Qty: 1 RF: 0 escitalopram oxalate 10 mg Tablet 10 mg PO QAM Qty: 1 RF: 0 hydroxyzine pamoate 25 mg capsule 25 mg PO Q6H PRN (Reason: itching) Qty: 1 RF: 0 Continued ondansetron 4 mg tablet,disintegrating 4 mg PO Q6H PRN (Reason: nausea and vomiting) Qty: 20 RF: 0 Discontinued albuterol sulfate 90 mcg/actuation HFA aerosol inhaler 2 inh inhalation Q6H Qty: 18 RF: 2 benzonatate 200 mg capsule 200 mg PO TID PRN (Reason: cough) Qty: 60 RF: 0 acetaminophen 500 mg Tablet 500 - 1,000 mg PO Q6H PRN (Reason: Pain) RF: 0 ibuprofen 200 mg Tablet 400 mg PO Q6H PRN (Reason: Pain) RF: 0 Vicks NyQuil Cough 6.25-15 mg/15 mL Solution 15 ml PO Q4H PRN (Reason: Cough) RF: 0 Men's Daily Gummies 200 mcg Tablet,Chewable 2 tab PO DAILY RF: 0 prednisone 50 mg tablet 50 mg PO DAILY 5 Days Qty: 5 RF: 0 hydrocodone-homatropine [Hycodan] 5-1.5 mg/5 mL (5 mL) syrup 5 - 10 ml PO Q6H PRN (Reason: cough) Qty: 100 RF: 0 Discharge Orders: Discharge Order (Routine); Ordered 07/25/21 Ordered By: Angelica Buck Admission Data Admit Date/Time: 07/03/21 23:37 Attending Provider: Gregoria Acuna I. Admit Provider: Mk Xiong Primary Care Provider: PCP,NO Other Providers: Graeme Parish ; Chetan Chacon ; Claudette Platt ; [facility] ; Mendel Juarez ; Lilly Rizzo ; Karel Maldonado I. ; Eliud Horan II ; Wanda Altamirano ; Kirill Dorsey ; Daniel Cote ; Linda Devries ; Carine Montoya ; Nany Ralph ; Georgi Chowdhury ; Tj Niño ; Tony Stewart ; Nino Back ; Karel Noel ; Zack Holliday ; Mk Xiong Other Interventions: Discharge Summary Assessment (RN) Last Done: 07/25/21 12:12 Supervising Physician Co-Signing Physician Notes Patient seen and examined. 50-year-old man who presented with cough and shortness of breath. Found to have acute hypoxic respiratory failure due to COVID-19 pneumonia. Patient admits reduced with symptoms deteriorated and was intubated on 07/08/2021 and successfully extubated on 07/12/2021. Patient received Tocilizumab and completed 10 days of dexamethasone therapy. Was also treated with antibiotics sputum culture grew MRSA. Patient oxygen was weaned down successfully. However, patient has anxiety and depression with panic episodes. Was evaluated by psychiatry and has been on Aloprim and as needed Ativan. Was also started on prazosin at bedtime. Patient is discharged today to [facility] for rehab. Patient is to follow-up with psychiatry outpatient for continued management. I agree with findings and plans as detailed by Angelica ESPANA
[2021-07-25] MEDS ORDERED: ROCURONIUM BROMIDE 10 MG/ML 5 ML VIAL IV ONE (16:02)
[2021-07-25] MEDS ORDERED: LIDOCAINE 2% 20 MG/ML 5 ML SYR IV ONE (16:02)
[2021-07-25] MEDS ORDERED: ETOMIDATE 2 MG/ML 20 ML VIAL IV ONE (16:02)
== END 2021-07-25 16:03 | DRG 208 ==
LOC: ED 19:33 → SUATTDRO 23:37 → 2S 23:37 → 2E 07-04 10:58 → 1E 07-12 05:46 → 2E 07-15 09:38 → 3E 07-22 14:07